=== PATIENT | female | born 1955 | race Caucasian/White ===

== ENCOUNTER → 2022-01-12 08:43 | Outpatient (BNVA) | payer MEDICARE, SELFPAY | PROVIDERS: PCP Physician Assistant Medical; Visit Provider Hospitalist | DX: R91.8 Other nonspecific abnormal finding of lung field (principal); J21.9 Acute bronchiolitis, unspecified | CPT/HCPCS: 99202 ==

== ENCOUNTER 2022-01-21 06:36 | Day surgery (SDC) | payer MEDICARE, SELFPAY ==
[2022-01-18 10:24] VITALS: BMI 29.6
[2022-01-21] VITALS (8 sets, daily range): BP systolic 135–158; BP diastolic 70–83; PULSE 55–70; RESP 14–18; TEMP 36.3–36.7; O2SAT 97–100; BMI 29.9
--- NOTE | ~2022-01-21 | XR_ITS ---
EXAMINATION: XR CHEST CLINICAL INFORMATION: Status post right-sided lung biopsies COMPARISON: CT chest 11/27/2021 TECHNIQUE: Frontal view of the chest was obtained. FINDINGS: Again seen is evidence of prior surgery with the head suture line in the right upper lobe. No pneumothorax is seen. No lung masses detected at this time. The heart and pulmonary vessels appear normal. No CHF or pleural effusions. Degenerative changes and mild biconvex thoracolumbar scoliosis is present. XR/XR chest 1V IMPRESSION: No acute intrathoracic disease.
[2022-01-21] MEDS: Lactated Ringers 1,000 ML 50 ML IVCONT (07:11)
--- NOTE | 2022-01-21 07:28 | P.CONAN_ITS ---
[facility] Active Problems Active Problems: All Active Problems (Updated 01/18/22 @ 10:34 by Audrey Boles RN) Bronchiolitis (Acute) Pulmonary nodules (Acute) Past Medical History Medical History Asthma Basal cell carcinoma Bronchiolitis Depression Elevated cholesterol History of cerebral aneurysm HTN (hypertension) Migraine Osteoarthritis Pulmonary nodules Sleep apnea Tachyarrhythmia Family History Family history of problems with anesthesia: No Surgical History Surgical History (Updated 01/18/22 @ 10:34 by Audrey Boles RN) History of ankle surgery History of bladder suspension procedure History of bunionectomy History of cardiac radiofrequency ablation History of incisional hernia repair History of lung surgery History of total right knee replacement Hx of brain surgery Hx of breast biopsy Hx of cardiac catheterization Hx of cervical discectomy Hx of craniotomy Hx of hysterectomy History of Problems with Anesthesia: No Social History Social History (Updated 01/12/22 @ 08:54 by RACIEL Pacheco) Patient Tobacco Use Status: Former Tobacco user Quit Date: 1991 Tobacco use type: Cigarette Cigarettes Per Day: 20 Years Smoked: 25 Smoked in Last 30 Days: No Use of substances other than those prescribed or required for medical reasons: No Are you DNR?: No Advance Directives: No Advance Directives Information Provided: Yes Meds Allergies Allergy/AdvReac Type Severity Reaction Status Date / Time No Known Allergies Allergy Verified 01/21/22 06:42 Active Medications: Current Medications Albuterol Sulfate (Albuterol Sulfate (0.083%) 2.5 Mg/3 Ml Vial.Neb) 2.5 mg INHALE ONCE PRN PRN Reason: Shortness of Breath/Wheezing Lactated Ringer's (Lr) 1,000 mls @ 50 mls/hr IVCONT .Q20H YANG Last Admin: 01/21/22 07:11 Dose: 50 mls/hr Home Medications Medication Instructions Recorded Confirmed Last Taken Type flecainide 100 mg tablet 100 mg PO BID 01/12/22 01/21/22 01/21/22 05:50 History loteprednol etabonate 0.5 % eye 1 drp ophthalmic (eye) BID 01/12/22 01/21/22 Unknown History drops,suspension metoprolol succinate 25 mg 12.5 mg PO DAILY 01/12/22 01/21/2222 05:50 History tablet,extended release 24 hr omeprazole 20 mg capsule,delayed 20 mg PO DAILY 01/12/22 01/21/22 Unknown History release trazodone 50 mg tablet 100 mg PO BEDTIME PRN Insomnia 01/12/22 01/21/22 Unknown History lorazepam 0.5 mg tablet 0.5 mg PO BID PRN Anxiety 01/18/22 01/21/22 Unknown History Exam Exam Date and Time: January 21, [id number] Height,Weight and Vital Signs: Height 5 ft 5 in Weight 81.647 kg Last Vital Signs Temp 98.0 F 01/21/22 06:47 Pulse 55 01/21/22 06:47 Resp 16 01/21/22 06:47 BP 140/81 H 01/21/22 06:47 Pulse Ox 98 01/21/22 06:47 O2 Del Method 01/21/22 06:47 Airway Mallampati Class: I TM Dist: >3cm Neck ROM: Full Loose/Missing/Broken Teeth: No Heart: rrr Lungs: clear Assessment and Plan Final Anesthetic Review Family History of Problems with Anesthesia: No History of Problems with Anesthesia: No NPO: Yes ASA Class: III Final Preanesthetic Review: No Changes in Pt Med Stat, Meds/Allgs Chart Reviewed, Consent Obtained/Reviewed and Anes Risks/Benef Reviewed Patient Risk: Intermediate Procedure Risk: Intermediate Anesthetic Plan Anesthetic Plan: GA Disposition: Standard PACU
--- NOTE | 2022-01-21 08:00 | MHC.SHP ---
Pre-Procedural Eval Section A Date of Service: 01/21/22 The patient is an INPATIENT: No Changes since office visit: No Cold of Flu in the past 2 weeks, No New Medical Problems, No Changes in Medication and No Patient answered all questions Section B Chief Complaint: Other nonspecific abnormal finding of lung field Allergies: Allergies Allergy/AdvReac Type Severity Reaction Status Date / Time No Known Allergies Allergy Verified 01/21/22 06:42 Plan I have reviewed the history and physical and performed a pertinent physical examination on my patient. No changes have occurred unless specified.
[2022-01-21] MEDS: Mag&Al/Sim/Diphenhyd/Lidocaine 10 ML ORAL.SUSP PO (09:09)
--- NOTE | 2022-01-21 16:44 | P.BOP_ITS ---
Brief Operative Note Date of Service: 01/21/22 Pre-op diagnosis: pulmonary nodule Post-op diagnosis: other (pulmonary nodule, bronchitis) Procedure: bronchoscopy with tras-bronchial RML biopsies, washings, brushings Implants: Surgeon: Familia Koo MD Anesthesia: GETA Was an Agricultural Extension Officer used for this Procedure?: No Estimated blood loss (mL): 0 Condition: stable Disposition: same day
--- NOTE | 2022-01-22 08:35 | OP_ITS ---
SURGEON: Familia Koo MD PREOPERATIVE DIAGNOSIS: Pulmonary nodules. POSTOPERATIVE DIAGNOSIS: Pulmonary nodules and bronchitis. PROCEDURE PERFORMED: Bronchoscopy with transbronchial biopsies from the right middle lobe, washings and brushings. ESTIMATED BLOOD LOSS: COMPLICATIONS: None. There was some slight irritation to the larynx during intubation. ANESTHESIA: The patient received general endotracheal intubation. Difficult airway. Initially she did have some slight trauma to the larynx. ASSISTANTS: None. SPECIMENS: ASA CLASSIFICATION: 3. INTERPRETATION: 1. Successful transbronchial biopsies from the right middle lobe. 2. Microscopic and cytologic brushings from the right middle lobe. 3. Bronchial washings from the right middle lobe for microbiology and cytology. Chest x-ray post procedure without any pneumothoraces and no abnormalities. DESCRIPTION OF PROCEDURE: After the patient was adequately sedated, intubated. The flexible digital bronchoscope was inserted via the ET tube to the level of the main kayla. The patient had a clear trachea with a crisp main kayla. The bronchoscope was then navigated to the entire tracheobronchial tree that was examined to the subsegmental level. The patient did have some evidence of bronchitis with some mucus plugs and some slight erythema to the airways, primarily in the lingula area and also in the right middle lobe area. No evidence of any endobronchial lesions or anything to suggest cancer. The bronchoscope was navigated to the right middle lobe. A cytologic and microscopic brush was introduced and sent to the appropriate location. Bronchial washings were also collected. Then, using the forceps, transbronchial biopsies were collected from the right middle lobe area in the medial segment where the density in the tree and budding was located. The specimens were placed in formalin and then subsequently sent to the pathologist. No evidence of any bleeding. So therefore, epinephrine was not used. Saline was used with good hemostasis. No evidence of any bleeding at the end of the procedure. Then procedure was completed. The total endoscopic time approximately 50 minutes. MD ZEINAB Quezada/RY / [id number]
== END 2022-01-21 10:16 | disposition home or self-care (01) ==
PROVIDERS: PCP Physician Assistant Medical; Visit Provider Hospitalist
PROC: 0BJ08ZZ Inspection of Tracheobronchial Tree, Via Natural or Artificial Opening Endoscopic (ICD-10-PCS; CPT 31622; principal; 2022-01-21 08:00)
DX: R91.8 Other nonspecific abnormal finding of lung field (principal); J21.9 Acute bronchiolitis, unspecified; R06.09 Other forms of dyspnea; R00.0 Tachycardia, unspecified; Z87.891 Personal history of nicotine dependence; Z79.899 Other long term (current) drug therapy
CPT/HCPCS: 31628; 31623; 71045; 87071; 87102; 87116; 87186; 87205; 88112; 88305; J0171; J0330; J1100; J2250; J2405; J3010

== ENCOUNTER 2022-01-26 08:55 | Outpatient (REF) | payer MEDICARE, SELFPAY ==
--- NOTE | 2022-01-26 11:28 | PFT_ITS ---
FLOWS: FEV1 91% of predicted at 2.26 L. FVC 86% of predicted at 2.81 L. FEV1 to FVC ratio of 0.80. No bronchodilator response except in small to medium airways. LUNG VOLUMES: Total lung capacity 90% of predicted at 4.78 L. Residual volume 90% of predicted at 2.01 L. Slow vital capacity 90% of predicted at 2.77 L. Expiratory reserve volume 17% of predicted at 0.14 L. Diffusion capacity is mildly decreased, diffusion capacity corrects to normal after adjustment for alveolar ventilation. IMPRESSION: No obstructive or restrictive ventilatory defect. No bronchodilator response except in small to medium airways. Decreased expiratory reserve volume suggests extrathoracic restriction likely secondary to abdominal obesity. MD LULU Trevizo/MODL / [id number]
== END 2022-01-26 08:56 | disposition home or self-care (01) ==
LOC: HO.RESP 08:55
PROVIDERS: PCP Physician Assistant Medical; Visit Provider Hospitalist
DX: R91.8 Other nonspecific abnormal finding of lung field (principal)
CPT/HCPCS: 94060; 94727; 94729

== ENCOUNTER 2022-02-04 14:23 | Outpatient (REF) | payer MEDICARE, SELFPAY ==
[2022-02-04 14:55] LABS: MANUAL DIFF FLAG NO
[2022-02-04 15:16] LABS: Basophils Absolute Auto 0.1 X10*3/uL (0.0-0.2); Basophils Percent Auto 1.3 % (0-2); Eosinophils Absolute Auto 0.1 X10*3/uL (0.0-0.4); Eosinophils Percent Auto 2.2 % (0-4); Hematocrit 38.8 % (37.0-47.0); Hemoglobin 12.4 g/dl (12.0-16.0); Imm Gran Abs Auto 0.02 X10*3/uL (0.00-0.03); Imm Gran Pct Auto 0.3 % (0.0-0.4); Lymphocytes Absolute Auto 1.6 X10*3/uL (1.2-4.9); Mean Corpuscular Hemoglobin 28.1 pg (27.0-33.0); Mean Corpuscular Volume 87.8 fL (80.0-98.0); Mean Platelet Volume 9.7 fL (9.4-12.3); Monocytes Absolute Auto 0.5 X10*3/uL (0.1-1.2); Neutrophils Percent Auto 63.2 % (45-73); Platelet Count 249 X10*3/uL (160-400); Red Blood Count 4.42 X10*6/uL (4.20-5.50); White Blood Count 6.3 X10*3/uL (4.8-10.8)
[2022-02-04 15:58] LABS: Erythrocyte Sedimentation Rate 8 MM/HR (0-20)
[2022-02-04 15:59] LABS: Anion Gap 15 (12-20); Blood Urea Nitrogen 16 mg/dL (9-16); Calcium 9.7 mg/dL (8.4-10.2); Carbon Dioxide 26 mmol/L (22-29); Chloride 105 mmol/L (96-108); Estimated Glomerular Filt Rate 58; Glucose Random 87 mg/dL (60-115); Potassium 4.7 mmol/L (3.3-5.1); Sodium 141 mmol/L (135-145)
[2022-02-07 03:17] LABS: TS Negative Control Passed; TS Panel A 0; TS Panel B 0; TS Positive Control Passed; TSpotTB Negative (Negative)
[2022-02-08 13:32] LABS: Anti Nuclear Antibody Screen NEGATIVE (NEGATIVE)
[2022-02-08 15:52] LABS: Cyclic Citrullinated Peptide <16 UNITS
[2022-02-09 07:43] LABS: Antibody to SS-A Antigen <1.0 NEG AI (<1.0 NEG); Antibody to SS-B Antigen <1.0 NEG AI (<1.0 NEG)
[2022-02-09 16:06] LABS: Angiotensin Converting Enzyme 42.1 U/L (9-67)
[2022-02-12 11:52] LABS: Asperg fumigatus Precip Abs NEGATIVE (NEGATIVE); Micropoly faeni Abs NEGATIVE (NEGATIVE); Pigeon serum Abs NEGATIVE (NEGATIVE); Saccharo pora viridis Abs NEGATIVE (NEGATIVE); Thermo candidus Abs NEGATIVE (NEGATIVE); Thermoa vulgaris #1 NEGATIVE (NEGATIVE)
== END 2022-02-04 14:24 | disposition home or self-care (01) ==
LOC: HO.LAB 14:23
PROVIDERS: PCP Physician Assistant Medical; Visit Provider Hospitalist
DX: R91.8 Other nonspecific abnormal finding of lung field (principal); R59.9 Enlarged lymph nodes, unspecified; J21.9 Acute bronchiolitis, unspecified
CPT/HCPCS: 36415; 80048; 82164; 85025; 85652; 86038; 86039; 86200; 86235; 86331; 86481; 86606; 86609; 99212

== ENCOUNTER → 2022-05-10 09:50 | Outpatient (BNVA) | payer MEDICARE, SELFPAY | PROVIDERS: PCP Physician Assistant Medical; Visit Provider Hospitalist | DX: R91.8 Other nonspecific abnormal finding of lung field (principal); R59.9 Enlarged lymph nodes, unspecified; J21.9 Acute bronchiolitis, unspecified; J42 Unspecified chronic bronchitis | CPT/HCPCS: 99212 ==

== ENCOUNTER 2023-01-26 08:36 | Outpatient (AMB) | payer MEDICARE, SELFPAY ==
[2023-01-26 08:48] VITALS: PULSE 60; O2SAT 98; BMI 31.6
--- NOTE | 2023-01-26 08:48 | MHC.OFFVIS ---
Intake Vital Signs 01/26/23 08:48 Height 5 ft 5 in Weight 190 lb BMI 31.6 Pulse 60 Pulse Source Pulse Oximeter Pulse Oximetry (%) 98 Oxygen Delivery Method Room Air Intake Visit Reasons: CT Follow Up/Pulmonary Nodules Allergies No Known Allergies Allergy (Verified 01/26/23 08:50) HPI HPI Comments History of Present Illness Details The patient is a 67-year-old woman with a known history of numerous pulmonary nodules. The patient initially underwent surgery for a ground-glass pulmonary nodule at [facility] resulting in a partially herniated lung. She was referred to [facility] where she was seen by thoracic surgery and underwent a surgical correction. Ultimately while [facility] she had other pulmonary nodules noted in required again resection for growing pulmonary nodules. The patient was told she did not have cancer although we do not have the pathology either. Will have her send release of medical records in order to get the pathology from [facility] and I will also try to get the pathology from [facility]. The patient has been doing fairly well from a respiratory status. Although, she does complaint of dyspnea on exertion. Specially if she is going up a hill or flight of stairs. Denies any significant weight loss or night sweats. She has an intermittent cough but is usually nonproductive. The patient does not use any inhalers. She does have issues with tachyarrhythmias and does get short of breath also when heart rate is increased. She is on flecainide for her cardiac condition at this time. The patient had a CT scan of the chest back in 07/25/2020 demonstrating pulmonary nodules and some postsurgical changes of so that some scarring. Now on 11/27/2021 the patient had a repeat CT scan that was personally by me. I also reviewed her other CT scans from 2020. It appears that the right middle lobe density personally more rounded about and slight increase in size in my view. In addition to that she has extensive tree in budding in the right middle lobe area and also in the right lower lobe. Patient also has other pulmonary nodules noted. A in view of the interval increase in the nodular density in the right middle lobe and also the tree-in-bud I do believe that bronchoscopy be a good approach looking for smoldering infection such as mycobacterial infections. 02/04/2022 the patient is here for a pulmonary follow-up visit. She is status post bronchoscopy. The bronchoscopy was complicated by difficult intubation. She did have trauma to the larynx and also to her lip. She was upset about this. I was upset as well. Fortunately is the patient felt better after several days. Her microbiology from the bronchoscopy is no growth today. We still waiting for the mycobacterial cultures which may take up to 12 weeks. The fungal cultures are also no growth today. Her transbronchial biopsies demonstrated normal bronchoalveolar tissue which is reassuring. In addition to that, we did review her pathology from [facility] which demonstrated lymphoid hyperplastic areas and also the wedge biopsies that she did undergo at [facility] which also demonstrated the lymphoid proliferation in addition to that an area in the right upper lobe were it also demonstrated evidence of both non-necrotizing and necrotizing granulomas. We did talk about the differential of the lymphoproliferative conditions such as adding in conditions such as Sjogren's and also sarcoidosis. However, infectious etiology such as mycobacterial disease and also fungal infections also need to be differential crit that reason will going to have her undergo blood work as we wait for the cultures. Her last CT scan of the chest was done back in November 27 which demonstrated the interval worsening right middle lobe density and also tree-in-bud areas. Therefore, have her return in [address] scan to assess any interval worsening of the widening of density. We also did review her pulmonary function studies which are very timely normal except for a decreased diffusing capacity which is likely due to her lung resections. 05/10/2022 the patient is here for a pulmonary follow-up visit. Overall she is doing well from a respiratory status. Denies any significant coughing or shortness of breath. She denies any significant chest congestion. The only thing she does complaint this of night sweats that she has had for many years. She has not had any weight loss and has good appetite. We did review her CT scan of the chest that she had back in April 2022 demonstrating stable 2 cm nodular density in the right middle lobe along with areas of tree in budding in the same distribution. 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 She understands that these infections can be smoldering. The CT scan has no changed as compared to the last 1 which is reassuring. As far as the MAC infection seems to be pansensitive to the macrolides which is reassuring. Although clinically the patient is doing well enough since changing on her CT scans therefore I did recommend holding off on antibacterial therapy at this time. The patient understands that when she does start therapy if she does needed will require 3 antibiotics 3 times a week at least an usually for 15-17 months. She also understands that there is a high risk of relapse. So therefore the patient will monitor symptoms and will plan to repeat the CT scan sometime in the fall 2022. If the patient starts becoming more symptomatic or if her CT scans abnormal then we can consider treating that time. At this time though the with the treating budding will have her perform an Acapella valve for chest physical therapy and decrease mucus plugging burden. 01/26/2023 the patient is here for a pulmonary follow-up visit. The patient overall has been doing well. She denies any significant cough or shortness of breath. She denies any significant weight loss. Actually she is gained weight. Appetite is good. We did review her most recent CT scan of the chest done December. We also compared to her previous CT scans. She does have the right middle lobe airspace disease with parenchymal thickening. I did review back to 2020 and not much different. At this point the patient continues to be asymptomatic. We did discuss starting antimicrobial therapy for mycobacterial disease. Although she understands treatment is prolonged multiple antibiotics. As long as the patient is feeling well we can hold off on treatment. But, I am emphasizing the need for CPT for mucus clearance and bronchopulmonary hygiene. The patient should be using the Acapella valve twice a day. Again I instructed how to use it. Will plan to repeat the CT scan in a year's time or sooner if he develops any worsening symptoms. [facility] Medical History (Updated 05/10/22 @ 12:46 by Familia Koo MD) Chronic bronchitis Osteoarthritis Migraine Elevated cholesterol HTN (hypertension) Basal cell carcinoma Depression Asthma Sleep apnea History of cerebral aneurysm Tachyarrhythmia Bronchiolitis Pulmonary nodules Surgical History (Updated 01/18/22 @ 10:34 by Audrey Boles RN) Hx of cervical discectomy History of total right knee replacement Hx of hysterectomy Hx of brain surgery Hx of craniotomy History of bunionectomy Hx of breast biopsy History of bladder suspension procedure History of ankle surgery History of cardiac radiofrequency ablation Hx of cardiac catheterization History of incisional hernia repair History of lung surgery Social History (Updated 01/12/22 @ 08:54 by HAYDE Pacheco Patient Tobacco Use Status: Former Tobacco user Quit Date: 1991 Tobacco use type: Cigarette Cigarettes Per Day: 20 Years Smoked: 25 Review of Systems Const Denies excessive sweating, Denies fatigue, Denies fever(s), Reports night sweats and Reports weight gain Eyes Denies change in vision ENT Denies sore throat Card Denies chest pain Resp Denies change in phlegm color, Denies chest congestion, Reports cough, Denies hemoptysis, Denies excessive phlegm production, Denies pain on inspiration, Denies pain with cough and Denies wheezing GI Denies abdominal pain Musc Reports abnormal gait Skin/Breast Denies rash Neuro Reports no additional complaints and Reports abnormal gait Endo Denies excessive sweating and Denies fatigue Junior/Lymph Denies easy bleeding and Denies easy bruising Aller/Immun Denies urticaria, Denies seasonal rhinorrhea and Denies wheezing Physical Exam Vital Signs: Last Vital Signs Pulse 60 01/26/23 08:48 Pulse Ox 98 01/26/23 08:48 Oxygen Delivery Method Room Air 01/26/23 08:48 BMI result Body Mass Index 31.6 Const General: comfortable Limitations: crutches HEENT Head: Yes normal to inspection Eyes General: appearance normal, both eyes and all related structures Neck Neck: Yes supple Chest Chest palpation & inspection: normal inspection of the chest Resp Effort & Inspection: normal respiratory effort Auscultation: clear to auscultation bilaterally Cardio Rate: regular rate Rhythm: regular rhythm Heart sounds: S1 normal heart sound present and S2 normal heart sound present GI Auscultation: normal bowel sounds Skin General skin exam: no rashes or lesions noted Extrem General: Yes normal to inspection Assessment & Plan Assessment & Plan (1) Pulmonary nodules: Code(s): R91.8 - Other nonspecific abnormal finding of lung field (2) Bronchiolitis: Code(s): J21.9 - Acute bronchiolitis, unspecified (3) Lymphoid hyperplasia: Comment: with non necrotizing and necrotizing granulomas Code(s): R59.9 - Enlarged lymph nodes, unspecified (4) Chronic bronchitis: Code(s): J42 - Unspecified chronic bronchitis Plan Area in the RML nodular density appears to be larger with evidence of tree-in-bud suggesting bronchiolitis. Her bronchoscopy cytology and pathology were negative for any malignancy which is reassuring. Her previous pathologies demonstrated areas of lymphoid hyperplasia and also caseating and noncaseating granulomas. Micro + for MAC. REC: Repeat CT chest 1 year or sooner if any new symptoms arise Consider treating the MAC if more symptomatic or worsening CT chest CPT with acapella valve F/U 1 year or sooner if symptomatic Coding Level of Care Code Est Pt Level 4 (08809) Diagnoses Pulmonary nodules R91.8 Bronchiolitis J21.9 Lymphoid hyperplasia R59.9 Chronic bronchitis J42 Time Spent (min) 18
== END 2023-01-26 10:01 | disposition home or self-care (01) ==
PROVIDERS: PCP Physician Assistant Medical; Visit Provider Hospitalist
DX: R91.8 Other nonspecific abnormal finding of lung field (principal); J21.9 Acute bronchiolitis, unspecified; R59.9 Enlarged lymph nodes, unspecified; J42 Unspecified chronic bronchitis
CPT/HCPCS: 99214

== ENCOUNTER → 2023-01-26 08:36 | Outpatient (BNVA) | payer MEDICARE, SELFPAY | PROVIDERS: PCP Physician Assistant Medical; Visit Provider Hospitalist | DX: R91.8 Other nonspecific abnormal finding of lung field (principal); J21.9 Acute bronchiolitis, unspecified; J42 Unspecified chronic bronchitis; R59.9 Enlarged lymph nodes, unspecified | CPT/HCPCS: 99212 ==

== ENCOUNTER 2023-02-23 08:09 | Outpatient (REF) | payer MEDICARE, SELFPAY ==
--- NOTE | ~2023-02-23 | US_ITS ---
EXAMINATION: US THYROID CLINICAL INFORMATION: Nontoxic single thyroid nodule. COMPARISON: None available. TECHNIQUE: Linear transducer grayscale and color Doppler examination with attention to the region of the thyroid. FINDINGS: SIZE: Measurements of the thyroid lobes and nodules are given in sagittal, anteroposterior and transverse dimensions respectively. Right Thyroid Lobe: 4.7 x 1.2 x 1.4 cm, volume 4.1 mL. Parenchyma: The gland echotexture is homogeneous. Thyroid vascularity is increased. Left Thyroid Lobe: 3.9 x 0.95 x 1.2 cm, volume 2.3 mL. Parenchyma: The gland echotexture is homogeneous. Thyroid vascularity is increased. Isthmus: 0.32 cm in maximum AP dimension. Estimated total number of nodules greater than or equal to 1 cm: 0. Big Data Developer nodules are described as follows: 1. Location: Right inferior. Size: 0.41 x 0.27 x 0.41 cm, volume 0.02 mL. Nodule characteristics: Composition: Cystic(0). ACR TI-RADS total points: 0 ACR TI-RADS category: 1 2. Location: Right mid. Size: 0.46 x 0.35 x 0.45 cm, volume 0.04 mL. Nodule characteristics: Composition: Cystic(0). ACR TI-RADS total points: 0 ACR TI-RADS category: 1 3. Location: Left superior. Size: 0.35 x 0.20 x 0.27 cm, volume 0.01 mL. Nodule characteristics: Composition: Cystic(0). ACR TI-RADS total points: 0 ACR TI-RADS category: 1 4. Location: Left superior. Size: 0.34 x 0.20 x 0.36 cm, volume 0.01 mL. Nodule characteristics: Composition: Cystic(0). ACR TI-RADS total points: 0 ACR TI-RADS category: 1 NODES: No lymphadenopathy is seen in the tissue surrounding the thyroid gland. US/US thyroid IMPRESSION: Bilateral subcentimeter thyroid nodules all with ACR TI-RADS total points of 0. ACR TI-RADS RECOMMENDATION REFERENCE: Ultrasound-guided fine-needle aspiration, followup ultrasound, no further follow up. * TR1 (0 point) and TR2 (2 points): No FNA or follow up. * TR3 (3 points): FNA if more than or equal to 2.5 cm in maximum dimension, followup ultrasound in 1, 3 and 5 years if 1.5 to 2.4 cm in maximum dimension. * TR4 (4-6 points): FNA if more than or equal to 1.5 cm in maximum dimension, followup ultrasound in 1, 2, 3 and 5 years if 1 to 1.4 cm in maximum dimension. * TR5 (more than or equal to 7 points): FNA if more than or equal to 1 cm in maximum dimension, followup ultrasound every year for 5 years if 0.5 to 0.9 cm in maximum dimension. * TR3, TR4 or TR5 nodules that are below the size threshold for followup receive no follow up.
== END 2023-02-23 08:10 | disposition home or self-care (01) ==
LOC: HO.US 08:09
PROVIDERS: Visit Provider Hospitalist
DX: E04.1 Nontoxic single thyroid nodule (principal)
CPT/HCPCS: 76536

== ENCOUNTER 2024-02-01 10:49 | Outpatient (AMB) | payer MEDICARE, SELFPAY ==
[2024-02-01 11:02] VITALS: BP 128/70; PULSE 57; O2SAT 96; BMI 33.4
--- NOTE | 2024-02-01 11:02 | MHC.OFFVIS ---
Vital Signs 02/01/24 11:02 Height 5 ft 5.5 in Weight 203 lb 14.841 oz BMI 33.4 BP 128/70 Blood Pressure Location Lt brachial Position Sitting Pulse 57 Pulse Source Pulse Oximeter Pulse Oximetry (%) 96 Oxygen Delivery Method Room Air Intake Visit Reasons: pulmonary nodules Edge Inker Heels Required: No Allergies No Known Allergies Allergy (Verified 02/01/24 11:03) HPI Comments Details: The patient is a 68-year-old woman with a known history of numerous pulmonary nodules. The patient initially underwent surgery for a ground-glass pulmonary nodule at [facility] resulting in a partially herniated lung. She was referred to [facility] where she was seen by thoracic surgery and underwent a surgical correction. Ultimately while [facility] she had other pulmonary nodules noted in required again resection for growing pulmonary nodules. The patient was told she did not have cancer although we do not have the pathology either. Will have her send release of medical records in order to get the pathology from [facility] and I will also try to get the pathology from [facility]. The patient has been doing fairly well from a respiratory status. Although, she does complaint of dyspnea on exertion. Specially if she is going up a hill or flight of stairs. Denies any significant weight loss or night sweats. She has an intermittent cough but is usually nonproductive. The patient does not use any inhalers. She does have issues with tachyarrhythmias and does get short of breath also when heart rate is increased. She is on flecainide for her cardiac condition at this time. The patient had a CT scan of the chest back in 07/25/2020 demonstrating pulmonary nodules and some postsurgical changes of so that some scarring. Now on 11/27/2021 the patient had a repeat CT scan that was personally by me. I also reviewed her other CT scans from 2020. It appears that the right middle lobe density personally more rounded about and slight increase in size in my view. In addition to that she has extensive tree in budding in the right middle lobe area and also in the right lower lobe. Patient also has other pulmonary nodules noted. A in view of the interval increase in the nodular density in the right middle lobe and also the tree-in-bud I do believe that bronchoscopy be a good approach looking for smoldering infection such as mycobacterial infections. 02/04/2022 the patient is here for a pulmonary follow-up visit. She is status post bronchoscopy. The bronchoscopy was complicated by difficult intubation. She did have trauma to the larynx and also to her lip. She was upset about this. I was upset as well. Fortunately is the patient felt better after several days. Her microbiology from the bronchoscopy is no growth today. We still waiting for the mycobacterial cultures which may take up to 12 weeks. The fungal cultures are also no growth today. Her transbronchial biopsies demonstrated normal bronchoalveolar tissue which is reassuring. In addition to that, we did review her pathology from [facility] which demonstrated lymphoid hyperplastic areas and also the wedge biopsies that she did undergo at [facility] which also demonstrated the lymphoid proliferation in addition to that an area in the right upper lobe were it also demonstrated evidence of both non-necrotizing and necrotizing granulomas. We did talk about the differential of the lymphoproliferative conditions such as adding in conditions such as Sjogren's and also sarcoidosis. However, infectious etiology such as mycobacterial disease and also fungal infections also need to be differential crit that reason will going to have her undergo blood work as we wait for the cultures. Her last CT scan of the chest was done back in November 27 which demonstrated the interval worsening right middle lobe density and also tree-in-bud areas. Therefore, have her return in [address] scan to assess any interval worsening of the widening of density. We also did review her pulmonary function studies which are very timely normal except for a decreased diffusing capacity which is likely due to her lung resections. 05/10/2022 the patient is here for a pulmonary follow-up visit. Overall she is doing well from a respiratory status. Denies any significant coughing or shortness of breath. She denies any significant chest congestion. The only thing she does complaint this of night sweats that she has had for many years. She has not had any weight loss and has good appetite. We did review her CT scan of the chest that she had back in April 2022 demonstrating stable 2 cm nodular density in the right middle lobe along with areas of tree in budding in the same distribution. 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 She understands that these infections can be smoldering. The CT scan has no changed as compared to the last 1 which is reassuring. As far as the MAC infection seems to be pansensitive to the macrolides which is reassuring. Although clinically the patient is doing well enough since changing on her CT scans therefore I did recommend holding off on antibacterial therapy at this time. The patient understands that when she does start therapy if she does needed will require 3 antibiotics 3 times a week at least an usually for 15-17 months. She also understands that there is a high risk of relapse. So therefore the patient will monitor symptoms and will plan to repeat the CT scan sometime in the fall 2022. If the patient starts becoming more symptomatic or if her CT scans abnormal then we can consider treating that time. At this time though the with the treating budding will have her perform an Acapella valve for chest physical therapy and decrease mucus plugging burden. 01/26/2023 the patient is here for a pulmonary follow-up visit. The patient overall has been doing well. She denies any significant cough or shortness of breath. She denies any significant weight loss. Actually she is gained weight. Appetite is good. We did review her most recent CT scan of the chest done December. We also compared to her previous CT scans. She does have the right middle lobe airspace disease with parenchymal thickening. I did review back to 2020 and not much different. At this point the patient continues to be asymptomatic. We did discuss starting antimicrobial therapy for mycobacterial disease. Although she understands treatment is prolonged multiple antibiotics. As long as the patient is feeling well we can hold off on treatment. But, I am emphasizing the need for CPT for mucus clearance and bronchopulmonary hygiene. The patient should be using the Acapella valve twice a day. Again I instructed how to use it. Will plan to repeat the CT scan in a year's time or sooner if he develops any worsening symptoms. 02/01/2024 the patient is here for a pulmonary follow-up visit. The patient overall has been doing well. She has had issues with her knee and therefore was immobilized for some time after having surgery and has not been able to exercise regularly. Unfortunately she gained about 20 lb which is bothersome to her. She feels like it has affected her breathing. She does complaint of dyspnea on exertion which is [id number] severity. Also complains of cough. She also noticed some wheezing at times. We did review her last CT scan of the chest that she had just a few weeks ago at [facility]. I personally reviewed and compared to her previous CT scan. No significant changes in the nodular densities in the right middle lobe. She also has some atelectasis in the left lower lobe area and some changes in the right upper lobe area as well that appeared to be stable and unchanged. Will plan to have her come back in a year and repeat her PFTs and also her CT scan. In the meantime she will start using her rescue inhaler. Hopefully this is enough. She does have a history of cardiac arrhythmias of send her Xopenex. If the patient still has worsening shortness of breath or wheezing while in the Xopenex she always call and we can think about a maintenance inhaler and may be considering the PFTs at an earlier time. [facility] Medical History (Updated 02/01/24 @ 22:15 by Familia Koo MD) Chronic bronchitis Osteoarthritis Migraine Elevated cholesterol HTN (hypertension) Basal cell carcinoma Depression Asthma Sleep apnea History of cerebral aneurysm Tachyarrhythmia Bronchiolitis Pulmonary nodules Surgical History (Updated 01/18/22 @ 10:34 by Audrey Boles RN) Hx of cervical discectomy History of total right knee replacement Hx of hysterectomy Hx of brain surgery Hx of craniotomy History of bunionectomy Hx of breast biopsy History of bladder suspension procedure History of ankle surgery History of cardiac radiofrequency ablation Hx of cardiac catheterization History of incisional hernia repair History of lung surgery Social History (Updated 01/12/22 @ 08:54 by RACIEL Pacheco) Patient Tobacco Use Status: Former Tobacco user Tobacco use type: Cigarette Cigarettes Per Day: 20 Years Smoked: 25 Review of Systems Const Denies excessive sweating, Denies fatigue, Denies fever(s) and Reports weight gain Eyes Denies change in vision ENT Denies sore throat Card Denies chest pain Resp Denies change in phlegm color, Denies chest congestion, Reports cough, Denies hemoptysis, Denies excessive phlegm production, Denies pain on inspiration, Denies pain with cough and Denies wheezing GI Denies abdominal pain Musc Reports no additional complaints Skin/Breast Denies rash Neuro Reports no additional complaints Endo Denies excessive sweating and Denies fatigue Junior/Lymph Denies easy bleeding and Denies easy bruising Aller/Immun Denies urticaria, Denies seasonal rhinorrhea and Denies wheezing Physical Exam Vital Signs: Last Vital Signs Pulse 57 02/01/24 11:02 BP 128/70 02/01/24 11:02 Pulse Ox 96 02/01/24 11:02 Oxygen Delivery Method Room Air 02/01/24 11:02 BMI result Body Mass Index 33.4 Const General: comfortable Limitations: crutches HEENT Head: Yes normal to inspection Eyes General: appearance normal, both eyes and all related structures Neck Neck: Yes supple Chest Chest palpation & inspection: normal inspection of the chest Resp Effort & Inspection: normal respiratory effort Auscultation: wheezes and diminished lung sounds Cardio Rate: regular rate Rhythm: regular rhythm Heart sounds: S1 normal heart sound present and S2 normal heart sound present GI Auscultation: normal bowel sounds Skin General skin exam: no rashes or lesions noted Extrem General: Yes normal to inspection Assessment & Plan Assessment & Plan (1) Pulmonary nodules: Code(s): R91.8 - Other nonspecific abnormal finding of lung field Category: Medical (2) Bronchiolitis: Code(s): J21.9 - Acute bronchiolitis, unspecified Category: Medical (3) Lymphoid hyperplasia: Comment: with non necrotizing and necrotizing granulomas Code(s): R59.9 - Enlarged lymph nodes, unspecified Category: Medical (4) Chronic bronchitis: Code(s): J42 - Unspecified chronic bronchitis Category: Medical Qualifiers: Chronic bronchitis type: simple Qualified Code(s): J41.0 - Simple chronic bronchitis Plan Area in the RML nodular density appears to be larger with evidence of tree-in-bud suggesting bronchiolitis. Her bronchoscopy cytology and pathology were negative for any malignancy which is reassuring. Her previous pathologies demonstrated areas of lymphoid hyperplasia and also caseating and noncaseating granulomas. Micro + for MAC. REC: start Xopenex as needed and before exercise Repeat CT chest 1 year or sooner if any new symptoms arise Consider treating the MAC if more symptomatic or worsening CT chest CPT with acapella valve PFTs in 1 yr or sooner if worsening respiratory symptoms weight management F/U 1 year or sooner if symptomatic Orders: Orders PFT pulmonary function test 1 Year R91.8 - Other nonspecific abnormal finding of lung field CT chest wo IV con 1 Year R91.8 - Other nonspecific abnormal finding of lung field Medications: New levalbuterol tartrate 45 mcg/actuation 1 puff inhalation Q4H PRN 15 ea 11RF for wheezing Coding Level of Care Code Est Pt Level 4 (00286) Diagnoses Pulmonary nodules R91.8 Bronchiolitis J21.9 Lymphoid hyperplasia R59.9 Simple chronic bronchitis J41.0 Chronic bronchitis type: simple Time Spent (min) 17
== END 2024-02-01 11:26 | disposition home or self-care (01) ==
PROVIDERS: PCP Physician Assistant Medical; Visit Provider Hospitalist
DX: R91.8 Other nonspecific abnormal finding of lung field (principal); J21.9 Acute bronchiolitis, unspecified; R59.9 Enlarged lymph nodes, unspecified; J41.0 Simple chronic bronchitis
CPT/HCPCS: 99214

== ENCOUNTER → 2024-02-01 10:49 | Outpatient (BNVA) | payer MEDICARE, SELFPAY | PROVIDERS: PCP Physician Assistant Medical; Visit Provider Hospitalist | DX: J41.0 Simple chronic bronchitis (principal); J21.9 Acute bronchiolitis, unspecified; R91.8 Other nonspecific abnormal finding of lung field; R59.9 Enlarged lymph nodes, unspecified | CPT/HCPCS: 99212 ==

== ENCOUNTER 2025-01-30 09:53 | Outpatient (AMB) | payer MEDICARE, SELFPAY ==
--- OUTSIDE RECORDS SUMMARY | 2024-09-06 04:30 | XMS_ITS ---
Author Organization [facility] Address [address] [place] [address] Care Team Providers Care Laminating Machine Operator Name Role Phone Jennifer Lipscomb PA-C Primary Care Provider Carine vailable Viri Agudelo Unavailable [phone] Gosia Rosario [phone] REASON FOR VISIT Seen Sooner Encounters Encounter Location Date Provider Diagnosis [facility] [address] [place] [address] 09/06/2024 Gosia Rosario Plan Of Treatment Next Appt Details Provider Name:Viri Agudelo , 03/05/2025 11:00:00 AM, [address] [place], [address], Progress Notes * Kanchan ZIMMERMAN MDOB:1955 (69 yo F)Acc No.[id number]:09/06/2024 Progress Notes Patient: Cate Kanchan MCBRIDE Provider: Joe Rosario DPM :1955 A ge:68 Y S ex:Female Date:09/06/2024 [place] Pcp:Jennifer Lipscomb PA-C Subjective: * Chief Complaints: * 1 . Seen Sooner. * Medical History: Objective: * Vitals: Assessment: Plan: * Treatment: * Images: * The named appointment provid er may or may not be the originator of this progress note, and it is not deemed complete until electronically signed by the appointment provider. Sign off status: Pending * Provider: Joe Rosario DPM Date: 0 09/06/2024 Generated for Tom Cornejo/Malik on: 1 10:56 AM EDT
[2025-01-30 09:57] VITALS: BP 128/72; PULSE 68; O2SAT 98; BMI 29.6
--- NOTE | 2025-01-30 09:57 | A.OFFVIS_ITS ---
Vital Signs 01/30/25 09:57 Height 5 ft 5.5 in Weight 180 lb 12.465 oz BMI 29.6 BP 128/72 Blood Pressure Location Lt brachial Position Sitting Pulse 68 Pulse Source Pulse Oximeter Pulse Oximetry (%) 98 Oxygen Delivery Method Room Air Intake Visit Reasons: Pulmonary Nodules Accompanied by: Self / Same As Patient Allergies No Known Allergies Allergy (Verified 01/30/25 10:02) HPI Comments Details: The patient is a 69 year-old woman with a known history of numerous pulmonary nodules. The patient initially underwent surgery for a ground-glass pulmonary nodule at [facility] resulting in a partially herniated lung. She was referred to [facility] where she was seen by thoracic surgery and underwent a surgical correction. Ultimately while [facility] she had other pulmonary nodules noted in required again resection for growing pulmonary nodules. The patient was told she did not have cancer although we do not have the pathology either. Will have her send release of medical records in order to get the pathology from [facility] and I will also try to get the pathology from [facility]. The patient has been doing fairly well from a respiratory status. Although, she does complaint of dyspnea on exertion. Specially if she is going up a hill or flight of stairs. Denies any significant weight loss or night sweats. She has an intermittent cough but is usually nonproductive. The patient does not use any inhalers. She does have issues with tachyarrhythmias and does get short of breath also when heart rate is increased. She is on flecainide for her cardiac condition at this time. The patient had a CT scan of the chest back in 07/25/2020 demonstrating pulmonary nodules and some postsurgical changes of so that some scarring. Now on 11/27/2021 the patient had a repeat CT scan that was personally by me. I also reviewed her other CT scans from 2020. It appears that the right middle lobe d ensity personally more rounded about and slight increase in size in my view. In addition to that she has extensive tree in budding in the right middle lobe area and also in the right lower lobe. Patient also has other pulmonary nodules noted. A in view of the interval increase in the nodular density in the right middle lobe and also the tree-in-bud I do believe that bronchoscopy be a good approach looking for smoldering infection such as mycobacterial infections. 02/04/2022 the patient is here for a pulmonary follow-up visit. She is status post bronchoscopy. The bronchoscopy was complicated by difficult intubation. She did have trauma to the larynx and also to her lip. She was upset about this. I was upset as well. Fortunately is the patient felt better after several days. Her microbiology from the bronchoscopy is no growth today. We still waiting for the mycobacterial cultures which may take up to 12 weeks. The fungal cultures are also no growth today. Her transbronchial biopsies demonstrated normal bronchoalveolar tissue which is reassuring. In addition to that, we did review her pathology from [facility] which demonstrated lymphoid hyperplastic areas and also the wedge biopsies that she did undergo at [facility] which also demonstrated the lymphoid proliferation in addition to that an area in the right upper lobe were it also demonstrated evidence of both non-necrot izing and necrotizing granulomas. We did talk about the differential of the lymphoproliferative conditions such as adding in conditions such as Sjogren's and also sarcoidosis. However, infectious etiology such as mycobacterial disease and also fungal infections also need to be differential crit that reason will going to have her undergo blood work as we wait for the cultures. Her last CT scan of the chest was done back in November 27 which demonstrated the interval worsening right middle lobe density and also tree-in-bud areas. Therefore, have her return in [address] scan to assess any interval worsening of the widening of density. We also did review her pulmonary function studies which are very timely normal except for a decreased diffusing capacity which is likely due to her lung resections. 05/10/2022 the patient is here for a pulmonary follow-up visit. Overall she is doing well from a respiratory status. Denies any significant coughing or shortness of breath. She denies any significant chest congestion. The only thing she does complaint this of night sweats that she has had for many years. She has not had any weight loss and has good appetite. We did review her CT scan of the chest that she had back in April 2022 demonstrating stable 2 cm nodular density in the right middle lobe along with areas of tree in budding in the same distribution. 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 She understands that these infections can be smoldering. The CT scan has no changed as compared to the last 1 which is reassuring. As far as the MAC infection seems to be pansensitive to the macrolides which is reassuring. Although clinically the patient is doing well enough since changing on her CT scans therefore I did recommend holding off on antibacterial therapy at this time. The patient understands that when she does start therapy if she does needed will require 3 antibiotics 3 times a week at least an usually for 15-17 months. She also understands that there is a high risk of relapse. So therefore the patient will monitor symptoms and will plan to repeat the CT scan sometime in the fall 2022. If the patient starts becoming more symptomatic or if her CT scans abnormal then we can consider treating that time. At this time though the with the treating budding will have her perform an Acapella valve for chest physical therapy and decrease mucus plugging burden. 01/26/2023 the patient is here for a pulmonary follow-up visit. The patient overall has been doing well. She denies any significant cough or shortness of breath. She denies any significant weight loss. Actually she is gained weight. Appetite is good. We did review her most recent CT scan of the chest done December. We also compared to her previous CT scans. She does have the right middle lobe airspace disease with parenchymal thickening. I did review back to 2020 and not much different. At this point the patient continues to be asymptomatic. We did discuss starting antimicrobial therapy for mycobacterial disease. Although she understands treatment is prolonged multiple antibiotics. As long as the patient is feeling well we can hold off on treatment. But, I am emphasizing the need for CPT for mucus clearance and bronchopulmonary hygiene. The patient should be using the Acapella valve twice a day. Again I instructed how to use it. Will plan to repeat the CT scan in a year's time or sooner if he develops any worsening symptoms. 02/01/2024 the patient is here for a pulmonary follow-up visit. The patient overall has been doing well. She has had issues with her knee and therefore was immobilized for some time after having surgery and has not been able to exercise regularly. Unfortunately she gained about 20 lb which is bothersome to her. She feels like it has affected her breathing. She does complaint of dyspnea on exertion which is [id number] severity. Also complains of cough. She also noticed some wheezing at times. We did review her last CT scan of the chest that she had just a few weeks ago at [facility]. I personally reviewed and compared to her previous CT scan. No significant changes in the nodular densities in the right middle lobe. She also has some atelectasis in the left lower lobe area and some changes in the right upper lobe area as well that appeared to be stable and unchanged. Will plan to have her come back in a year and repeat her PFTs and also her CT scan. In the meantime she will start using her rescue inhaler. Hopefully this is enough. She does have a history of cardiac arrhythmias of send her Xopenex. If the patient still has worsening shortness of breath or wheezing while in the Xopenex she always call and we can think about a maintenance inhaler and may be considering the PFTs at an earlier time. 01/30/2025 the patient is here for pulmonary follow-up visit. Overall the patient is complaining of worsening dyspnea on exertion. Specially going up a flight of stairs. Moderate severity. She has tried inhalers in the past without any significant improvement. She does have pulmonary function studies scheduled. In the meantime we did go for brief walking oximetry the patient did maintain a pulse ox above 97 98%. Heart rate was stable. She did follow-up with Cardiology. She did have an EKG. The patient does complaint of heaviness of the thighs suggesting some degree of provocation. She is going to have a CT scan of the abdomen looking for peripheral vascular disease. The patient also did undergo a CT scan of the chest that was personally by me. She had 01/09/2025 and this was a local place. She does have still some nodular densities in the right middle lobe which is stable compared to 2023. No evidence of any parenchymal disease elsewhere. No explanation for the patient has worsening dyspnea symptoms. Will see if there is any worsening PFT findings. The patient does have decreased lung volume because of lung resection. [facility] Medical History (Updated 01/30/25 @ 21:58 by Familia Koo MD) Dyspnea Chronic bronchitis Osteoarthritis Migraine Elevated cholesterol HTN (hypertension) Basal cell carcinoma Depression Asthma Sleep apnea History of cerebral aneurysm Tachyarrhythmia Bronchiolitis Pulmonary nodules Surgical History (Updated 01/18/22 @ 10:34 by Audrey Boles RN) Hx of cervical discectomy History of total right knee replacement Hx of hysterectomy Hx of brain surgery Hx of craniotomy History of bunionectomy Hx of breast biopsy History of bladder suspension procedure History of ankle surgery History of cardiac radiofrequency ablation Hx of cardiac catheterization History of incisional hernia repair History of lung surgery Social History Patient Tobacco Use Status: Former Tobacco user Tobacco use type: Cigarette Cigarettes Per Day: 20 Years Smoked: 25 Review of Systems Const Denies excessive sweating, Denies fatigue, Denies fever(s) and Reports weight gain Eyes Denies change in vision ENT Denies sore throat Card Denies chest pain Resp Denies change in phlegm color, Denies chest congestion, Reports cough, Denies hemoptysis, Denies excessive phlegm production, Denies pain on inspiration, Denies pain with cough and Denies wheezing GI Denies abdominal pain Musc Reports no additional complaints Skin/Breast Denies rash Neuro Reports no additional complaints Endo Denies excessive sweating and Denies fatigue Junior/Lymph Denies easy bleeding and Denies easy bruising Aller/Immun Denies urticaria, Denies seasonal rhinorrhea and Denies wheezing Physical Exam Vital Signs: Last Vital Signs Pulse 68 01/30/25 09:57 BP 128/72 01/30/25 09:57 Pulse Ox 98 01/30/25 09:57 Oxygen Delivery Method Room Air 01/30/25 09:57 BMI result Body Mass Index 29.6 Const General: comfortable Limitations: crutches HEENT Head: Yes normal to inspection Eyes General: appearance normal, both eyes and all related structures Neck Neck: Yes supple Chest Chest palpation & inspection: normal inspection of the chest Resp Effort & Inspection: normal respiratory effort Auscultation: wheezes and diminished lung sounds Cardio Rate: regular rate Rhythm: regular rhythm Heart sounds: S1 normal heart sound present and S2 normal heart sound present GI Auscultation: normal bowel sounds Skin General skin exam: no rashes or lesions noted Extrem General: Yes normal to inspection Assessment & Plan Assessment & Plan (1) Pulmonary nodules: Code(s): R91.8 - Other nonspecific abnormal finding of lung field Category: Medical (2) Bronchiolitis: Code(s): J21.9 - Acute bronchiolitis, unspecified Category: Medical (3) 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 Her bronchoscopy cytology and pathology were negative for any malignancy which is reassuring. Her previous pathologies demonstrated areas of lymphoid hyperplasia and also caseating and noncaseating granulomas. Micro + for MAC. REC: Xopenex as needed and before exercise Repeat CT chest 1 year or sooner if any new symptoms arise CPT with acapella valve PFTs weight management, exercise routine F/U 1 year or sooner if symptomatic Coding Level of Care Code Est Pt Level 4 (02510) Complex EM visit Add On G2211 Diagnoses Pulmonary nodules R91.8 Bronchiolitis J21.9 Lymphoid hyperplasia R59.9 Simple chronic bronchitis J41.0 Chronic bronchitis type: simple Dyspnea on exertion R06.09 Dyspnea type: dyspnea on exertion Time Spent (min) 17
--- OUTSIDE RECORDS SUMMARY | 2025-01-30 10:56 | XMS_ITS | Encounter Summary ---
Author Organization [facility] Address [address] [place] [address] Care Team Providers Care Shirt Line Operator Name Role Phone Jennifer Padron PA-C Primary Care Provi teo Lorri Blair MD Unavailable Ottoniel Reece MD Unavailable Unavailable Familia Koo MD Unavailable [phone] Steve Rangel MD Unavailable Unavailable Jignesh Valentine MD Unavailable [phone] Encounter Details Date Type Department Care Team (Late st Contact Info) Description 10/31/2024 Scanned Document [address] [phone] Primary Care, Scan Social History Tobacco Use Types Packs/Day Years Used Date Smoking Tobacco: Former Cigarettes 1 20 980 - 1999 Smokeless Tobacco: Never Alcohol Use Standard Drinks/Week Comments Yes 0 (1 standard drink = 0.6 oz pur e alcohol) occasional PHQ-2 Answer Date Recorded PHQ-2 Total Score 1 11/22/2023 Comments Unknown Sex and Gender Information Value Date Recorded Sex Assigned at Female 05/06/2022 5:04 PM EST Legal Sex Female 4:49 PM EST Gender Identity Female 05/06/2022 5:04 PM EST Sexual Orientation Choose not to disclose 2022 5:04 PM EST documented as of this encounter Plan of Treatment Upcoming Encounters Date Type Department Care Team (Late st Contact Info) Description 06/13/2025 9:30 AM EST Office Visit [address] [phone] Jennifer Padron PA-C [address] [place] [address] documented as of this encounter Visit Diagnoses Not on filedocumented in this encounter Care Teams Shirt Line Operator Relationship Specialty Start Date End Date Jennifer Padron PA-C PCP - General Adult Health - PA/APNP/DISPENSER OPERATOR/ARCHITECTURAL EXAMINER 05/06/22 Lorri Blair MD [address] [place] [address] Referring Provider Urogynecology 11/22/23 Ottoniel Reece MD [address] [place] [phone] Cardiology-Scan 11/22/23 Familia Koo MD [address] [place] [address] Pulmonary Disease 11/22/23 Steve Rangel MD [address] [place] [address] Referring Provider Gastroenterology 11/22/23 Jignesh Valentine MD [address] [place] [address] Physician Neurosurgery-Scan 11/22/23 Mj Friend Physician Endocrinology 10/31/23 Anita Lemuel [facility] Dermatology 10/31/23 documented as of this encounter
--- OUTSIDE RECORDS SUMMARY | 2025-01-30 10:56 | XMS_ITS | Encounter Summary ---
Author Organization [facility] Address [address] [place] [address] Care Team Providers Care Beauty Parlor Cleaner Name Role Phone Jennifer Padron Primary Care Provider [phone] Reason for Visit * Reason Onset Date Comments Med Refill 01/24/2025 zepbound Encounter Details Date Type Department Care Team (Late st Contact Info) Description 01/24/2025 Telephone Bariatric Surgery [facility] [address] [place] [address] Devante Vergara MD [address] [place] [phone] Social History Tobacco Use Types Packs/Day Years Used Date Smoking Tobacco: Former Smokeless Tobacco: Never Alcohol Use Standard Drinks/Week Comments Yes 0 (1 standard drink = 0.6 oz pur e alcohol) Comments Unknown Sex and Gender Information Value Date Recorded Sex Assigned at Female 12/14/2024 9:22 AM EDT Legal Sex Female 7:40 AM EST Gender Identity Female 12/14/2024 9:22 AM EDT Sexual Orientation Not on file documented as of this encounter Progress Notes * Cuca Parks - 01/24/2025 11:12 AM EDT Patient did well on Zepbound 10 mgs and would like a refill If appropriate, please send script for Zepbound 10 mgs to their pharmacy. The patient does have a follow up in 04/04/2025 documented in this encounter Plan of Treatment Upcoming Encounters Date Type Department Care Team (Late st Contact Info) Description 03/06/2025 8:30 AM EST Appointment [facility] Endoscopy [address] [place] [phone] Odin Garza MD [address] [place] [address] 04/04/2025 8:15 AM EST Office Visit Bariatric Surgery - [place] [address] [place] [address] Devante Vergara MD [address] [place] [phone] documented as of this encounter Visit Diagnoses Not on filedocumented in this encounter Care Teams Beauty Parlor Cleaner Relationship Specialty Start Date End Date Jennifer Padron PA [address] [place] [address] PCP - General Physician Auction Block Clerk 01/07/25 documented as of this encounter
--- OUTSIDE RECORDS SUMMARY | 2025-01-30 10:56 | XMS_ITS ---
Author Name [facility] History of Medication Use Medication Directions Dispensed Refills Start Date End Date Stat us LORazepam (ATIVAN) 0.5 MG tablet Take 1 tablet (0.5 mg total) by mouth 2 (two) times a day as needed. active OMEprazole (PriLOSEC) 20 MG capsule Take 1 capsule (20 mg total) by mouth daily. active Problems Problem Status Onset Date Problem Type Date of Resoluti on Source Infrarenal abdominal aortic aneurysm (AAA) without rupture active 2023-06-12 [facility] Age-related osteoporosis without current pathological fracture active 2023-06-12 ProblemAct [facility] Mild intermittent asthma without complication active 2023-06-12 ProblemAct [facility] PVC (premature ventricular contraction) active 2017-09-21 ProblemAct [facility] First degree heart block active 2021-08-11 ProblemAct [facility] Primary hypertension active 2023-06-12 ProblemAct [facility] Recurrent major depressive disorder, in partial remission active 2023-06-12 ProblemAct [facility] Basal cell carcinoma of skin active 2017-09-21 ProblemAct [facility] History of cerebral aneurysm active 2023-06-12 ProblemAct [facility] Migraine with aura active 2023-06-12 ProblemAct [facility] Paroxysmal atrial fibrillation active 2021-02-17 ProblemAct [facility] Primary osteoarthritis involving multiple joints active 2023-06-12 ProblemAct [facility] Atherosclerosis of abdominal aorta active 2023-06-12 ProblemAct [facility] Female cystocele active 2023-06-12 ProblemAct [facility] Obstructive sleep apnea syndrome active 2023-06-12 ProblemAct [facility] Gastroesophageal reflux disease without esophagitis active 2023-06-12 ProblemAct [facility] Mycobacterium avium complex active 2023-06-12 ProblemAct [facility] History of malignant melanoma active 2023-06-12 ProblemAct [facility] Coronary artery disease involving [facility] [place] coronary artery of [facility] [place] heart active 2023-06-12 ProblemAct [facility] Lung nodule active 2018-10-18 ProblemAct [facility] Other hyperlipidemia active 2023-06-12 ProblemAct [facility] Immunizations Vaccine Date Source Lot Number Status Covid-19 Vaccine, Unspecified 11/23/2021 [facility] completed Covid-19 Vaccine, Unspecified 03/12/2021 [facility] completed Pneumococcal Polysaccharide 23-Valent 09/25/2020 [facility] completed Covid-19 mRNA Primary Series Vaccine - Moderna 0.5 mL Full Dose 07/21/2020 [facility] [id number] completed Covid-19 mRNA Primary Series Vaccine - Moderna 0.5 mL Full Dose 06/23/2020 [facility] [id number] completed Pneumococcal Conjugate 13-Valent 09/25/2019 [facility] completed Tdap 09/25/2019 [facility] completed Zoster Vaccine Live/Attenuated (Zostavax) 11/29/2013 [facility] completed Pneumococcal Polysaccharide 23-Valent 04/17/2013 [facility] [id number] completed Encounters Encounter Type Encounter Reason Primary Diagnosis Location Date Ambulatory Encounter for general adult medical examination without abnormal findings Encounter for general adult medical examination without abnormal findings [place] 12/11/2024 Ambulatory Benign paroxysmal vertigo, bilateral Benign paroxysmal vertigo, bilateral [place] 09/17/2024 Ambulatory Encounter for general adult medical examination without abnormal findings Encounter for general adult medical examination without abnormal findings [place] 11/22/2023 Ambulatory Gastro-esophageal reflux disease without esophagitis Gastro-esophageal reflux disease without esophagitis [place] 07/26/2023 Ambulatory [place] 06/03/2022 Ambulatory [place] 06/01/2022 Ambulatory [place] 05/31/2022 Ambulatory [place] 05/27/2022 Amb[facility] [place] 05/25/2022 Ambulatory Unilateral prima ry osteoarthritis, left hip [place] 05/24/2022 Ambulatory [place] 05/20/2022 Ambulatory Unilateral prima ry osteoarthritis, left hip [place] 05/18/2022 Ambulatory Unilateral prima ry osteoarthritis, left hip [place] 05/13/2022 Care Team Organization Name Specialty Phone Email Start Date End [facility] [place] KAYA Primary Care 09/17/2024 [facility] Termed, PROVIDER Primary Care 06/03/202406/02 [facility] CALEB KIRKPATRICK Primary Care 05/13/202212/31 [facility] CALEB KIRKPATRICK Primary Care 05/13/202205/02 [facility] Termed, PROVIDER Primary Care 03/09/202206/02
--- OUTSIDE RECORDS SUMMARY | 2025-01-30 10:56 | XMS_ITS | Clinical Summary ---
Author Organization [facility] Address [address] [place] [address] Phone Care Team Providers Care Lasting Floorworker Name Role Phone Jennifer Padron Primary Care Provider [phone] Allergies No known active allergies Medications lifitegrast (Xiidra) 5 % dropperette apply to the eye. Active metoprolol succinate (TOPROL-XL) 25 mg 24 hr tablet Take 1 Tablet by mouth daily. 12/14/19 24 Active omeprazole (PriLOSEC) [address] capsule Take 20 mg by mouth daily. Active traZODone (DESYREL) 100 mg tablet Take 100 mg by mouth at bedtime. Active multivitamin (multivitamin with folic acid) tablet Take 1 tablet by mouth 1 (one) time each day. Active LORazepam (ATIVAN) 0.5 mg tablet 07/14/19 16 Active flecainide (TAMBOCOR) 100 mg tablet TAKE ONE TABLET BY MOUTH TWICE DAILY.IC FOR TAMBOCOR 180 tablet 3 01/09/20 25 Active tirzepatide, weight loss, (Zepbound) 10 mg/0.5 mL injectionIndica tions:Class 1 obesity due to excess calories with serious comorbidity and body mass index (BMI) of 32.0 to 32.9 in adult Inject 0.5 mL (10 mg total) under the skin every 7 (seven) days. 2 mL 1 01/26/20 25 03/26/ 025 Active flecainide (TAMBOCOR) 100 mg tablet TAKE ONE TABLET BY MOUTH TWICE DAILY.IC FOR TAMBOCOR 180 tablet 10/05/19 25 025 Discontinued tirzepatide, weight loss, (Zepbound) 10 mg/0.5 mL injection Inject 0.5 mL (10 mg total) under the skin every 7 (seven) days. 2 mL 12/12/19 25 025 Active Problems Problem Noted Date Diagnosed Date Depression 07/30/2024 CARMELO (generalized anxiety disorder) 07/30/2024 Primary insomnia 11/22/2023 Anxiety 11/22/2023 Hypertension 08/09/2023 Overview (05/23/2024): Whitecoat hypertension Last Assessment & Plan: Appears to be whitecoat hypertension. She will monitor her blood pressure at home, let me know if there is any elevated readings consistently, and follow a low- sodium diet. Obstructive sleep apnea syndrome 06/12/2023 Primary osteoarthritis involving multiple joints 06/12/2023 Other hyperlipidemia 06/12/2023 Atherosclerosis of abdominal aorta (CMS/HCC V24) 06/12/2023 Overview (07/30/2024): Found incidentally on Ct scan Coronary artery disease invo lving [place] tribe coronary artery of [place] tribe heart 06/12/2023 Gastroesophageal reflux disease without esophagi tis 06/12/2023 First degree heart block 08/11/2021 Overview (05/23/2024): Last Assessment & Plan: Noted on ECG. We will continue to monitor. Paroxysmal atrial fibrillation (CMS/HCC V24, CMS /HCC V28) 02/17/2021 Overview (05/23/2024): Postoperative atrial fibrillation following lung surgery. He had a VATS procedure involving the left lower lobe. No recurrence. [id number] score of 2 for age and female gender Last Assessment & Plan: No recurrent atrial fibrillation outside the post operative. Continue to monitor for recurrence. Assessment & Plan (01/08/2025 2:14 PM EDT): Postoperative atrial fibrillation with no recurrence. No anticoagulation indicated. 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 Herrera. Complicated by air embolism. She had a cardiac catheterization at the time which showed no coronary disease. She had recurrent PVCs that were highly symptomatic and treated with flecainide with good result. Last Assessment & Plan: Continuing to do well with flecainide 100 mg twice daily. No evidence of underlying coronary disease and ECG shows no significant conduction disease or intolerance. I discussed the potential for repeat ablation but given the challenging region that the PVC was found and along with the excellent response to flecainide we will continue with medical therapy. Continue flecainide twice daily along with metoprolol. She should be at minimal risk of cardiovascular complications of her upcoming surgery and no additional testing will be required prior to proceeding Assessment & Plan (01/08/2025 2:14 PM EDT): Frequent PVCs treated with catheter ablation and now with flecainide working well. She show recent Kardia mobile tracings that show an occasional PVC but are otherwise quite benign. Continue with her current medications. Squamous cell skin cancer 09/15/2016 Overview (05/23/2024): Left yazdanism Right wrist- in situ - ED&C 04/2017 In situ - left preauricular and right cheek 10/2019 Encounters Date Type Department Care Team Description 01/24/2025 Telephone Bariatric Surgery - [place] [address] [facility] [address] [place] [address] Devante Vergara MD 01/08/2025 2:00 PM EDT Office Visit [facility] [address] [place] [address] Ottoniel Reece MD Paroxysmal atrial fibrillation (CMS/HCC V24, CMS/HCC V28) (Primary Dx); PVC (premature ventricular contraction) 12/14/2024 Telephone Gastroenterology - [address] [facility] [address] [facility] [address] [place] [address] Odin Garza MD 12/11/2024 Telephone Bariatric Surgery - [place] [address] [facility] [address] [place] [address] Devante Vergara MD from Last 3 Months Immunizations Immunization Administration Dates Next Due Moderna SARS-CoV-2 COVID-19, mRNA, LNP-S, preservative free 07/21/2020,06/23/2020 Surgical History Surgery Date Site/Laterality Comments OTHER SURGICAL HISTORY PROCEDURE: IN CRNEC EXC BRAIN TUMOR INFRATENTORIAL/POST FOSSA TOTAL KNEE ARTHROPLASTY Right PROCEDURE: IN ARTHRP KNE CONDYLE&PLATU MEDIAL&LAT COMPARTMENTS ANKLE SURGERY Right PROCEDURE: HISTORICAL ANKLE SURGERY; COMMENT: reconstruction BUNIONECTOMY Left PROCEDURE: BUNION SURGERY, SIMPLE REMOVAL Medical History Medical History Date Comments Squamous cell skin cancer 09/15/2016 DX:Squ amous cell skin cancer; COMMENT: Left yazdanism PVC (premature ventricular contraction) 09/21/2017 DX:PVC (premature ventricula r contraction) Basal cell carcinoma of skin 09/21/2017 DX: Basal cell carcinoma of skin; COMMENT: Right nasal ala - Mohs Family History Medical History Relation Name Comments Hypertension Brother 1 Hypertension Brother 2 Heart attack Father Relation Name Status Comments Brother 1 Brother 2 Alive Father Social History Tobacco Use Types Packs/Day Years [...] AM EDT Sexual Orientation Not on file Obstetrics History Last Filed Vital Signs Vital Sign Reading Time Taken Comments Blood Pressure 150/100 01/08/2025 1:50 PM EDT Pulse 70 01/08/2025 1:50 PM EDT Temperature 36.6 C (97.8 F) 2024 10:23 AM EDT Respiratory Rate - - Oxygen Saturation 99% 01/08/2025 1:50 PM EDT Inhaled Oxygen Concentration - - Weight 83 kg (183 lb) 01/08/2025 1:50 PM EDT Height 165.1 cm (5' 5 ) 01/08/2025 1:50 PM EDT Body Mass Index 30.45 01/08/2025 1:50 PM EDT Plan of Treatment Upcoming Encounters Date Type Department Care Team (Late st Contact Info) Description 03/06/2025 8:30 AM EST Appointment [facility] Endoscopy [address] [place] [phone] Odin Garza MD [address] [facility] [address] [place] [address] 04/04/2025 8:15 AM EST Office Visit Bariatric Surgery - [place] [address] [facility] [address] [place] [phone] Devante Vergara MD [address] [place] [address] Health Maintenance Due Date Last Done Comments Breast Cancer Screening 1955 Zoster Vaccines (1 of 2) 01/24/2014 11/29/2013 Falls Risk Assessment 04/04/2022 Osteoporosis Screening (Bone Density Screening) 04/04/2022 Social Influencers of Health Screening 04/04/2022 Medicare Annual Wellness Visit 10/30/2023 10/29/2022 Depression Screening 05/02/2024 COVID-19 Vaccine (8 - Moderna risk season) 2024 01/20/2024, 02/09/2023, 02/16/2022, Additional history exists Influenza Vaccine (#1) 2024 , 02/09/2023, 02/16/2022, Additional history exists Hypertension/CHF/CAD Annual BMP Blood Test 11/08/2025 11/08/2024, 11/23/2023, 11/23/2023, Additional history exists Cholesterol Screening (Lipid Panel) 11/16/2028 11/17/2023 DTaP,Tdap,and Td Vaccines (2 - Td or Tdap) 09/24/2029 09/25/2019 Colorectal Cancer Screening: Colonoscopy 12/17/2034 12/17/2024 Pneumococcal Vaccine: 50+ Years Completed 09/25/2020, 09/25/2019, 04/17/2013 Hepatitis C Screening Completed 11/17/2023 RSV Immunization Adult Patients Completed 03/14/2024 HIB Vaccines Aged Out No longer eligi ble based on patient's age to complete this topic HPV Vaccines Aged Out No longer eligi ble based on patient's age to complete this topic Hepatitis A Vaccines Aged Out No long er eligible based on patient's age to complete this topic Hepatitis B Vaccines Aged Out No long er eligible based on patient's age to complete this topic IPV Vaccines Aged Out No longer eligi ble based on patient's age to complete this topic MMR Vaccines Aged Out No longer eligi ble based on patient's age to complete this topic Meningococcal ACWY Vaccine Aged Out N o longer eligible based on patient's age to complete this topic Meningococcal B Vaccine Aged Out No l onger eligible based on patient's age to complete this topic RSV Immunization Patients Under 20 months Aged Out No longer eligible based on patient's age to complete this topic Varicella Vaccines Aged Out No longer eligible based on patient's age to complete this topic Procedures Procedure Name Priority Date/Time Associated Diagnosis Comments ECG 12-LEAD Routine 01/08/2025 2:15 PM EDT Paroxysmal atrial fibrillation (CMS/HCC V24, CMS/HCC V28) COLONOSCOPY Routine 12/17/2024 11:28 AM EDT BASIC METABOLIC PANEL Routine 11/08/2024 10:56 AM EDT HM HEPATITIS C SCREENING Routine 11/17/2023 LIPID PANEL Routine 11/17/2023 from Last 3 Months or Most Recently Relevant to Health Maintenance Results * ECG 12 lead (01/08/2025 2:15 PM EDT) Ventricular Rate ECG 70 BPM GEMUSE Atrial Rate 70 BPM GEMUSE P-R Interval 262 ms GEMUSE QRS Duration 102 ms GEMUSE Q-T Interval 416 ms GEMUSE QTc 449 ms GEMUSE P Wave [place] 74 degrees GEMUSE R [place] 73 degrees GEMUSE T [place] 66 degrees GEMUSE ECG Interpretation Sinus rhythm with 1st degree A-V block Otherwise normal ECG No previous ECGs available Confirmed by Claire REECE JOHN ([id number]) on 01/21/2025 8:26:32 AM GEMUSE 01/08/2025 1:57 PM EDT 01/21/2025 8:26 AM EDT us Ottoniel Reece MD ECG ORDERABLES Edited Result - Final GEMUSE * COLONOSCOPY (12/17/2024 11:28 AM EDT) Anatomical Region Laterality Modality Endoscopy Historical Provider GI~PROCEDURE ORDERABLES F inal Result * (ABNORMAL) Basic metabolic panel (11/08/2024 10:56 AM EDT) Glucose 94 70 - 99 mg/dL [facility] 1 Blood Urea Nitrogen (BUN) 18 8 - 27 mg/dL [facility] 1 Creatinine 1.18(H) 0.57 - 1.00 mg/dL [facility] 1 eGFR 49(L) >59 mL/min/1.7 3 [facility] 1 BUN/Creatinine Ratio 15 12 - 28 [facility] 1 Sodium 140 134 - 144 mmol/L [facility] 1 Potassium 4.3 3.5 - 5.2 mmol/L [facility] 1 Chloride 103 96 - 106 mmol/L [facility] 1 Carbon Dioxide 23 20 - 29 mmol/L [facility] 1 Calcium 9.7 8.7 - 10.3 mg/dL [facility] 1 11/08/2024 10:5 6 AM EDT 11/08/2024 Narrative [facility] 1 - 11/09/2024 1:06 AM EDT Performed at: 01 - [facility] [id number] Waistline Joiner Overlock: Nella Razo MD, Phone: [phone] us Darlene Marcelo RASPER MACHINE OPERATOR LAB BLOOD ORDERABLES Final R esult [facility] 1 * Hepatitis C Screening (11/17/2023) Hepatitis C Screening abstracted Historical Provider HEALTH MAINTENANCE Final Result * Lipid panel (11/17/2023) LDL/HDL Ratio 0 Comment:no interpretation, a bstracted Triglycerides 0 mg/dL Comment:no interpretation, a bstracted Cholesterol 0 mg/dL Comment:no interpretation, a bstracted HDL 0 mg/dL Comment:no interpretation, a bstracted LDL Cholesterol 0 mg/dL Comment:no interpretation, a bstracted Blood Venous blood specimen / Unknown Historical Provider LAB BLOOD ORDERABLES Erika l Result from Last 3 Months or Most Recently Relevant to Health Maintenance Insurance MEDICARE [facility] Care Teams Lasting Floorworker Relationship Specialty Start Date End Date Jennifer Padron PA [address] [place] [address] PCP - General Physician Before School Babysitter 01/07/25
--- OUTSIDE RECORDS SUMMARY | 2025-01-30 10:56 | XMS_ITS | Encounter Summary ---
Author Organization [facility] Address [address] [place] [address] Care Team Providers Care Sewing Machine Bobbin Winder Name Role Phone Jennifer Padron PA-C Primary Care Provi teo Lorri Blair MD Unavailable Ottoniel Reece MD Unavailable Unavailable Familia Koo MD Unavailable [phone] Steve Rangel MD Unavailable Unavailable Jignesh Valentine MD Unavailable [phone] Encounter Details Date Type Department Care Team (Late st Contact Info) Description 08/08/2024 Scanned Document [facility] Orthopedic Surgery, Scan Social History Tobacco Use Types Packs/Day Years Used Date Smoking Tobacco: Former Cigarettes 1 20 1 980 - 1999 Smokeless Tobacco: Never Alcohol [...] Description 06/13/2025 9:30 AM EST Office Visit [address] [place] [phone] Jennifer Padron PA-C [address] [place] [address] documented as of this encounter Visit Diagnoses Not on filedocumented in this encounter Care Teams Sewing Machine Bobbin Winder Relationship Specialty Start Date End Date Jennifer Padron AHMET Baca PCP - General Adult Health - PA/APNP/GARBAGE TRUCK HELPER/LICENSED PHYSICAL THERAPIST ASSISTANT 05/06/22 [place] [address] [place] [address] Referring Provider Urogynecology 11/22/23 Ottoniel Reece MD [address] [place] [address] Cardiology-Scan 11/22/23 Familia Koo MD [address] [place] [address] Pulmonary Disease 11/22/23 Steve Rangel MD [address] [place] [address] Referring Provider Gastroenterology 11/22/23 Jignesh Valentine MD [address] [place] [address] Physician Neurosurgery-Scan 11/22/23 Mj Friend Physician Endocrinology 10/31/23 [facility] Dermatology 10/31/23 documented as of this encounter
--- OUTSIDE RECORDS SUMMARY | 2025-01-30 10:56 | XMS_ITS | Encounter Summary ---
Author Organization [facility] Address [address] [place] [address] Care Team Providers Care Business Objects Analyst Name Role Phone Jennifer Padron PA-C Primary Care Provi teo Lorri Blair MD Unavailable Ottoniel Reece MD Unavailable Unavailable Familia Koo MD Unavailable [phone] Steve Rangel MD Unavailable Unavailable Jignesh Valentine MD Unavailable [phone] Encounter Details Date Type Department Care Team (Late st Contact Info) Description 01/24/2025 Scanned Document [facility] Orthopedic Surgery, Scan Social [...] Description 06/13/2025 9:30 AM EST Office Visit [address] [place] [phone] Jennifer Padron PA-C [address] [place] [address] documented as of this encounter Visit Diagnoses Not on filedocumented in this encounter Care Teams Business Objects Analyst Relationship Specialty Start Date End Date Jennifer Padron AHMET Baca PCP - General Adult Health - PA/APNP/HAND POLISHER/RAG WASHER 05/06/22 [place] [address] [place] [address] Referring Provider Urogynecology 11/22/23 Ottoniel Reece MD [address] [place] [address] Cardiology-Scan 11/22/23 Familia Koo MD [address] [place] [address] Pulmonary Disease 11/22/23 Steve Rangel MD [address] [place] [address] Referring Provider Gastroenterology 11/22/23 Jignesh Valentine MD [address] [place] [address] Physician Neurosurgery-Scan 11/22/23 Mj Friend Physician Endocrinology 10/31/23 [facility] Dermatology 10/31/23 documented as of this encounter
--- OUTSIDE RECORDS SUMMARY | 2025-01-30 10:56 | XMS_ITS | Encounter Summary ---
Author Organization [facility] Address [address] [place] [address] Care Team Providers Care Probation Counselor Name Role Phone Jennifer Padron PA-C Primary Care Provi teo Lorri Blair MD Unavailable Ottoniel Reece MD Unavailable Unavailable Familia Koo MD Unavailable Steve Rangel MD Unavailable Unavailable Jignesh Valentine MD Unavailable [phone] Encounter Details Date Type Department Care Team (Late st Contact Info) Description 11/08/2024 Scanned Document [facility] [address] [facility] [address] [place] [phone] Jennifer Padron PA-C [address] [place] [address] Social History Tobacco Use Types Packs/Day Years Used Date Smoking Tobacco: Former Cigarettes 1 20 - 1999 Smokeless Tobacco: Never Alcohol Use [...] Description 06/13/2025 9:30 AM EST Office Visit [facility] [address] [place] [phone] Jennifer Padron PA-C [address] [place] [address] documented as of this encounter Visit Diagnoses Not on filedocumented in this encounter Care Teams Probation Counselor Relationship Specialty Start Date End Date Jennifer Padron PA-C PCP - General Adult Health - PA/APVALENTE/STATION MECHANIC/NATIONAL ACCOUNTS SALES 05/06/22 Lorri Blair MD [address] [place] [address] Referring Provider Urogynecology 11/22/23 Ottoniel Reece MD [address] [place] [address] Cardiology-Scan 11/22/23 Familia Koo MD [address] [place] [address] Pulmonary Disease 11/22/23 Steve Rangel MD [address] [place] [address] Referring Provider Gastroenterology 11/22/23 Jignesh Valentine MD [address] [place] [address] [address] [place] [address] Physician Neurosurgery-Scan 11/22/23 Mj Friend Physician Endocrinology 10/31/23 [facility] Dermatology 10/31/23 documented as of this encounter
--- OUTSIDE RECORDS SUMMARY | 2025-01-30 10:56 | XMS_ITS | Encounter Summary ---
Author Organization [facility] Address [address] [place] [address] Care Team Providers Care Special Events Assistant Name Role Phone Jennifer Padron PA-C Primary Care Provi teo Lorri Blair MD Unavailable Ottoniel Reece MD Unavailable Unavailable Familia Koo MD Unavailable [phone] Steve Rangel MD Unavailable Unavailable Jignesh Valentine MD Unavailable [phone] Encounter Details Date Type Department Care Team (Late st Contact Info) Description 04/30/2024 Scanned Document [facility] [address] [place] [address] Endocrinology, Scan Social History Tobacco Use Types Packs/Day Years Used Date Smoking Tobacco: Former Cigarettes 1 20 1 980 - 2000 Smokeless Tobacco: Never Alcohol Use Standard Drinks/Week [...] Description 06/13/2025 9:30 AM EST Office Visit [address] [place] [phone] Jennifer Padron PA-C [address] [place] [address] documented as of this encounter Visit Diagnoses Not on filedocumented in this encounter Care Teams Special Events Assistant Relationship Specialty Start Date End Date Jennifer Padron PA-C PCP - General Adult Health - PA/APNP/EARLY CHILDHOOD ASSOCIATE TEACHER/RETURNED TELEPHONE EQUIPMENT APPRAISER 05/06/22 Lorri Blair MD [address] [place] [address] Referring Provider Urogynecology 11/22/23 [place] [address] [place] [address] Cardiology-Scan 11/22/23 Familia Koo MD [address] [place] [address] Pulmonary Disease 11/22/23 Steve Rangel MD [address] [place] [address] Referring Provider Gastroenterology 11/22/23 Jignesh Valentine MD [address] [place] [address] Physician Neurosurgery-Scan 11/22/23 Mj Friend Physician Endocrinology 10/31/23 [facility] Dermatology 10/31/23 documented as of this encounter
--- OUTSIDE RECORDS SUMMARY | 2025-01-30 10:56 | XMS_ITS | Encounter Summary ---
Author Organization [facility] Address [address] [place] [address] Care Team Providers Care Animal Feeder Name Role Phone Jennifer Padron PA-C Primary Care Provi teo Lorri Blair MD Unavailable Ottoniel Reece MD Unavailable Unavailable Familia Koo MD Unavailable [phone] Steve Rangel MD Unavailable Unavailable Jignesh Valentine MD Unavailable [phone] Encounter Details Date Type Department Care Team (Late st Contact Info) Description 01/09/2025 Scanned Document [address] [phone] Physical Therapy, Scan Social History Tobacco Use Types Packs/Day [...] Description 06/13/2025 9:30 AM EST Office Visit [address] [phone] Jennifer Padron PA-C [address] [place] [address] documented as of this encounter Visit Diagnoses Not on filedocumented in this encounter Care Teams Animal Feeder Relationship Specialty Start Date End Date Jennifer Padron PA-C PCP - General Adult Health - PA/APNP/FOUNDRY WORKER/SALT MINER 05/06/22 Lorri Blair MD [address] [place] [address] Referring Provider Urogynecology 11/22/23 Ottoniel Reece MD [address] [place] [address] Cardiology-Scan 11/22/23 Familia Koo MD [address] [place] [address] Pulmonary Disease 11/22/23 Steve Rangel MD [address] [place] [address] Referring Provider Gastroenterology 11/22/23 Jignesh Valentine MD [address] [place] [address] Physician Neurosurgery-Scan 11/22/23 jM Friend Physician Endocrinology 10/31/23 [facility] Dermatology 10/31/23 documented as of this encounter
--- OUTSIDE RECORDS SUMMARY | 2025-01-30 10:56 | XMS_ITS | Encounter Summary ---
Author Organization [facility] Address [address] [place] [address] Care Team Providers Care Pick Up Worker Name Role Phone Jennifer Padron PA-C Primary Care Provi teo Lorri Blair MD Unavailable Ottoniel Reece MD Unavailable Unavailable Familia Koo MD Unavailable Steve Rangel MD Unavailable Unavailable Jignesh Valentine MD Unavailable [phone] Encounter Details Date Type Department Care Team (Late st Contact Info) Description 08/08/2023 Scanned Document [address] [phone] Primary Care, Scan Social History Tobacco Use Types Packs/Day Years Used Date Smoking Tobacco: Former Cigarettes 1 20 1 980 - 2000 Smokeless Tobacco: Never Alcohol Use Standard Drinks/Week Comments Yes 0 (1 standard drink = 0.6 oz pur e alcohol) occasional Comments Unknown Sex and Gender Information Value [...] Description 06/13/2025 9:30 AM EST Office Visit [address] [phone] Jennifer Padron PA-C [address] [place] [address] documented as of this encounter Visit Diagnoses Not on filedocumented in this encounter Care Teams Pick Up Worker Relationship Specialty Start Date End Date Jennifer Padron PA-C PCP - General Adult Health - PA/APVALENTE/ROLLER OPERATOR/SHADE CLASSIFIER 05/06/22 Lorri Blair MD [address] [place] [address] Referring Provider Urogynecology 11/22/23 Ottoniel Reece MD [address] [place] [address] Cardiology-Scan 11/22/23 Familia Koo MD [address] [place] [address] Pulmonary Disease 11/22/23 Steve Rangel MD [address] [place] [address] Referring Provider Gastroenterology 11/22/23 Jignesh Valentine MD [address] [place] [address] Physician Neurosurgery-Scan 11/22/23 Mj Friend Physician Endocrinology 10/31/23 [facility] Dermatology 10/31/23 documented as of this encounter
--- OUTSIDE RECORDS SUMMARY | 2025-01-30 10:56 | XMS_ITS | Patient Health Record ---
Author Organization [facility] Address [address] [facility] [place] [address] Care Team Providers Care Memory Care Program Resident Name Role Phone Jennifer Lipscomb PA-C Primary Care Provider Carine vailable Black Viri Unavailable [phone] Donna Brannon Unavailable [phone] Gosia Rosario Unavailable [phone] Allergies No Known Allergies Results Component Value Reference Range Notes X ray : Foot, right 3V Reviewed date:08/23/2024 06:53:57 PM Interpretation:See Examination above Performing Lab: Notes/Report: See Examination above Reason For Referral No Information Medications Medication SIG (Take, Route, Frequency, Duration) Notes Start Date End Date Status Flecainide Acetate 100 MG 0.5 tablet Orally every 12 hrs Active Physical Therapy . . . 2-3x/week; Durat ion: 3-4 weeks 08/23/2024 Active Night Splint AFO - L1930 1 wear at rest; Duration: 30 days Not-Taking Medrol 4 MG as directed Orally daily; Duration: 6 days 08/23/2024 Not-Taki ng Metoprolol & Diet Manage Prod Active traZODone HCl 50 MG 1 tablet at bedtime as needed Orally Once a day Active Omeprazole 20 MG 1 capsule 1/2 to 1 h our before morning meal Orally Once a day Active Immunizations Vaccine Route Administration Date Status Comme nts Influenza Unknown 01/31/2024 Administered Social History Tobacco Use: Social History Observation Description Date Details (start date - stop date) Never Smoker NA - NA Tobacco use other than smoking: Question Answer Notes Are you an other tobacco user? No Tobacco Control (Standard) Question Answer Notes Tobacco use: Nonsmoker Additional Findings: Tobacco non-user Current no nsmoker AUDIT-C (Standard) Question Answer Notes Did you have a drink contain ing alcohol in the past year? Yes How often did you have a dri nk containing alcohol in the past year? 2 to 3 times a week (3 points) How many drinks did you have on a typical day when you were drinking in the past year? 1 or 2 drinks (0 point) How often did you have six o r more drinks on one occasion in the past year? Never (0 point) Points 3 Interpretation Positive Problems Problem Type SNOMED Code ICD Code Onset Dates Problem Status W/U Status Risk Notes Problem Plantar fasciitis of right foot (779442776273707 ) Plantar fasciitis of right foot (M72.2) Active confirmed Problem Interstitial myositis (68432649) Interstitial myositis of right foot (M60.171) Active confirmed Vital Signs Blood pressure diastolic 73 mm Hg 01/10/2025 Height 5ft 5in in 01/10/2025 Blood pressure systolic 120 mm Hg 01/10/2025 Weight 178 lbs 01/10/2025 BMI 29.62 kg/m2 01/10/2025 Encounters Encounter Location Date Provider Diagnosis [address] [address] 08/23/2024 Viri Black Pain in right foot M79.671 ; Plantar fasciitis of right foot M72.2 ; Interstitial myositis of right foot M60.171 ; Bursitis of right foot M77.51 ; Hypertrophy of bone, 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 and Peroneal tendinitis, right leg M76.[address] [address] 10/11/2024 Viri Black Pain in right foot M79.671 ; Plantar fasciitis of right foot M72.2 ; Interstitial myositis of right foot M60.171 ; Bursitis of right foot M77.51 ; Hypertrophy of bone, 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 ; Peroneal tendinitis, right leg M76.71 and Metatarsalgia of right foot M77.41 [address] [place] [address] 11/08/2024 Viri Black Plantar fasciitis of right foot M72.2 ; Stress fracture of right calcaneus, initial encounter M84.374A ; Pain in right foot M79.671 ; Interstitial myositis of right foot M60.171 ; Bursitis of right foot M77.51 ; Hypertrophy of bone, 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 ; Peroneal tendinitis, right leg M76.71 and Metatarsalgia of right foot M77.[address] [address] 01/10/2025 Viri Black Plantar fasciitis of right foot M72.2 ; Stress fracture of right calcaneus, initial encounter M84.374A ; Pain in right foot M79.671 ; Interstitial myositis of right foot M60.171 ; Bursitis of right foot M77.51 ; Hypertrophy of bone, 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 ; Peroneal tendinitis, right leg M76.71 and Metatarsalgia of right foot M77.[address] [address] 10/11/2024 Viri Black Stress fracture of right calcaneus M84.374A [address] [address] 10/12/2024 Viri Black [address] [address] 11/08/2024 Viri Black [address] [address] 01/10/2025 Viri Black Assessments Encounter Date Diagnosis (ICD Code) Assessment Notes Treatment Notes Treatment Clinical Notes Section Notes 08/23/2024 Pain in right foot (ICD-10 - M79.671) 08/23/2024 Plantar fasciitis of right foot (ICD-10 - M72.2) Patient Educated with: HEEL CORD STRETCHES.pdf (HEEL CORD STRETCHES.pdf) Patient Educated with: RICE THERAPY.pdf (RICE THERAPY.pdf) 10/11/2024 Pain in right foot (ICD-10 - M79.671) 10/11/2024 Plantar fasciitis of right foot (ICD-10 - M72.2) 10/11/2024 Stress fracture of right calcaneus (ICD-10 - M84.374A) 11/08/2024 Plantar fasciitis of right foot (ICD-10 - M72.2) 11/08/2024 Stress fracture of right calcaneus, initial encounter (ICD-10 - M84.374A) 01/10/2025 Plantar fasciitis of right foot (ICD-10 - M72.2) 01/10/2025 Stress fracture of right calcaneus, initial encounter (ICD-10 - M84.374A) 11/08/2024 Pain in right foot (ICD-10 - M79.671) 10/11/2024 Interstitial myositis of right foot (ICD-10 - M60.171) 08/23/2024 Interstitial myositis of right foot (ICD-10 - M60.171) 08/23/2024 Bursitis of right foot (ICD-10 - M77.51) 10/11/2024 Bursitis of right foot (ICD-10 - M77.51) 11/08/2024 Interstitial myositis of right foot (ICD-10 - M60.171) 01/10/2025 Pain in right foot (ICD-10 - M79.671) 11/08/2024 Bursitis of right foot (ICD-10 - M77.51) 01/10/2025 Interstitial myositis of right foot (ICD-10 - M60.171) 08/23/2024 Hypertrophy of bone, right ankle and foot (ICD-10 - M89.371) 10/11/2024 Hypertrophy of bone, right ankle and foot (ICD-10 - M89.371) 10/11/2024 Peroneal tendinitis, right leg (ICD-10 - M76.71) 08/23/2024 Peroneal tendinitis, right leg (ICD-10 - M76.71) 11/08/2024 Hypertrophy of bone, right ankle and foot (ICD-10 - M89.371) 01/10/2025 Bursitis of right foot (ICD-10 - M77.51) 01/10/2025 Hypertrophy of bone, right ankle and foot (ICD-10 - M89.371) 11/08/2024 Peroneal tendinitis, right leg (ICD-10 - M76.71) 10/11/2024 Metatarsalgia of right foot (ICD-10 - M77.41) 11/08/2024 Metatarsalgia of right foot (ICD-10 - M77.41) 01/10/2025 Peroneal tendinitis, right leg (ICD-10 - M76.71) 01/10/2025 Metatarsalgia of right foot (ICD-10 - M77.41) Plan Of Treatment Pending Test Test Name Order Date Tc99 3 phase Bone Scan 10/11/2024 Next Appt Details Provider Name:Viri Lynn Magnus , 03/05/2025 11:00:00 AM, [address] [facility], [place], [address], Insurance Providers Payer Name Payer Address Payer Phone Subscriber Number Group Number Insured Name Patient Relationship to Insured Coverage Start Date Coverage End Date Medicare National Govt HiLo Tickets [facility] [address] [facility] [place] [address] [id number] Kanchan Zimmerman Self - patient is the insured 9 [employer] [address] [place] [address] [id number] Kanchan Zimmerman Self - patient is the insured Medical (General) History Medical History History ICD Code Arthritis Back,Hip,and Knee pain Cancer reflux (GERD) Headaches/Migraines Osteoporosis Sjogren syndrome Measles Mumps Chicken pox Joint implants/screws Surgical History Surgery Date(Month/Year) Excision brain tumor 1972 R meniscus tear repair 1972 R bunionectomy 1998 basillar tip aneurysm stent placed the c oiled 2007 MCA aneurysm clipped 2008 C5/ C6 microdiscectomy posterior 2009 R breast biopsy 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
--- OUTSIDE RECORDS SUMMARY | 2025-01-30 10:56 | XMS_ITS | Encounter Summary ---
Author Organization [facility] Address [address] [place] [address] Care Team Providers Care Metal Stud Framer Name Role Phone Jennifer Padron PA-C Primary Care Provi teo Lorri Blair MD Unavailable Ottoniel Reece MD Unavailable Unavailable Familia Koo MD Unavailable [phone] Steve Rangel MD Unavailable Unavailable Jignesh Valentine MD Unavailable Encounter Details Date Type Department Care Team (Late st Contact Info) Description 11/23/2023 Scanned Document [facility] [address] [place] [address] Neurosurgery, Scan Social History Tobacco Use Types Packs/Day [...] Description 06/13/2025 9:30 AM EST Office Visit [address] [place] [address] Jennifer Padron PA-C [address] [place] [address] documented as of this encounter Visit Diagnoses Not on filedocumented in this encounter Care Teams Metal Stud Framer Relationship Specialty Start Date End Date Jennifer Padron PA-C PCP - General Adult Health - PA/APNP/BUS TROLLEY AND TAXI INSTRUCTOR/PEDIATRIC NURSE 05/06/22 Lorri Blair MD [address] [place] [address] Referring Provider Urogynecology 11/22/23 [place] [address] [place] [address] Cardiology-Scan 11/22/23 Familia Koo MD [address] [place] [address] Pulmonary Disease 11/22/23 Steve Rangel MD [address] [place] [address] Referring Provider Gastroenterology 11/22/23 Jignesh Valentine MD [address] [place] [address] Physician Neurosurgery-Scan 11/22/23 Mj Friend Physician Endocrinology 10/31/23 [facility] Dermatology 10/31/23 documented as of this encounter
--- OUTSIDE RECORDS SUMMARY | 2025-01-30 10:56 | XMS_ITS | Encounter Summary ---
Author Organization [facility] Address [address] [place] [address] Care Team Providers Care Child And Family Services Specialist Name Role Phone Jennifer Padron PA-C Primary Care Provi teo Lorri Blair MD Unavailable Ottoniel Reece MD Unavailable Unavailable Familia Koo MD Unavailable [phone] Steve Rangel MD Unavailable Unavailable Jignesh Valentine MD Unavailable [phone] Encounter Details Date Type Department Care Team (Late st Contact Info) Description 11/17/[address] [place] [address] Jennifer Padron PA-C [address] [place], [place] [id number] Social History Tobacco Use Types Packs/Day Years [...] PM EST documented as of this encounter Miscellaneous Notes * Telephone Encounter - Emmy Pope - 11/17/2023 3:15 PM EDT Spoke with [facility] if [facility] calls back - to tell them that we are NOT going to change the code and patient can either call her insurance or we can have her come in to discuss or not have the test done at this time, CAMERONI. * Telephone Encounter - Monica Magaña MA - 11/17/2023 9:13 AM EDT Corine ríos michael stated her insurance will not cover vitamin D using the diagnosis code currently listed. She is asking for an alternative. She stated a verbal is fine documented in this encounter Plan of Treatment Upcoming Encounters Date Type Department Care Team (Late st Contact Info) Description 06/13/2025 9:30 AM EST Office Visit [address] [place] [address] Jennifer Padron PA-C [address] [place] [address] documented as of this encounter Visit Diagnoses Not on filedocumented in this encounter Care Teams Child And Family Services Specialist Relationship Specialty Start Date End Date Jennifer Padron PA-C PCP - General Adult Health - PA/WILBERT/DIRECTOR OF ENGINEERING/MECHANICAL STRIPER 05/06/22 Lorri Blair MD [address] [place] [address] Referring Provider Urogynecology 11/22/23 Ottoniel Reece MD [address] [place] [address] Cardiology-Scan 11/22/23 Familia Koo MD [address] [place] [address] Pulmonary Disease 11/22/23 Steve Rangel MD [address] [place] [address] Referring Provider Gastroenterology 11/22/23 Jignesh Valentine MD [address] [place] [address] Physician Neurosurgery-Scan 11/22/23 Mj Friend Physician Endocrinology 10/31/23 [facility] Dermatology 10/31/23 documented as of this encounter
--- OUTSIDE RECORDS SUMMARY | 2025-01-30 10:56 | XMS_ITS | Encounter Summary ---
Author Organization [facility] Address [address] [place], [place] [id number] Care Team Providers Care Court Recording Monitor Name Role Phone Jennifer Padron PA-C Primary Care Provi teo Lorri Blair MD Unavailable Ottoniel Reece MD Unavailable Unavailable Familia Koo MD Unavailable [phone] Steve Rangel MD Unavailable Unavailable Jignesh Valentine MD Unavailable [phone] Encounter Details Date Type Department Care Team (Late st Contact Info) Description 01/09/2025 Scanned Document [address] [address] Neurology, Scan Social History Tobacco Use Types Packs/Day [...] Description 06/13/2025 9:30 AM EST Office Visit [address] [address] Jennifer Padron PA-C [address] [place] [address] documented as of this encounter Visit Diagnoses Not on filedocumented in this encounter Care Teams Court Recording Monitor Relationship Specialty Start Date End Date Jennifer Padron PA-C PCP - General Adult Health - PA/APNP/ROOF PAINTER/CELL GENETICIST 05/06/22 Lorri Blair MD [address] [place] [address] Referring Provider Urogynecology 11/22/23 Ottoniel Reece MD [address] [place] [address] Cardiology-Scan 11/22/23 Familia Koo MD [address] [place] [address] Pulmonary Disease 11/22/23 Steve Rangel MD [address] [place] [address] Referring Provider Gastroenterology 11/22/23 Jignesh Valentine MD [address] [place] [address] Physician Neurosurgery-Scan 11/22/23 Mj Freind Physician Endocrinology 10/31/23 [facility] Dermatology 10/31/23 documented as of this encounter
--- OUTSIDE RECORDS SUMMARY | 2025-01-30 10:56 | XMS_ITS | Encounter Summary ---
Author Organization [facility] Address [address] [place] [address] Care Team Providers Care Planning Advisor Name Role Phone Jennifer Padron PA-C Primary Care Provi teo Lorri Blair MD Unavailable Ottoniel Reece MD Unavailable Unavailable Familia Koo MD Unavailable [phone] Steve Rangel MD Unavailable Unavailable Jignesh Valentine MD Unavailable [phone] Encounter Details Date Type Department Care Team (Late st Contact Info) Description 09/10/2024 Scanned Document [facility] [address] [place] [address] Orthopedic Surgery, Scan Social History Tobacco Use [...] Description 06/13/2025 9:30 AM EST Office Visit [address] [place] [address] Jennifer Padron PA-C [address] [place] [address] documented as of this encounter Visit Diagnoses Not on filedocumented in this encounter Care Teams Planning Advisor Relationship Specialty Start Date End Date Jennifer Padron PA-C PCP - General Adult Health - PA/APNP/COSMETIC CONSULTANT/ALUMINUM CAN COLLECTOR 05/06/22 Lorri Blair MD [address] [place] [address] Referring Provider Urogynecology 11/22/23 Ottoniel Reece MD [address] [place] [address] Cardiology-Scan 11/22/23 Familia Koo MD [address] [place] [address] Pulmonary Disease 11/22/23 Steve Rangel MD [address] [place] [address] Referring Provider Gastroenterology 11/22/23 Jignesh Valentine MD [address] [place] [address] Physician Neurosurgery-Scan 11/22/23 Mj Friend Physician Endocrinology 10/31/23 [facility] Dermatology 10/31/23 documented as of this encounter
--- OUTSIDE RECORDS SUMMARY | 2025-01-30 10:56 | XMS_ITS | Clinical Summary ---
Author Organization [facility] Address [address] [place] [address] Care Team Providers Care Bottle Sorter Name Role Phone Jennifer Padron PA-C Primary Care Provi teo Lorri Blair MD Unavailable Ottoniel Reece MD Unavailable Unavailable Familia Koo MD Unavailable [phone] Steve Rangel MD Unavailable Unavailable Jignesh Valentine MD Unavailable [phone] Allergies No known active allergies Medications flecainide (TAMBOCOR) 100 MG tablet Take 1 tablet (100 mg total) by mouth 2 (two) times a day. 2 Active metoPROLOL SUCCINATE (TOPROL-XL) 25 MG 24 hr tablet Take 1 tablet (25 mg total) by mouth daily. 2 Active multivitamin Tab tablet Take 1 tablet by mouth daily. Active OMEprazole (PriLOSEC) 20 MG capsuleIndicatio ns:Gastroesophag eal reflux disease without esophagitis TAKE ONE CAPSULE BY MOUTH ONCE DAILY (IC PRILOSEC) 90 capsule 5 Active traZODone (DESYREL) 50 MG tabletIndication s:Primary insomnia TAKE 2 TABLETS (100 MG TOTAL) BY MOUTH NIGHTLY 180 tablet 5 Active LORazepam (ATIVAN) 0.5 MG tabletIndication s:Anxiety Take 1 tablet (0.5 mg total) by mouth 2 (two) times a day as needed for anxiety. 30 tablet 5 Active Zepbound 10 MG/0.5ML pen-injector Inject 1 Pen (10 mg total) under the skin once a week. 01/11/20 25 Active Problems Problem Noted Date Diagnosed Date History of tobacco abuse 11/22/2023 Assessment & Plan (12/11/2024 4:13 PM EDT): Follows with pulmonary. Up-to-date with imaging. CT scan is done at [facility]. Patient was offered treatment for the Mycobacterium however she has declined this. Asthma has been stable. Patient is not on any inhalers. We will get the notes from pulmonary. Primary insomnia 11/22/2023 Assessment & Plan (12/11/2024 4:13 PM EDT): Patient's depression and anxiety situational. Patient's is an alcoholic. She is not currently taking anything daily other than trazodone to help with sleep. She has lorazepam that she takes as needed for anxiety. She is coping fairly well. She is a good support system. CSA filled out. Anxiety 11/22/2023 Assessment & Plan (12/11/2024 4:13 PM EDT): Patient's depression and anxiety situational. Patient's is an alcoholic. She is not currently taking anything daily other than trazodone to help with sleep. She has lorazepam that she takes as needed for anxiety. She is coping fairly well. She is a good support system. CSA filled out. History of malignant melanoma 06/12/2023 Overview (06/12/2023): Right thigh Assessment & Plan (12/11/2024 4:13 PM EDT): Wide excision excision right thigh. Follows with dermatology every 6 months. Patient has 2 basal cell carcinomas 1 on the left nares and 1 on the right lower extremity. Scheduled for Mohs procedures in December and April. Obstructive sleep apnea syndrome 06/12/2023 06/12/2023 Assessment & Plan (12/11/2024 4:13 PM EDT): Patient unable to tolerate CPAP. Although with a 20 pound weight loss she states her sleep is better. Female cystocele 06/12/2023 06/12/2023 Atherosclerosis of abdominal aorta 06/12/2023 Overview (06/12/2023): Found incidentally on Ct scan Assessment & Plan (12/11/2024 1:42 PM EDT): Patient had nuclear stress test done in January 2023 with possible small area of anterior ischemia and focal proximal LAD calcification on attenuation CT. Patient had a coronary CTA for further evaluation back in May 2023 at [facility]. It did show minimal stenosis in the distal left main due to a short segment of calcified plaque. Minimal stenosis in the ostial RCA due to a short segment of mixed plaque. Scattered short segments of calcified atherosclerotic plaque in the descending aorta. Statins were not recommended. Found incidentally on imaging. Patient has declined statin. Recurrent major depressive disorder, in partial remission 06/12/2023 Assessment & Plan (12/11/2024 4:13 PM EDT): Patient's depression and anxiety situational. Patient's is an alcoholic. She is not currently taking anything daily other than trazodone to help with sleep. She has lorazepam that she takes as needed for anxiety. She is coping fairly well. She is a good support system. CSA filled out. Gastroesophageal reflux disease without esophagi tis 06/12/2023 Assessment & Plan (12/11/2024 4:13 PM EDT): Compliant with omeprazole 20 mg. History of cerebral aneurysm 06/12/2023 Assessment & Plan (12/11/2024 4:13 PM EDT): Status post left pterional craniotomy for distal left MCA aneurysm clipping and stent mediated coil embolization of a basilar tip aneurysm. Follows with Dr. Galdamez out in [place]. Patient's last CTA of the head was out in [place] in 2023 which showed: CTA Head: * Stable post surgical changes related to previous left MCA bifurcation aneurysm clipping. Streaky metallic artifact related to the aneurysm clip obscures adjacent structures. The aneurysm coil pack is not well visualized. There is no gross evidence of recurrence. * Stable post procedural changes related to prior stent mediated coil embolization of a basilar tip aneurysm, without residual contrast enhancement of the aneurysm sac or evidence of in-stent stenosis. * Patent intracranial arterial vasculature without high-grade stenosis, large vessel occlusion or new aneurysm. * Contour irregularity of the bilateral high cervical ICA may reflect underlying fibromuscular dysplasia. Will repeat imaging as above. Patient would like to go to [facility] in [place]. This is the first time that I have seen this report. There is some question whether there is some underlying fibromuscular dysplasia. I will refer patient to vascular at [facility] defer for workup. Other hyperlipidemia 06/12/2023 Assessment & Plan (12/11/2024 4:13 PM EDT): Last fasting lipid profile showed an LDL of 182 with an HDL of 72. Has refused statins. With 20 pound weight loss and diet modifications, will check fasting lipid profile. Primary hypertension 06/12/2023 Assessment & Plan (12/11/2024 4:13 PM EDT): Compliant with blood pressure medications. Blood pressures have been good. Migraine with aura 06/12/2023 Mild intermittent asthma without complication Assessment & Plan (12/11/2024 4:13 PM EDT): Follows with pulmonary. Up-to-date with imaging. CT scan is done at [facility]. Patient was offered treatment for the Mycobacterium however she has declined this. Asthma has been stable. Patient is not on any inhalers. We will get the notes from pulmonary. 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 Up-to-date with imaging. CT scan is done at [facility]. Patient was offered treatment for the Mycobacterium however she has declined this. Asthma has been stable. Patient is not on any inhalers. We will get the notes from pulmonary. Primary osteoarthritis involving multiple joints 06/12/2023 Assessment & Plan (12/11/2024 4:13 PM EDT): Takes ibuprofen and Tylenol as needed. Age-related osteoporosis wit hout current pathological fracture 06/12/2023 Assessment & Plan (12/11/2024 4:13 PM EDT): Last bone density was December 2022. It showed osteoporosis in the right femoral neck and osteopenia in the spine and hip. She does follow with endocrinology. Vitamin D supplements were recommended. She states endocrinology is not recommending any treatment at this time. They have ordered her bone density. Infrarenal abdominal aortic aneurysm (AAA) witho ut rupture 06/12/2023 Overview (12/08/2023): 2.5cm found incidentally- repeat CT in 2023 showed no aneurysm Assessment & Plan (12/11/2024 4:13 PM EDT): Found incidentally. Measuring 2.[address] of the abdomen and pelvis back in October 2023. The abdominal aorta is not aneurysmal. The distal aorta measures 2.3 cm. There was moderate to severe plaque along the distal aorta. No further follow-up recommended. Coronary artery disease invo lving klamath coronary artery of klamath heart 06/12/2023 Assessment & Plan (12/11/2024 1:42 PM EDT): Patient had nuclear stress test done in January 2023 with possible small area of anterior ischemia and focal proximal LAD calcification on attenuation CT. Patient had a coronary CTA for further evaluation back in May 2023 at [facility]. It did show minimal stenosis in the distal left main due to a short segment of calcified plaque. Minimal stenosis in the ostial RCA due to a short segment of mixed plaque. Scattered short segments of calcified atherosclerotic plaque in the descending aorta. Statins were not recommended. Found incidentally on imaging. Patient has declined statin. First degree heart block 08/11/2021 024 Overview (06/12/2023): Last Assessment & Plan: Noted on ECG. We will continue to monitor. Paroxysmal atrial fibrillation 02/17/2021 0 06/12/2023 Overview (06/12/2023): Last Assessment & Plan: Patient did have an episode of atrial fibrillation in the past. 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 Did have some palpitations and she showed me her apple watch tracings I did not see a episodes of A. fib. She does take the water off at bedtime. I did explain to her that people have asymptomatic atrial fibrillation. I discussed her CHADS2 Vasc score with her which is 2. I discussed either going on aspirin or going on anticoagulant. I discussed the reasons for this. I discussed the pros and cons of each. At this time she does not want to. I did explain to her if she changes her mind to let me know. I also did speak to her about a Kardia as the tracings may be a little bit better quality. Assessment & Plan (12/11/2024 4:13 PM EDT): Occurred postoperatively following lung surgery. Has not had any further recurrence. Patient has a [id number] score of 2. Patient declines any type of anticoagulation. Has not had any further issues. With regards to PVCs. Patient had an ablation in 2012 at the [facility]. They are symptomatic. She experiences lightheadedness with them and some shortness of breath. She follows with cardiology and is treated with flecainide and metoprolol.'s have been stable. Lung nodule 10/18/2018 06/12/2023 Overview (06/12/2023): Added automatically from request for surgery [id number] Assessment & Plan (12/11/2024 4:13 PM EDT): Follows with pulmonary. Up-to-date with imaging. CT scan is done at [facility]. Patient was offered treatment for the Mycobacterium however she has declined this. Asthma has been stable. Patient is not on any inhalers. We will get the notes from pulmonary. Basal cell carcinoma of skin 09/21/201703/2024 Overview (06/12/2023): Right nasal ala - Mohs Superficial type left chest 10/2019 Assessment & Plan (12/11/2024 4:13 PM EDT): Wide excision excision right thigh. Follows with dermatology every 6 months. Patient has 2 basal cell carcinomas 1 on the left nares and 1 on the right lower extremity. Scheduled for Mohs procedures in December and April. Resolved Problems Problem Noted Date Diagnosed Date Resolved Date PVC (premature ventricular contraction) 09/21/2017 0 06/12/2023 07/26/2023 Overview (06/12/2023): Last Assessment & Plan: As I noted she is on 100 mg of flecainide twice a day. She has not had a stress test for some time. I am going to schedule this as well as an echocardiogram. Encounters Date Type Department Care Team Description 01/28/2025 Scanned Document [facility] OPTHALMOLOGY SCAN Ophthalmolog y, Scan 01/24/2025 Scanned Document [facility] ORTHO SURGERY SCAN Orthopedic Surgery, Scan 01/18/[address] [phone] Jennifer Padron PA-C 01/11/2025 Orders Only [facility] [address] [place] [address] Primary Care, Scan 01/09/2025 Scanned Document [facility] [address] [place] [address] Neurology, Scan 01/09/2025 Scanned Document [facility] [address] [place] [address] Physical Therapy, Scan 12/19/[address] [place] [phone] Jennifer Padron PA-C 12/11/2024 1:30 PM EDT Office Visit [address] [phone] Jennifer Padron PA-C Encounter for annual wellness exam in Medicare patient (Primary Dx); Colon cancer screening; History of malignant melanoma; Basal cell carcinoma (BCC), unspecified site; Obstructive sleep apnea syndrome; Paroxysmal atrial fibrillation (HCC); PVC's (premature ventricular contractions); Lung nodule; History of tobacco abuse; Mycobacterium avium complex (HCC); Mild intermittent asthma without complication ; Recurrent major depressive disorder, in partial remission ; Anxiety; Primary insomnia; Coronary artery disease involving klamath coronary artery of klamath heart without angina pectoris ; Atherosclerosis of abdominal aorta; Age-related osteoporosis without current pathological fracture ; History of cerebral aneurysm; Gastroesophageal reflux disease without esophagitis; Other hyperlipidemia ; Primary hypertension ; Primary osteoarthritis involving multiple joints; Infrarenal abdominal aortic aneurysm (AAA) without rupture; Obesity (BMI 30-39.9); Migraine with visual aura ; Vertigo; Fibromuscular dysplasia of carotid artery; Migraine with aura and without status migrainosus, not intractable 12/11/[address] [phone] Jennifer Padron PA-C 12/11/[address] [phone] Jennifer Padron PA-C 12/11/[address] [phone] Jennifer Padron PA-C 12/11/2024 Travel 12/10/[address] [phone] Jennifer Padron PA-C Primary insomnia 11/13/[address] [phone] Jennifer Padron PA-C Gastroesophageal reflux disease without esophagitis 11/08/2024 Scanned Document [facility] [address] [facility] [address] [place] [phone] Jennifer Padron PA-C 10/31/2024 Scanned Document [facility] [address] [place] [phone] Primary Care, Scan from Last 3 Months Immunizations Immunization Administration Dates Next Due Covid-19 Vaccine, Unspecified 11/23/2021, 021 Covid-19 mRNA Primary Series Vaccine - Moderna 0.5 mL Full Dose 07/21/2020,06/23/2020 Pneumococcal Conjugate 13-Valent 09/25/2019 Pneumococcal Polysaccharide 23-Valent 09/25/2020 ,04/17/2013 Tdap 09/25/2019 Zoster Vaccine Live/Attenuated (Zostavax) 2013 Family History Medical History Relation Name Comments Esophageal cancer Brother Hypertension Brother Colon polyps Father Coronary artery disease Father Throat cancer Father Lung cancer Mother Relation Name Status Comments Brother Father Mother Social History Tobacco Use Types Packs/Day Years Used Date Smoking Tobacco: Former Cigarettes 1 20 1 980 - 1999 Smokeless Tobacco: Never Tobacco Cessation:Counseling Given: Not Answered Alcohol Use Standard Drinks/Week Comments Yes 0 [...] not to disclose 2022 5:04 PM EST Last Filed Vital Signs Vital Sign Reading Time Taken Comments Blood Pressure 110/80 12/11/2024 1:17 PM EDT Pulse 71 12/11/2024 1:17 PM EDT Temperature 36.1 C (97 F) 12/11/2024 1:17 PM EDT Respiratory Rate 17 12/11/2024 1:17 PM EDT Oxygen Saturation 96% 12/11/2024 1:17 PM EDT Inhaled Oxygen Concentration - - Weight 84.3 kg (185 lb 12.8 oz) 12/11/2024 1:17 PM EDT Height 162.6 cm (5' 4 ) 12/11/2024 1:17 PM EDT Body Mass Index 31.89 12/11/2024 1:17 PM EDT Plan of Treatment Upcoming Encounters Date Type Department Care Team (Late st Contact Info) Description 06/13/2025 9:30 AM EST Office Visit [facility] [address] [facility] [address] [place] [phone] Jennifer Padron PA-C [address] [place] [address] Health Maintenance Due Date Last Done Comments Physical 10/02/1971 Zoster (Shingles) Vaccine (2 of 3) 01/24/2014 11/29/2013 DXA Bone Density (Females,Ages 65 and older) 05/02/2024 05/02/2022 (Previously Completed) Colonoscopy 10/21/2024 10/22/2019 (Prev iously Completed) Influenza Vaccine 11/30/2024 Mammogram 09/03/2026 09/03/2024, 04/06/2023 (Previously Completed) DTaP/Tdap/Td Vaccines (2 - Td or Tdap) 09/24/2029 09/25/2019 Pneumococcal Vaccines 50+ Completed 2020, 09/25/2019, 04/17/2013 COVID-19 Vaccine Discontinued 11/23/2021, 03/2021, 07/21/2020, Additional history exists Advance Care Planning Completed 01/05/2024 Hepatitis B Vaccines Aged Out No long er eligible based on patient's age to complete this topic Hepatitis C Virus Screening Discontinued RSV Vaccine 60 years and older and Patients Discontinued Procedures Procedure Name Priority Date/Time Associated Diagnosis Comments CT SCAN EXTERNAL RESULT Routine 01/09/2025 11:44 AM EDT IMAGING BREAST/BX/MAMMO Routine 09/03/2024 7:05 AM EDT from Last 3 Months or Most Recently Relevant to Health Maintenance Results * CT Scan External Result (01/09/2025 11:44 AM EDT) Anatomical Region Laterality Modality Computed Tomogra phy us Scan Primary Care IMG CT ORDERABLES Edited Resul t - Final * Imaging Breast/Bx/Mammo Result (09/03/2024 7:05 AM EDT) Anatomical Region Laterality Modality Other us Scan Obstetrics And Gynecology IMG LEGACY PROCED URES Edited Result - Final from Last 3 Months or Most Recently Relevant to Health Maintenance Insurance [place] [id number] MEDICARE PART A & B Advance Directives Documents on File Type Date Recorded Patient Windows Consultant Expl anation Advance Directive-Scan 01/05/2024 Healt thcare Proxy- 11/22/2023 Care Teams Bottle Sorter Relationship Specialty Start Date End Date Jennifer Padron PA-C PCP - General Adult Health - PA/APNP/SHEET ROCK NAILER/INDUSTRIAL ECONOMIST 05/06/22 Lorri Blair MD [address] [place] [address] Referring Provider Urogynecology 11/22/23 Ottoniel Reece MD [address] [place] [address] Cardiology-Scan 11/22/23 Familia Koo MD [address] [place] [address] Pulmonary Disease 11/22/23 Steve Rangel MD [address] [place] [address] Referring Provider Gastroenterology 11/22/23 Jignesh Valentine MD [address] [place] [address] Physician Neurosurgery-Scan 11/22/23 Mj Friend Physician Endocrinology 10/31/23 Anita Cristobal [facility] Dermatology 10/31/23
--- OUTSIDE RECORDS SUMMARY | 2025-01-30 10:56 | XMS_ITS | Encounter Summary ---
Author Organization [facility] Address [address] [place] [address] Care Team Providers Care Medical And Health Services Manager Name Role Phone Jennifer Padron PA-C Primary Care Provi teo Lorri Blair MD Unavailable Ottoniel Reece MD Unavailable Unavailable Familia Koo MD Unavailable [phone] Steve Rangel MD Unavailable Unavailable Jignesh Valentine MD Unavailable [phone] Encounter Details Date Type Department Care Team (Late st Contact Info) Description 01/28/2025 Scanned Document [facility] OPTHALMOLOGY SCAN Ophthalmology, Scan Social History Tobacco Use Types Packs/Day [...] Description 06/13/2025 9:30 AM EST Office Visit [address] [place] [phone] Jennifer Padron PA-C [address] [place] [address] documented as of this encounter Visit Diagnoses Not on filedocumented in this encounter Care Teams Medical And Health Services Manager Relationship Specialty Start Date End Date Jennifer Padron PA-C PCP - General Adult Health - PA/APVALENTE/TANK CARPENTER/DISTRICT SALES REPRESENTATIVE 05/06/22 [place] [address] [place] [address] Referring Provider Urogynecology 11/22/23 Ottoniel Reece MD [address] [place] [address] Cardiology-Scan 11/22/23 Familia Koo MD [address] [place] [address] Pulmonary Disease 11/22/23 Steve Rangel MD [address] [place] [address] Referring Provider Gastroenterology 11/22/23 Jignesh Valentine MD [address] [place] [address] Physician Neurosurgery-Scan 11/22/23 Mj Friend Physician Endocrinology 10/31/23 Anita Cristobal [facility] Dermatology 10/31/23 documented as of this encounter
== END 2025-01-30 11:00 ==
PROVIDERS: PCP Physician Assistant Medical; Visit Provider Hospitalist
DX: R91.8 Other nonspecific abnormal finding of lung field (principal); J21.9 Acute bronchiolitis, unspecified; R59.9 Enlarged lymph nodes, unspecified; J41.0 Simple chronic bronchitis; R06.09 Other forms of dyspnea
CPT/HCPCS: 99214; G2211

== ENCOUNTER → 2025-01-30 09:53 | Outpatient (BNVA) | payer MEDICARE, SELFPAY | PROVIDERS: PCP Physician Assistant Medical; Visit Provider Hospitalist | DX: R91.8 Other nonspecific abnormal finding of lung field (principal); J21.9 Acute bronchiolitis, unspecified; R59.9 Enlarged lymph nodes, unspecified; J41.0 Simple chronic bronchitis; R06.09 Other forms of dyspnea; Z87.891 Personal history of nicotine dependence | CPT/HCPCS: 99212 ==

== ENCOUNTER 2025-02-28 07:58 | Outpatient (REF) | payer MEDICARE, SELFPAY ==
--- OUTSIDE RECORDS SUMMARY | 2024-08-21 04:30 | XMS_ITS ---
Author Organization [facility] Address [address] [place] [address] Care Team Providers Care Lathe Set Up Person Name Role Phone Jennifer Lipscomb PA-C Primary Care Provider Carine vailable Black, Viri Unavailable [phone] Donna Brannon Unavailable [phone] Allergies No Known Allergies REASON FOR VISIT Pcp-01/23 Medications Medication SIG (Take, Route, Frequency, Duration) Notes Start Date End Date Status Omeprazole 20 MG 1 capsule 1/2 to 1 h our before morning meal Orally Once a day 07/23/2024 Active Flecainide Acetate 100 MG 0.5 tablet Ora lly every 12 hrs Active Metoprolol & Diet Manage Prod Active traZODone HCl 50 MG 1 tablet at bedtime as needed Orally Once a day 07/23/2024 Active Social History Tobacco Use: Social History Observation Description Date Details (start date - stop date) Never Smoker NA - NA Tobacco use other than smoking: Question Answer Notes Are you an other tobacco user? No Tobacco Control (Standard) Question Answer Notes Tobacco use: Nonsmoker Vital Signs Height 5ft2.5in in 08/21/2024 Weight 200 lbs 08/21/2024 BMI 35.99 kg/m2 08/21/2024 Blood pressure systolic 125 mm Hg 08/22/19 25 Blood pressure diastolic 80 mm Hg 025 Encounters Encounter Location Date Provider Diagnosis [facility] [address] [place] [address] 08/21/2024 Donna Brannon Plan Of Treatment Next Appt Details Provider Name:Viri Agudelo , 03/05/2025 11:00:00 AM, [address], [place], [address], Progress Notes * Kanchan ZIMMERMAN MDOB:1955 (69 yo F)Acc No.[id number]:08/21/2024 Progress Notes Patient: Cate REED Kanchan Yvette Provider: Augustin Brannon DPM :1955 A ge:68 Y S ex:Female Date:08/21/2024 [facility] Pcp:Jennifer Lipscomb PA-C Subjective: * Chief Complaints: * 1 . Pcp-01/23. * ROS: G eneral/Constitutional: Nausea d enies. V omiting d enies. H erlin Thirst d enies. L oss appetite d enies. C hills d enies. F atigue d enies.?Fever d enies. N ight Sweats a dmits. U nexplained weight loss d enies. U nexplained weight gain d enies. H EENTM: Dentures d enies. D izziness d enies. G lasses/contacts a dmits. R etinopathy d enies. B lurred/double vision d enies. T MJ?denies. D ischarge/drainage d enies. I mplants d enies. S ore throat d enies. D ental implants d enies. H juan jose of hearing d enies. D ifficulty chewing/swallowing/speaking d enies. N ose bleeds d enies. S ore mouth d enies. ? R espiratory: On Oxygen d enies. P neumonia/pleurisy d enies.?Bronchitis a dmits. E mphysema d enies. C oughing d enies. C ough blood?denies. S hortness of breath a dmits. W heezing d enies. C ardiovascular: Pacemaker d enies. M RESEARCH ANALYST d enies. W PW d enies. C HF d enies. H eart attack d enies. S eptal defect d enies. R apid beat d enies. C hest pain d enies. A trial Fib. d enies. M urmur/Palpitations a dmits. G astrointestinal: Hemorrhoids d enies. S tomach/Abdominal pain d enies. D ark blood stool d enies. I rritable bowel d enies. C onstipation d enies. D iarrhea d enies. H ematology: Swelling d enies. C lots d enies. V aricose Veins a dmits. B ruising a dmits. B leeding problem d enies. G enitourinary: Blood urine d enies. F requent/Painfu/urination/bladder control d enies. K idney stones d enies. I nfection (UTI) d enies. N ephropathy d enies. s ex trans dis (STD) d enies. P rostate d enies. M usculoskeletal: Hammertoes d enies. B unions a dmits. B ack Pain d enies. M uscle Cramps/ Resting d enies. M uscle cramps / walking d enies.?Generalized aches and pains a dmits. W eakness d enies. I nteg.: Berger d enies. S cars d enies. C orns/calluses?denies. I ngrown nails d enies. P ainful nails d enies. O pen Sores d enies. R ashes d enies. N eurologic: Difficulty sleeping d enies. B rain disorder d enies. N umbness d enies. B alance trouble a dmits. C onfusion d enies. F ainting/blackouts d enies. T ingling d enies. T remors d enies. * Medical History: A rthritis, Back,Hip,and Knee pain, Cancer, reflux (GERD), Headaches/Migraines, Osteoporosis, Sjogren syndrome, Measles, Mumps, Chicken pox, Joint implants/screws. * Surgical History: E xcision brain tumor 1971, R meniscus tear repair 1972, R bunionectomy 1998, basillar tip aneurysm stent placed the coiled 2007, MCA aneurysm clipped 2008, C5/ C6 microdiscectomy posterior 2008, R breast biopsy preductal atypical hyperplasia 2000, Excision R thigh melanoma 2009, Cardiac ablation 2012, R ankle Brostrom reconstruction 2012, L lower lobe lung wedge resection 2012, R total knee replacement 2014, L flank incisional hernia repair 2015, Total hysterectomy with bladder repair 2016, L partial medial meniscus repair 2018, upper and lower lobe wedge resections 2018, [facility] excisions squamous cell facial area 2019, right rotator cuff repair 2020, L hip replacement with abductor muscle repair 04/01/2022, R knee replacement revision 08/10/2023. * Hospitalization/Major Diagno stic Procedure: D enies Past Hospitalization. * Family History: M other: , diagnosed with Other malignant neoplasm of unspecified site. F ather: , diagnosed with Other malignant neoplasm of unspecified site, Unspecified heart disease. Siblings: diagnosed with Other malignant neoplasm of unspecified site, Unspecified essential hypertension. * Social History: T obacco Use: T obacco use other than smoking A re you an other tobacco user? N o Tobacco Control (Standard) T obacco use: N onsmoker D rugs/Alcohol: D rugs H ave you used drugs other than those for medical reasons in the past 12 months? N o M iscellaneous: C affeine: yes, frequency: 2 a day. Children: yes, 3. Exercise: Reading,chrochet,knitting,weaving,rughooking,punch needle,water aerobics, biking. Marital status: . Occupation: Retired. * Medications: T aking Metoprolol & Diet Manage Prod , Taking traZODone HCl 50 MG Tablet 1 tablet at bedtime as needed Orally Once a day , Taking Omeprazole 20 MG Capsule Delayed Release 1 capsule 1/2 to 1 hour before morning meal Orally Once a day , Taking Flecainide Acetate 100 MG Tablet 0.5 tablet Orally every 12 hrs , Medication List reviewed and reconciled with the patient * Allergies: N .K.D.A. Objective: * Vitals: H t: 5ft2.5in, Wt:200, BMI:35.99, Shoe size: 9.5, BP:125/80mm Hg, Ht-cm: 158.75 cm, Wt-k.72 kg. Assessment: Plan: * Treatment: * Images: * The named appointment provid er may or may not be the originator of this progress note, and it is not deemed complete until electronically signed by the appointment provider. Sign off status: Pending * Provider: Augustin Brannon DPM Date: 0 08/21/2024 Generated for Tom edward/Dex/Malik on: 1 08:03 AM EDT
--- OUTSIDE RECORDS SUMMARY | 2024-09-06 04:30 | XMS_ITS ---
Author Organization [facility] Address [address] [place] [address] Care Team Providers Care Scrapper Name Role Phone Jennifer Lipscomb PA-C Primary Care Provider Carine vailable Viri Agudelo Unavailable [phone] Gosia Rosario [phone] REASON FOR VISIT Seen Sooner Encounters Encounter Location Date Provider Diagnosis [facility] [address] [place] [address] 09/06/2024 Gosia Rosario Plan Of Treatment Next Appt Details Provider Name:Viri Agudelo , 03/05/2025 11:00:00 AM, [address] [place], [address], Progress Notes * Kanchan ZIMMERMAN MDOB:1955 (69 yo F)Acc No.[id number]:09/06/2024 Progress Notes Patient: Cate Kanchan MCBRIDE Provider: Joe Rosario DPM :1955 A ge:68 Y S ex:Female Date:09/06/2024 [place] Pcp:Jennifer Lipscomb PA-C Subjective: * Chief Complaints: [...] 0 09/06/2024 Generated for Tom Cornejo/Malik on: 08:02 AM EDT
--- NOTE | 2025-02-28 08:01 | PFT_ITS ---
Flows: FEV1: 93 % of predicted at 2.08 L FVC: 103 % of predicted at 2.98 L FEV1/FVC: 70 % Bronchodilator response: Present Volumes: Total lung capacity: 96 % of predicted at 4.93 L Residual volume: 100 % of predicted at 2.06 L Slow vital capacity: 94 % of predicted at 2.87 L Expiratory reserve volume: 45 % of predicted at 0.34 L Diffusion capacity: Normal Impression: Reversible moderate obstructive ventilatory defect with positive bronchodilator response. Decreased expiratory reserve volume suggests extrathoracic restriction likely secondary to abdominal obesity. MTDD
--- OUTSIDE RECORDS SUMMARY | 2025-02-28 08:02 | XMS_ITS | Encounter Summary ---
Author Organization [facility] Address [address] [place] [address] Care Team Providers Care Transfer Car Operator Name Role Phone Jennifer Padron Primary Care Provider [phone] Reason for Visit * Reason Onset Date Comments Palpitations 02/26/2025 Encounter Details Date Type Department Care Team (Late st Contact Info) Description 02/26/2025 Telephone [facility] [address] [place] [phone] Ottoniel Reece MD [address] [place] [address] Dr Zambr[address] [place] [address] Social History Tobacco Use Types Packs/Day Years [...] as of this encounter Progress Notes * Aracely Martinez RN - 02/27/2025 10:27 AM EDT Spoke w/pt. Confirmed that she is indeed coming in tomorrow at 11:10. Overall pt states that she feels blah . HR today 88. Pt has not checked her BP as she's out getting her hair done. Pt expressed appreciation for everyone's help. Instructed pt to write down any questions/concerns to bring to appt tomorrow. * SAIMA Thomas - 02/27/2025 9:58 AM EDT Did you confirm that she is coming in on at 1110? * Aracely Martinez RN - 02/26/2025 4:43 PM EDT Spoke w/ pt and reiterated medication adjustments. Reviewed side effects and indications to seek EReval. Pt will contact insurance company about affordability of Eliquis. Pt verbalized understanding. * SAIMA Thomas - 02/26/2025 4:12 PM EDT Plse ask he rif she can come in 02/28 at 11: 10 * Luciano Bhardwaj - 02/26/2025 4:11 PM EDT Patient is returning call. * Aracely Martinez RN - 02/26/2025 4:04 PM EDT Left voicemail for patient to call back. * SAIMA Thomas - 02/26/2025 3:39 PM EDT Tanesha will call her to schedule her February 28 at 11:10 am * Darlene Marcelo NP - 02/26/2025 2:52 PM EDT First tracing February 18 diagnostic of atrial fibrillation, follow-up tracing on February 26 also atrial fibrillation, very likely that she has been in this for 8 days, minimally symptomatic, symptomsseem to correlate to periods of more rapid conduction. CHADVASc score -3 for age, gender and atherosclerotic disease, Eliquis 5 mg bid - samples provided until she can investigate cost of all the DOACs. Follow-up message sent to patient detailing our discussion Increase to Metoprolol succinate 25 bid for improved rate control Stop your ASA Access/triage please schedule for follow up, this week if possible - with MAX or with Nataly or the Musical Sneakers TAB - on day that he is in the office - to discuss AF management We briefly discussed ECV vs MARISELA cardioversion - she is minimally Just diagnosed with FMD AFSANEH SANTANA/CATHERINE * Aracely Martinez RN - 02/26/2025 11:59 AM EDT Spoke w/pt. Pt states for the past week feeling palpitations/flutters. It has not gone away at this point, prompting pt to call office. At time of call, vitals 123/78, HR: 73. Pt reported that HR fluctuates and at its worse HR was 150 bpm. She took a few tracings to see what rhythm she was in. A few suggested Afib. Denies current symptoms. Pt reports sob on exertion and dizziness on exertion. Denies LOC. Last week, felt very dizzy to the point where she almost passed out. Denies recent illness. Drinks about 2 L of water daily, 1 cup of coffee, one glass of wine last week. Does not drink ETOH consistently. No tobacco or illicit substances. Working w/PCP and Vascular for recent diagnosis of Fibromuscular Displasia. Started on ASA and Lipitor last month. Otherwise, no missed doses of meds. Slowly losing weight since being on Zepbound. Recent weight 175 lbs. Denies any vomiting or diarrhea otherwise. Pt will try sending tracings through MyChart/email. Pt made aware of ER precautions. Pt verbalized understanding. * Allyn Harp - 02/26/2025 10:33 AM EDT Patient is experiencing heart palpitation. She states she does feel lightheaded and slight SOB. Denies any chest pain. Please advise. Best call back number is [phone] documented in this encounter Plan of Treatment Upcoming Encounters Date Type Department Care Team (Late st Contact Info) Description 02/28/2025 11:10 AM EDT Office Visit [facility] - [facility] [address] [facility] [address] [place] [phone] Nataly Friend PA [address] [place] [address] Dr Zambr[address] [place] [phone] 04/04/2025 8:15 AM EST Office Visit Bariatric Surgery - [place] 175 [facility] [address] [place] [phone] Devante Vergara MD [address] [place] [address] 05/01/2025 7:30 AM EST Appointment [facility] [address] [place] [phone] Odin Garza MD [address] [place] [phone] documented as of this encounter Goals Goal Patient Goal Type Associated Problems Recent Progress Patient-Stated? Author Autogenerat ed Goal Care Plan Autogenerated Problem No Sammi Choi documented as of this encounter Visit Diagnoses Not on filedocumented in this encounter Discontinued Medications Medication Sig Discontinue Reason Start Date End Da te lifitegrast (Xiidra) 5 % dropperette apply to the eye. Non-compliance 02/26/2025 aspirin 81 mg chewable tablet Chew 1 tablet (81 mg total) 1 (one) time each day. Alternate therapy 02/26/2025 documented as of this encounter Historical Medications * This list may reflect changes made after this encounter. apixaban (ELIQUIS) 5 mg tablet Take 1 tablet (5 mg total) by mouth 2 (two) times a day. atorvastatin (LIPITOR) 20 mg tablet Take 1 tablet (20 mg total) by mouth at bedtime. calcium citrate-vitamin D (CITRACAL+D) 315 mg-5 mcg (200 unit) per tablet Take 1 tablet by mouth 1 (one) time each day. aspirin 81 mg chewable tablet Chew 1 tablet (81 mg total) 1 (one) time each day. 02/26/2025 added in this encounter Additional Health Concerns Active Problems Noted Date Diagnosed Date Autogenerated Problem 02/05/2025 documented as of this encounter Care Teams Transfer Car Operator Relationship Specialty Start Date End Date Jennifer Padron PA [address] [place] [address] PCP - General Physician Executive Chef Assistant 01/07/25 documented as of this encounter
--- OUTSIDE RECORDS SUMMARY | 2025-02-28 08:02 | XMS_ITS | Clinical Summary ---
Author Organization [facility] Address [address] [place] [address] Phone Care Team Providers Care Kiln Stacker Name Role Phone Jennifer Padron Primary Care Provider [phone] Allergies No known active allergies Medications metoprolol succinate (TOPROL-XL) 25 mg 24 hr [...] 01/09/20 25 Active tirzepatide, weight loss, (Zepbound) 12.5 mg/0.5 mL injection Inject 0.5 mL (12.5 mg total) under the skin every 7 (seven) days. 2 mL 02/21/20 25 025 Active calcium citrate-vitamin D (CITRACAL+D) 315 mg-5 mcg (200 unit) per tablet Take 1 tablet by mouth 1 (one) time each day. Active atorvastatin (LIPITOR) 20 mg tablet Take 1 tablet (20 mg total) by mouth at bedtime. Active apixaban (ELIQUIS) 5 mg tablet Take 1 tablet (5 mg total) by mouth 2 (two) times a day. Active lifitegrast (Xiidra) 5 % dropperette apply to the eye. 025 Discontinued(No n-compliance) tirzepatide, weight loss, (Zepbound) 10 mg/0.5 mL injectionIndica tions:Class 1 obesity due to excess calories with serious comorbidity and body mass index (BMI) of 32.0 to 32.9 in adult Inject 0.5 mL (10 mg total) under the skin every 7 (seven) days. 2 mL 1 01/26/20 25 025 Discontinued aspirin 81 mg chewable tablet Chew 1 tablet (81 mg total) 1 (one) time each day. 025 Discontinued(Al ternate therapy) Active Problems Problem Noted Date Diagnosed Date [...] Ct scan Coronary artery disease invo lving karuk coronary artery of karuk heart 06/12/2023 Gastroesophageal reflux disease without esophagi tis 06/12/2023 First degree heart block 08/11/2021 Overview (05/23/2024): Last Assessment & Plan: Noted on ECG. We will continue to monitor. Paroxysmal atrial fibrillation (CMS/HCC V24, CMS /HCC V28) 02/17/2021 Overview (05/23/2024): Postoperative atrial fibrillation following lung surgery. He had a VATS procedure involving the left lower lobe. No recurrence. [id number] score of 2 for age and female [...] root treated by ablation in 2012 at [facility] by Dr. Herrera. Complicated [...] cell skin cancer 09/15/2016 Overview (05/23/2024): Left scientology Right wrist- in situ - ED&C 04/2017 In situ - left preauricular and right cheek 10/2019 Encounters Date Type Department Care Team Description 02/27/2025 Telephone Gastroenterology - [address] [place] [phone] Odin Garza MD 02/26/2025 Telephone [facility] - [address] [place] [phone] Ottoniel Reece MD 02/19/2025 Telephone Bariatric Surgery - [place] 175 [facility] [address] [place] [address] Devnate Vergara MD 01/24/2025 Telephone Bariatric Surgery - [place] 175 [facility] [address] [place] [phone] Devante Vergara MD 01/08/2025 2:00 PM EDT Office Visit [facility] - [address] [facility] [address] [place] [phone] Ottoniel Reece MD Paroxysmal atrial fibrillation (CMS/HCC V24, CMS/HCC V28) (Primary Dx); PVC (premature ventricular contraction) 12/14/2024 Telephone Gastroenterology - 299 [facility] [address] [facility] [address] [place] [phone] Oidn Garza MD 12/11/2024 Telephone Bariatric Surgery [facility] 175 [facility] [address] [place] [phone] Devante Vergara MD from Last 3 Months Immunizations Immunization Administration Dates Next Due Moderna SARS-CoV-2 COVID-19, mRNA, LNP-S, preservative free 07/21/2020,06/23/2020 Surgical History Surgery Date Site/Laterality Comments OTHER SURGICAL HISTORY PROCEDURE: MO CRNEC EXC BRAIN TUMOR INFRATENTORIAL/POST FOSSA TOTAL KNEE ARTHROPLASTY Right PROCEDURE: MO ARTHRP KNE CONDYLE&PLATU MEDIAL&LAT COMPARTMENTS ANKLE SURGERY Right PROCEDURE: HISTORICAL ANKLE SURGERY; COMMENT: reconstruction BUNIONECTOMY Left PROCEDURE: BUNION SURGERY, SIMPLE REMOVAL Medical History Medical History Date Comments Squamous cell skin cancer 09/15/2016 DX:Squ amous cell skin cancer; COMMENT: Left scientology PVC (premature ventricular contraction) 09/21/2017 DX:PVC (premature [...] Description 02/28/2025 11:10 AM EDT Office Visit [facility] - [facility] [address] [facility] 154 [place] [phone] Nataly Friend PA [address] [place] [address] [place] [phone] 04/04/2025 8:15 AM EST Office Visit Bariatric Surgery - [place] [address] [facility] [address] [place] [address] Devante Vergara MD [address] [place] [phone] 05/01/2025 7:30 AM EST Appointment [facility] Endoscopy [address] [place] [address] Odin Garza MD [address] [place] [phone] Health Maintenance Due Date Last Done Comments Breast Cancer Screening 1955 Zoster Vaccines (1 of 2) 01/24/2014 11/29/2013 Falls Risk Assessment 04/04/2022 Osteoporosis Screening (Bone Density Screening) 04/04/2022 Social Influencers of Health Screening 04/04/2022 Medicare Annual Wellness Visit 10/30/2023 10/29/2022 Depression Screening 05/02/2024 Influenza Vaccine (#1) 2024 , 01/20/2024, 02/09/2023, Additional history exists Hypertension/CHF/CAD Annual BMP Blood Test 11/08/2025 11/08/2024, 11/23/2023, 11/23/2023, Additional history exists Cholesterol Screening (Lipid Panel) 11/16/2028 11/17/2023 DTaP,Tdap,and Td Vaccines (2 - Td or Tdap) 09/24/2029 09/25/2019 Colorectal Cancer Screening: Colonoscopy 12/17/2034 12/17/2024 Pneumococcal Vaccine: 50+ Years Completed 09/25/2020, 09/25/2019, 04/17/2013 Hepatitis C Screening Completed 11/17/2023 RSV Immunization Adult Patients Completed 03/14/2024 COVID-19 Vaccine Completed 02/22/2025, 01/2024, 01/20/2024, Additional history exists HIB Vaccines Aged Out No longer eligi [...] on patient's age to complete this topic Goals Goal Patient Goal Type Associated Problems Recent Progress Patient-Stated? Author Autogenerat ed Goal Care Plan Autogenerated Problem No Sammi Choi Procedures Procedure Name Priority Date/Time Associated Diagnosis [...] GEMUSE QTc 449 ms GEMUSE P Wave Parlier 74 degrees GEMUSE R Parlier 73 degrees GEMUSE T [place] 66 degrees GEMUSE ECG Interpretation Sinus rhythm [...] Basic metabolic panel (11/08/2024 10:56 AM EDT) [facility] Glucose 94 70 - 99 mg/dL [facility] [...] 1:06 AM EDT Performed at: 01 - [facility] [id number] Fiberglass Autobody Repairer: Nella Razo MD, Phone: [phone] Darlene Marcelo MANUFACTURING ENGINEERING TECHNOLOGIST LAB BLOOD ORDERABLES Final R esult [facility] 1 * Hepatitis C Screening (11/17/2023) [facility] Hepatitis C Screening abstracted us Historical Provider HEALTH MAINTENANCE Final Result * Lipid panel (11/17/2023) [facility] LDL/HDL Ratio 0 Comment:no interpretation, a bstracted Triglycerides 0 mg/dL Comment:no interpretation, a bstracted Cholesterol 0 mg/dL Comment:no interpretation, a bstracted HDL 0 mg/dL Comment:no interpretation, a bstracted LDL Cholesterol 0 mg/dL Comment:no interpretation, a bstracted Blood Venous blood specimen / Unknown us Historical Provider LAB BLOOD ORDERABLES Erika l Result from Last 3 Months or Most Recently Relevant to Health Maintenance Additional Health Concerns Active Problems Noted Date Diagnosed Date Autogenerated Problem 02/05/2025 Insurance MEDICARE [facility] Care Teams Kiln Stacker Relationship Specialty Start Date End Date Jennifer Padron PA [address] [place] [address] PCP - General Physician Fuse Maker 01/07/25
--- OUTSIDE RECORDS SUMMARY | 2025-02-28 08:02 | XMS_ITS | Data Portability ---
Author Organization [facility] [employer] Address [address] [place] [address] [place] [phone] Assessment No assessment recorded. Plan of Treatment Reminders Order Date Submit Date Provider Last Modified By Organization Details Last Modified Time Details Appointments None record ed. Lab None record ed. Referral None record ed. Procedures None record ed. Surgeries None record ed. Imaging None record ed. Medication Orders None record ed. Patient TargetsNo targets recorded. Patient InstructionsNo instructions recorded. Reason for Referral None Reported. Problems Name Problem SNOMED Code Status Onset Date Resolution Date Notes Provider Name and Address Organization Details Recorded Time Abscess [id number] Active Mariah stout, [facility] 01/08/2015 09:33:02 Problem Notes None recorded. Medical Equipment None Reported. Medications Not known to be on any medication Vitals None Recorded Social History None recorded. Functional Status None recorded. Mental Status None recorded. Family History Nothing Reported. Medical History No medical history recorded. Gynecological HistoryNo gynecological history recorded. Obstetrics History GPAL:G 0 P 0 0 0 0 Past Encounters Encounter ID Performer Location Encounter Start Date Encounter Closed Date Diagnosis/Indication Diagnosis SNOMED-CT Code Diagnosis ICD10 Code Diagnosis IMO Codes Diagnosis Note [id number] Sukh Weller MD [address] [address] 01/02/2015 13:35:22 01/09/2015 03:49:32 Abscess [id number] hard, tender inflamed areas right axilla; after discussing findings with patient and obtaining her consent the area was prepped with antiseptic , injected with with 0.5cc xylocaine, incised and drained purulent fluid. Dry sterile dressing applied; patient given rx for Ceftin 500mg BID , 14 tabs (7 days.) Client given instructio ns to keep area clean and dry; verbalizes understand ing of instructio ns and signs and symptoms to report; understand s getting antibiotic filled, taking complete amount. Health Concerns Section Related Observation LastModified by Organization Detai ls LastModified Time None Recorded Concern Status LastModified by Organization Details LastModified Time None Recorded Advance Directives Directive None Recorded Payers Insurance Date Sequence Insurance Name Policy Number Policy Cuellar Covered Member ID Cuellar Member ID Guarantor Name 01/07/2015 1 [id number] Kanchan Erasmo 11/01/2022 1 [facility] [id number] Kanchandru Zimmerman [id number] Kanchan Zimmerman Notes Date Note Type Note Provider Name and Address Organization Details Recorded Time 12/30/2014 text/html Rash/Skin LesionReported by PatientHPIFor severity, patient reportsmoderate. For duration, patient reportshas noted for <1 week. For onset/timing, patient reportsabrupt onset. For treatment history, patient reportsotc treatment ___ with no improvement.see physical exam below Sukh stout [place] - [facility] 01/11/2015 17:19:03 OBGyn Episode No OBEpisode recorded.
--- OUTSIDE RECORDS SUMMARY | 2025-02-28 08:02 | XMS_ITS | Encounter Summary ---
Author Organization [facility] Address [address] [place] [address] Care Team Providers Care Turbine Technician Name Role Phone Jennifer Padron PA-C Primary Care Provi teo Lorri Blair MD Unavailable [phone] Ottoniel Reece MD Unavailable Unavailable Familia Koo MD Unavailable [phone] Steve Rangel MD Unavailable Unavailable Jignesh Valentine MD Unavailable [phone] Encounter Details Date Type Department Care Team (Late st Contact Info) Description 11/23/2023 Scanned Document [facility] [address] [place] [address] Neurosurgery, Scan Social History Tobacco Use Types [...] Description 06/13/2025 9:30 AM EST Office Visit [address] [place] [phone] Jennifer Padron PA-C [address] [place] [address] documented as of this encounter Visit Diagnoses Not on filedocumented in this encounter Care Teams Turbine Technician Relationship Specialty Start Date End Date Jennifer Padron PA-C PCP - General Adult Health - PA/APNP/RNP/PLASTIC BOAT PATCHER 05/06/22 [place] [address] [place] [address] Referring Provider Urogynecology 11/22/23 Ottoniel Reece MD [address] [place] [address] Cardiology-Scan 11/22/23 Familia Koo MD [address] [place] [address] Pulmonary Disease 11/22/23 Steve Rangel MD [address] [place] [address] Referring Provider Gastroenterology 11/22/23 Jignesh Valentine MD [address] [place] [address] Physician Neurosurgery-Scan 11/22/23 Mj Friend Physician Endocrinology 10/31/23 Anita [facility] Dermatology 10/31/23 documented as of this encounter
--- OUTSIDE RECORDS SUMMARY | 2025-02-28 08:02 | XMS_ITS | Encounter Summary ---
Author Organization [facility] Address [address] [place] [address] Care Team Providers Care Furnace Checker Name Role Phone Jennifer Padron Primary Care Provider [phone] Encounter Details Date Type Department Care Team (Late st Contact Info) Description 02/27/2025 Telephone Gastroenterology - [address] [place] [address] Odin Garza MD [address] [place] [phone] Social History Tobacco Use Types Packs/Day Years [...] as of this encounter Progress Notes * Ronna Bob MA - 02/27/2025 12:02 PM EDT Rescheduled. I did inform her typically when put on blood thinners she can't be off of them for a year and we might have to r/s for a year out. * Mila Moctezuma - 02/27/2025 9:14 AM EDT Pt has a colon on 03/06 and would like to reschedule because she just started on a-fib and needs to be on blood thinner for a month documented in this encounter Plan of Treatment Upcoming Encounters Date Type Department Care Team (Late st Contact Info) Description 02/28/2025 11:10 AM EDT Office Visit [facility] - [facility] [address] [facility] [address] [place] [address] Nataly Friend PA [address] [place] [address] [place] [phone] 04/04/2025 8:15 AM EST Office Visit Bariatric Surgery - [place] 175 [facility] [address] [place] [address] Devante Vergara MD [address] [place] [phone] 05/01/2025 7:30 AM EST Appointment [facility] Endoscopy [address] [place] [phone] Odin Garza MD [address] [place] [phone] documented as of this encounter Goals Goal Patient Goal Type Associated Problems Recent Progress Patient-Stated? Author Autogenerat ed Goal Care Plan Autogenerated Problem No ChoiSammi navarrete documented as of this encounter Visit Diagnoses Not on filedocumented in this encounter Additional Health Concerns Active Problems Noted Date Diagnosed Date Autogenerated Problem 02/05/2025 documented as of this encounter Care Teams Furnace Checker Relationship Specialty Start Date End Date Jennifer Padron PA [address] [place] [address] PCP - General Physician Heat Pump Installer 01/07/25 documented as of this encounter
--- OUTSIDE RECORDS SUMMARY | 2025-02-28 08:02 | XMS_ITS | Encounter Summary ---
Author Organization [facility] Address [address] [place] [address] Care Team Providers Care Virginia Line Attendant Name Role Phone Jennifer Padron PA-C Primary Care Provi teo Lorri Blair MD Unavailable [phone] Ottoniel Reece MD Unavailable Unavailable Familia Koo MD Unavailable [phone] Steve Rangel MD Unavailable Unavailable Jignesh Valentine MD Unavailable [phone] Encounter Details Date Type Department Care Team (Late st Contact Info) Description 11/17/[address] [address] Jennifer Padron PA-C [address] [place] [address] Social History Tobacco Use Types Packs/Day Years [...] Miscellaneous Notes * Telephone Encounter - Emmy Toshia - 11/17/2023 3:15 PM EDT Spoke with [place] if Michael calls back - to tell them that we are NOT going to change the code and patient can either call her insurance or we can have her come in to discuss or not have the test done at this time, FYI. * Telephone Encounter - Monica Magaña MA [...] Description 06/13/2025 9:30 AM EST Office Visit [address] [place] [address] Jennifer Padron PA-C [address] [place] [address] documented as of this encounter Visit Diagnoses Not on filedocumented in this encounter Care Teams Virginia Line Attendant Relationship Specialty Start Date End Date Jennifer Padron PA-C PCP - General Adult Health - SAIMA/WILBERT/GAS TRANSFER OPERATOR/HOSPICE/HOME HEALTH AIDE 05/06/22 Lorri Blair MD [address] [place] [address] Referring Provider Urogynecology 11/22/23 Ottoniel Reece MD [address] [place] [address] Cardiology-Scan 11/22/23 Familia Koo MD [address] [place] [id number] Pulmonary Disease 11/22/23 Steve Rangel MD [address] [place] [address] Referring Provider Gastroenterology 11/22/23 Jignesh Valentine MD [address] [place] [address] Physician Neurosurgery-Scan 11/22/23 Mj Friend Physician Endocrinology 10/31/23 Anita Cristobal [facility] Dermatology 10/31/23 documented as of this encounter
--- OUTSIDE RECORDS SUMMARY | 2025-02-28 08:02 | XMS_ITS | Encounter Summary ---
Author Organization [facility] Address [address] [place] [address] Care Team Providers Care Lead Etl Developer Name Role Phone Jennifer Padron PA-C Primary Care Provi teo Lorri Blair MD Unavailable [phone] Ottoniel Reece MD Unavailable Unavailable Familia Koo MD Unavailable [phone] Steve Rangel MD Unavailable Unavailable Jignesh Valentine MD Unavailable [phone] Encounter Details Date Type Department Care Team (Late st Contact Info) Description 10/31/2024 Scanned Document [address] [address] Primary Care, Scan Social History [...] 06/13/2025 9:30 AM EST Office Visit [address] [address] Jennifer Padron PA-C [address] [place] [address] documented as of this encounter Visit Diagnoses Not on filedocumented in this encounter Care Teams Lead Etl Developer Relationship Specialty Start Date End Date Jennifer Padron PA-C PCP - General Adult Health - PA/APNP/DIGITAL COURT REPORTER/PITCH WORKER 05/06/22 Lorri Blair MD [address] [place] [address] Referring Provider Urogynecology 11/22/23 Ottoniel Reece MD [address] [place] [address] Cardiology-Scan 11/22/23 Familia Koo MD [address] [place] [address] Pulmonary Disease 11/22/23 Steve Rangel MD [address] [place] [address] Referring Provider Gastroenterology 11/22/23 Jignesh Valentine MD [address] [place] [address] Physician Neurosurgery-Scan 11/22/23 Mj Friend Physician Endocrinology 10/31/23 Anita Cristobal [facility] Dermatology 10/31/23 documented as of this encounter
--- OUTSIDE RECORDS SUMMARY | 2025-02-28 08:02 | XMS_ITS | Encounter Summary ---
Author Organization [facility] Address [address] [place] [address] Care Team Providers Care Paint Maker Name Role Phone Jennifer Padron PA-C Primary Care Provi teo Lorri Blair MD Unavailable Ottoniel Reece MD Unavailable Unavailable Familia Koo MD Unavailable [phone] Steve Rangel MD Unavailable Unavailable Jignesh Valentine MD Unavailable [phone] Encounter Details Date Type Department Care Team (Late st Contact Info) Description 09/10/2024 Scanned Document [facility] [address] [place] [address] Orthopedic Surgery, Scan Social History Tobacco Use [...] Description 06/13/2025 9:30 AM EST Office Visit [address] [place] [address] Jennifer Padron PA-C [address] [place] [address] documented as of this encounter Visit Diagnoses Not on filedocumented in this encounter Care Teams Paint Maker Relationship Specialty Start Date End Date Jennifer Padron PA-C PCP - General Adult Health - PA/WILBERT/PARACHUTE CROWN SEWER/STATION INSTALLATION SUPERVISOR 05/06/22 [place] [address] [place] [address] Referring Provider Urogynecology 11/22/23 Ottoniel Reece MD [address] [place] [address] Cardiology-Scan 11/22/23 Familia Koo MD [address] [place] [address] Pulmonary Disease 11/22/23 Steve Rangel MD [address] [place] [address] Referring Provider Gastroenterology 11/22/23 Jignesh Valentine MD [address] [place] [address] Physician Neurosurgery-Scan 11/22/23 Mj Friend Physician Endocrinology 10/31/23 Anita Cristobal [facility] Dermatology 10/31/23 documented as of this encounter
--- OUTSIDE RECORDS SUMMARY | 2025-02-28 08:02 | XMS_ITS | Continuity of Care Document ---
Author Organization [facility] [address] [facility] [address] [place] [address] Phone [phone] Care Team Providers Care Preschool Adviser Name Role Phone Jennifer Padron Care Team Information Re ceiver [phone] Problems Active Problems Provider Date Essential hypertension Mj Mooney M.D. O nset: 04/20/2023 Hyperlipidemia Mj Mooney M.D. Onset: 1 06/21/2022 Osteoporosis Mj Mooney M.D. Onset: 1 06/21/2022 Gastroesophageal reflux disease Mj nixon M.D. Onset: 04/20/2023 History of cerebral aneurysm Mj Mooney M.D. Onset: 04/20/2023 Obstructive sleep apnea syndrome Mj casey M.D. Onset: 04/20/2023 Atherosclerosis of aorta Mj Mooney M.D. Onset: 04/20/2023 Social History Type Date Description Comments Sex Female Sex Unknown Tobacco Use Start: Unknown End: Unknown Quit 1992 ETOH Use Occasionally consumes alcoho l Tobacco Use Start: Unknown End: Unknown Patient is a former smoker Allergies and adverse reactions Description No Known Drug Allergies Medications Active Medications SIG Qnty Indications Ordering Provider Date Wegovy0.25mg/0.5ML Solution Auto-Inject inject 0.5 ml weekly for one month 2ml Mj Mooney M.D. 05/01/[id number] 1 by mouth every day 30caps Jennifer Padron, P.A. Metoprolol Succinate ER25mg Tablets ER 24HR 1 by mouth every day Unknown Trazodone SWO26mn Tablets take 1 tablet by mouth at bedtime 60tabs Jennifer Padron, P.A. Lorazepam0.5mg Tablets Take 1 Tablet By Mouth Twice A Day Jennifer Padron, P.A. History Medications Zepbound2.5mg/0.5ML Solution Auto-Inject inject weekly 2ml Mj Alvarenga M.D. 04/23/2024 - 05/18/2024 Vital Signs Date Vital Result Comment 04/23/2024 9:09am Height 65.5 inches 5'5.50 Weight 205.38 lb BMI (Body Mass Index) 33.7 kg/m2 Results Test Acquired Date Facility Test Result H/L Range Note CBC With Differential/ Platelet 02/22/2025 [facility] WBC 5.0 x10E3/uL 3.4-10.8 RBC 4.32 x10E6/uL 3.77-5.28 Hemoglobin 13.2 g/dL 11.1-15.9 Hematocrit 40.9 % 34.0-46.6 MCV 95 fL 79-97 MCH 30.6 pg 26.6-33.0 MCHC 32.3 g/dL 31.5-35.7 RDW 13.1 % 11.7-15.4 Platelets 273 x10E3/uL 150-450 Neutrophils 58 % Not Estab. Lymphs 27 % Not Estab. Monocytes 10 % Not Estab. Eos 4 % Not Estab. Basos 1 % Not Estab. Immature Cells TNP Neutrophils (Absolute) 2.9 x10E3/uL 1.4-7.0 Lymphs (Absolute) 1.4 x10E3/uL 0.7-3.1 Monocytes(Absol ut e) 0.5 x10E3/uL 0.1-0.9 Eos (Absolute) 0.2 x10E3/uL 0.0-0.4 Baso (Absolute) 0.1 x10E3/uL 0.0-0.2 Immature Granulocytes 0 % Not Estab. Immature Grans (Abs) 0.0 x10E3/uL 0.0-0.1 NRBC TNP Hematology Comments: TNP Comp. Metabolic Panel (14) 02/22/2025 [facility] Glucose 83 mg/dL 70-99 BUN 12 mg/dL 8-27 Creatinine 1.06 mg/dL High 0.57-1.00 eGFR 56 mL/min/1.73 Low >59 BUN/Creatinine Ratio 11 Low 12-28 Sodium 142 mmol/L 134-144 Potassium 4.5 mmol/L 3.5-5.2 Chloride 105 mmol/L 96-106 Carbon Dioxide, Total 24 mmol/L 20-29 Calcium 9.4 mg/dL 8.7-10.3 Protein, Total 6.3 g/dL 6.0-8.5 Albumin 4.0 g/dL 3.8-4.8 Globulin, Total 2.3 g/dL 1.5-4.5 Bilirubin, Total 0.6 mg/dL 0.0-1 .2 Alkaline Phosphatase 85 IU/L 49-135 Ast (Sgot) 24 IU/L 0-40 Alt (SGPT) 19 IU/L 0-32 Vitamin D, 25-Hydroxy 02/22/2025 [facility] Vitamin D, 25-Hydroxy 38.8 ng/mL 30.0-100. 0 1 PTH, Intact 02/22/2025 [facility] PTH, Intact 31 pg/mL 15-65 N-Telopeptide , Urine 02/22/2025 [facility] N-Telopeptide 91 nmolBCE Not Estab. Creatinine, Urine 78.9 mg/dL Not Estab. N-Telo/Creat. Ratio 13 nMBCE/mMCr 0-89 Interpretive Guide: See Comment: 2 PTH, Intact 02/04/2025 [facility] PTH, Intact <pending> N-Telopeptide , Urine 02/04/2025 [facility] N-Telopeptide, Urine <pending> Vitamin D, 25-Hydroxy 02/04/2025 [facility] Vitamin D, 25-Hydroxy <pending> 25Oh Vitamin D 04/27/2023 [facility] 25Oh Vitamin D 31.7 NG/ML (20-50) PTH, Intact 04/27/2023 [facility] PTH, Intact 50 pg/mL (15-65) N-Telopeptide Cross Links, Urine 04/27/2023 [facility] Cross Linked N-Telopeptides 208 3 Creat, Urine 38.9 4 N-Telopeptide/C re at Ratio 60 5 NTX Interpretaion Comment 6 1 Vitamin D deficiency has been defined by the [place] of Medicine and an Endocrine Society practice guideline as a level of serum 25-OH vitamin D less than 20 ng/mL (1,2). The Endocrine Society went on to further define vitamin D insufficiency as a level between 21 and 29 ng/mL (2). 1. IOM ([place] of Medicine). 2010. Dietary reference intakes for calcium and D. [place]: The National Academies Press. 2. Rafa MF, Belinda ARTHUR, Dann GAMBINO, et al. Evaluation, treatment, and prevention of vitamin D deficiency: an Endocrine Society clinical practice guideline. JCEM. 2010; 96(7):1911-30. 2 The N-telopeptide an d Creatinine are used to calculate the N-telo/Creat. Ratio which is referred to as NTx . Suggested guidelines for the clinical use of NTx are as follows: 1. Menopausal Women not on Hormone Replacement Therapy (HRT): Women with a baseline NTx value >38 are at significant risk for a decrease in bone mineral density (BMD) after 1 year compared to women on HRT. The probability of a decline in BMD increases with NTx value as follows: (1): Baseline NTx Probability of Decrease in BMD 18- 38 1.4 p=0.28 38- 51 2.5 p=0.03 51- 67 3.8 p=0.0006 67-188 17.3 p=0.0001 2. Menopausal Women Receiving Antiresorptive Therapy: The probability that treatment is effective after three months is increased when the measured NTx value is <or=38 nM BCE/mM BIOFUELS ENGINEERING MANAGER, or NTx has decreased >or=30% from baseline.[1] 3. Patients with Paget's Disease of Bone: The probability that treatment is effective after one month is increased when the measured NTx value is within the reference range, or NTx has decreased >or=30% from baseline.[2] 1. Carlton CH, Small NH, Ernie GS, et al. Am J Med, 102:29-37,1997. (1):M757, 1996. 2. Bone H, Jamila Xavier, et al. J Bone Min Res.11(1):M757,1996 3 Reference range: Not Estab. Unit: nmol BCE Test performed at [address] [address] 4 Reference range: Not Estab. Unit: mg/dL Test [facility] by [facility], [address] [place] [address] 5 Reference range: 0 t o 89 Unit: nM BCE/mM Cr 6 (NOTE) The N-telopeptide and Creatinine are used to calculate the N-telo/Creat. Ratio which is referred to as NTx . Suggested guidelines for the clinical use of NTx are as follows: 1. Menopausal Women not on Hormone Replacement Therapy (HRT): Women with a baseline NTx value >38 are at significant risk for a decrease in bone mineral density (BMD) after 1 year compared to women on HRT. The probability of a decline in BMD increases with NTx value as follows: (1): Baseline NTx Probability of Decrease in BMD 18- 38 1.4 p EQ 0.28 38- 51 2.5 p EQ 0.03 51- 67 3.8 p EQ 0.0006 67-188 17.3 p EQ 0.0001 2. Menopausal Women Receiving Antiresorptive Therapy: The probability that treatment is effective after three months is increased when the measured NTx value is <or EQ 38 nM BCE/mM BIOFUELS ENGINEERING MANAGER, or NTx has decreased >or EQ 30% from baseline.[1] 3. Patients with Paget's Disease of Bone: The probability that treatment is effective after one month is increased when the measured NTx value is within the reference range, or NTx has decreased >or EQ 30% from baseline.[2] 1. Carlton CH, Small NH, Ernie GS, et al. Am J Med, 102:29-37,1997. (1):M757, 1996. 2. Bone H, Jamila J, et al. J Bone Min Res.11(1):M757,1996 Test performed at [address] [address] Medical Devices Description No Information Available Encounters Type Date Location Provider Dx Diagnosis Office Visit 04/23/2024 9:00a Main Office Mj Mooney M.D. M81.0 Age-related osteoporosis w/o current pathological fracture E66.9 Obesity, unspecified Assessments Date Code Description Provider 04/23/2024 M81.0 Age-related oste oporosis without current pathological fracture Mj Mooeny M.D. 04/23/2024 E66.9 Body mass index 30+ - obesit y Mj Mooney M.D. Plan of Treatment Future Appointment(s):* 04/15/2025 8:30 am - Mj Mooney M.D. at Main Office 04/23/2024 - Mj Mooney M.D.* M81.0 Age-related osteoporosis without current pathological fracture * E66.9 Body mass index 30+ - obesity * * New Xrays:* Dexa Bone Density Study Axial Skeleton, Ordered: 04/23/24 Functional Status Description No Information Available Mental Status Description No Information Available Referrals Description No Information Available
--- OUTSIDE RECORDS SUMMARY | 2025-02-28 08:03 | XMS_ITS | Clinical Summary ---
Author Organization [facility] Address [address] [place] [address] Care Team Providers Care Police Officer Name Role Phone Jennifer Padron PA-C Primary Care Provi teo Lorri Blair MD Unavailable [phone] Ottoniel Reece MD Unavailable Unavailable Familia Koo MD Unavailable [phone] Steve Rangel MD Unavailable Unavailable Jignesh Valentine MD Unavailable [phone] Allergies No known active allergies Medications flecainide (TAMBOCOR) 100 MG tablet Take 1 tablet (100 mg total) by mouth 2 (two) times a day. 2 Active metoPROLOL SUCCINATE (TOPROL-XL) 25 MG 24 hr tablet Take 1 tablet (25 mg total) by mouth daily. 2 Active multivitamin Tab tablet Take 1 tablet by mouth daily. Active traZODone (DESYREL) 50 MG tabletIndicatio ns:Primary insomnia TAKE 2 TABLETS (100 MG TOTAL) BY MOUTH NIGHTLY 180 tablet 5 Active LORazepam (ATIVAN) 0.5 MG tabletIndicatio ns:Anxiety Take 1 tablet (0.5 mg total) by mouth 2 (two) times a day as needed for anxiety. 30 tablet 5 Active OMEprazole (PriLOSEC) 20 MG capsuleIndicati ons:Gastroesoph ageal reflux disease without esophagitis TAKE ONE CAPSULE BY MOUTH ONCE DAILY (IC PRILOSEC) 90 capsule 5 Active OMEprazole (PriLOSEC) 20 MG capsuleIndicati ons:Gastroesoph ageal reflux disease without esophagitis TAKE ONE CAPSULE BY MOUTH ONCE DAILY (IC PRILOSEC) 90 capsule 025 Discontinued Active Problems Problem Noted Date Diagnosed Date History of tobacco abuse 11/22/2023 Assessment & Plan (12/11/2024 4:13 PM EDT): Follows with pulmonary. Up-to-date with imaging. CT scan is done at [facility]. Patient was offered treatment for the Mycobacterium [...] further evaluation back in May 2023 at [facility]. It did show minimal stenosis in [...] aneurysm. Follows with Dr. Galdamez out in [place]. Patient's last CTA of the head was out in [place] in 2023 which showed: CTA Head: * [...] like to go to [facility] in [place]. This is the first time that I have seen this report. There is some question whether there is some underlying fibromuscular dysplasia. I will refer patient to vascular at [facility] defer for workup. Other hyperlipidemia 06/12/2023 [...] with imaging. CT scan is done at [facility]. Patient was offered treatment for the Mycobacterium however she has declined this. Asthma has been stable. Patient is not on any inhalers. We will get the notes from pulmonary. 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 Up-to-date with imaging. CT scan is done at [facility]. Patient was offered treatment for the Mycobacterium [...] follow-up recommended. Coronary artery disease invo lving [place] coronary artery of [place] heart 06/12/2023 Assessment & Plan (12/11/2024 1:42 PM EDT): Patient had nuclear stress test done in January 2023 with possible small area of anterior ischemia and focal proximal LAD calcification on attenuation CT. Patient had a coronary CTA for further evaluation back in May 2023 at [facility]. It did show minimal stenosis in [...] had any further recurrence. Patient has a DOC2AU5-MQCx score of 2. Patient declines any type of anticoagulation. Has not had any further issues. With regards to PVCs. Patient had an ablation in [address] [facility]. They are symptomatic. She experiences lightheadedness with them and some shortness of breath. She follows with cardiology and is treated with flecainide and metoprolol.'s have been stable. Lung nodule 10/18/2018 06/12/2023 Overview (06/12/2023): Added automatically from request for surgery [id number] Assessment & Plan (12/11/2024 4:13 PM EDT): Follows with pulmonary. Up-to-date with imaging. CT scan is done at [facility]. Patient was offered treatment for the Mycobacterium [...] Encounters Date Type Department Care Team Description 02/18/[address] [phone] Jennifer Padron PA-C Gastroesophageal reflux disease without esophagitis 02/07/2025 Scanned Document [address] [address] Pulmonary, Scan 02/07/2025 Orders Only [address] [address] Provider, MD José 02/04/2025 Scanned Document [facility] [address] [place] [address] Pulmonary, Scan 01/30/2025 Orders Only [facility] [address] [place] [address] Vascular Surgery, Scan 01/28/2025 Scanned Document [facility] OPTHALMOLOGY SCAN Ophthalmolog y, Scan 01/24/2025 Scanned Document [facility] ORTHO SURGERY SCAN Orthopedic Surgery, Scan 01/18/2025 Telephone [facility] [address] [facility] [address] [place] [address] Jennifer Padron PA-C 01/11/2025 Orders Only [facility] [address] [place] [address] Primary Care, Scan 01/09/2025 Scanned Document [facility][note 3] [address] [place] [address] Neurology, Scan 01/09/2025 Scanned Document [facility][note 3] [address] [place] [address] Physical Therapy, Scan 12/19/2024 Telephone [facility] [address] [facility] [address] [place] [address] Jennifer Pdaron PA-C 12/11/2024 1:30 PM EDT Office Visit [facility] [address] [facility] [address] [place] [address] Jennifer Padron PA-C Encounter for annual wellness [...] Anxiety; Primary insomnia; Coronary artery disease involving [place] coronary artery of [place] heart without angina pectoris ; Atherosclerosis of [...] without status migrainosus, not intractable 12/11/[address] [address] Jennifer Padron PA-C 12/11/[address] [address] Jennifer Padron PA-C 12/11/[address] [address] Jennifer Padron PA-C 12/11/2024 Travel 12/10/[address] [address] Jennifer Padron PA-C Primary insomnia from Last 3 Months Immunizations Immunization Administration [...] Description 06/13/2025 9:30 AM EST Office Visit [address] [place] [address] Jennifer Padron PA-C [address] [place] [address] Health Maintenance Due Date Last Done Comments Physical 10/02/1971 Zoster (Shingles) Vaccine (2 of 3) 01/24/2014 11/29/2013 DXA Bone Density (Females,Ages 65 and older) 05/02/2024 05/02/2022 (Previously Completed) Influenza Vaccine 11/30/2024 Mammogram 09/03/2026 09/03/2024, 04/0 06/2023 (Previously Completed) DTaP/Tdap/Td Vaccines (2 - Td or Tdap) 09/24/2029 09/25/2019 Colonoscopy 02/07/2030 02/07/2025, 10/01 (Previously Completed) Pneumococcal Vaccines 50+ Completed 2020, 09/25/2019, 04/17/2013 COVID-19 Vaccine Discontinued 11/23/2021, 03/2021, 07/21/2020, Additional history exists Advance Care Planning Completed 01/05/2024 Hepatitis B Vaccines Aged Out No long er eligible based on patient's age to complete this topic Hepatitis C Virus Screening Discontinued RSV Vaccine 50 years and older and Patients Discontinued Procedures Procedure Name Priority Date/Time Associated Diagnosis Comments HX GASTROENTEROLOGY COLONOSCOPY-SCAN Routine 02/07/2025 10:46 AM EDT ULTRASOUND EXTERNAL RESULT Routine 01/23/2025 11:[address] SCAN EXTERNAL RESULT Routine 01/10/20 11:44 AM EDT IMAGING BREAST/BX/MAMMO Routine 09/04/19 7:05 AM EDT from Last 3 Months or Most Recently Relevant to Health Maintenance Results * HX GASTROENTEROLOGY COLONOSCOPY-SCAN (02/07/2025 10:46 AM EDT) us External Provider MD VEGA AMB PROCEDURES Final Res ult * Ultrasound External Result (01/23/2025 11:13 AM EDT) Anatomical Region Laterality Modality Ultrasound us Scan Vascular Surgery IMG US ORDERABLES Edited R esult - Final * CT Scan External Result (01/09/2025 11:44 [...] Most Recently Relevant to Health Maintenance Insurance [place] [id number] MEDICARE PART A & B Advance Directives Documents on File Type Date Recorded Patient Paintless Dent Repair Technician Expl anation Advance Directive-Scan 01/05/2024 Healt thcare Proxy- 11/22/2023 Care Teams Police Officer Relationship Specialty Start Date End Date Jennifer Padron PA-C PCP - General Adult Health - PA/APNP/BAND MACHINE OPERATOR/DRAG DOWN 05/06/22 Lorri Blair MD [address] [place] [address] Referring Provider Urogynecology 11/22/23 Ottoniel Reece MD [address] [place] [address] Cardiology-Scan 11/22/23 Familia Koo MD [address] [place] [address] Pulmonary Disease 11/22/23 Steve Rangel MD [address] [place] [address] Referring Provider Gastroenterology 11/22/23 Jignesh Valentine MD [address] [place] [address] Physician Neurosurgery-Scan 11/22/23 Mj Friend Physician Endocrinology 10/31/23 Anita Cristobal [facility] Dermatology 10/31/23
--- OUTSIDE RECORDS SUMMARY | 2025-02-28 08:03 | XMS_ITS | Encounter Summary ---
Author Organization [facility] Address [address] [place] [address] Care Team Providers Care Rivet Hole Machine Operator Name Role Phone Jennifer Padron PA-C Primary Care Provi teo Lorri Blair MD Unavailable [phone] Ottoniel Reece MD Unavailable Unavailable Familia Koo MD Unavailable [phone] Steve Rangel MD Unavailable Unavailable Jignesh Valentine MD Unavailable [phone] Encounter Details Date Type Department Care Team (Late st Contact Info) Description 01/24/2025 Scanned Document [facility] ORTHO SURGERY SCAN Orthopedic Surgery, Scan Social [...] Description 06/13/2025 9:30 AM EST Office Visit [address] [place] [phone] Jennifer Padron PA-C [address] [place] [address] documented as of this encounter Visit Diagnoses Not on filedocumented in this encounter Care Teams Rivet Hole Machine Operator Relationship Specialty Start Date End Date BalajiJsJennifer Sanchez PA-C PCP - General Adult Health - PA/APVALENTE/ORDER PROCESSING MANAGER/PIPEFITTER 05/06/22 [place] [address] [place] [address] Referring Provider Urogynecology 11/22/23 Ottoniel Reece MD [address] [place] [place] [address] Cardiology-Scan 11/22/23 Familia Koo MD [address] [place] [address] Pulmonary Disease 11/22/23 Steve Rangel MD [address] [place] [address] Referring Provider Gastroenterology 11/22/23 Jignesh Valentine MD [address] [place] [address] Physician Neurosurgery-Scan 11/22/23 Mj Friend Physician Endocrinology 10/31/23 Anita Cristobal [facility] Dermatology 10/31/23 documented as of this encounter
--- OUTSIDE RECORDS SUMMARY | 2025-02-28 08:03 | XMS_ITS | Encounter Summary ---
Author Organization [facility] Address [address] [place] [address] Care Team Providers Care Accessories Repairer Name Role Phone Jennifer Padron PA-C Primary Care Provi teo Lorri Blair MD Unavailable [phone] Ottoniel Reece MD Unavailable Unavailable Familia Koo MD Unavailable [phone] Steve Rangel MD Unavailable Unavailable Jignesh Valentine MD Unavailable [phone] Encounter Details Date Type Department Care Team (Late st Contact Info) Description 01/09/2025 Scanned Document [address] [address] Physical Therapy, Scan Social History [...] Description 06/13/2025 9:30 AM EST Office Visit [address] [place] [address] Jennifer Padron PA-C [address] [place] [address] documented as of this encounter Visit Diagnoses Not on filedocumented in this encounter Care Teams Accessories Repairer Relationship Specialty Start Date End Date Jennifer Padron PA-C PCP - General Adult Health - PA/APVALENTE/TAR POT MAN/BARGAIN TABLE CLERK 05/06/22 Lorri Blair MD [address] [place] [address] Referring Provider Urogynecology 11/22/23 Ottoniel Reece MD [address] [place] [address] Cardiology-Scan 11/22/23 Familia Koo MD [address] [place] [address] Pulmonary Disease 11/22/23 Steve Rangel MD [address] [place] [address] Referring Provider Gastroenterology 11/22/23 Jignesh Valentine MD [address] [place] [address] [address] [place] [address] Physician Neurosurgery-Scan 11/22/23 Mj Friend Physician Endocrinology 10/31/23 Anita Cristobal [facility] Dermatology 10/31/23 documented as of this encounter
--- OUTSIDE RECORDS SUMMARY | 2025-02-28 08:03 | XMS_ITS | Encounter Summary ---
Author Organization [facility] Address [address] [place] [address] Care Team Providers Care Implementation Lead Name Role Phone Jennifer Padron PA-C Primary Care Provi teo Lorri Blair MD Unavailable [phone] Ottoniel Reece MD Unavailable Unavailable Familia Koo MD Unavailable [phone] Steve Rangel MD Unavailable Unavailable Jignesh Valentine MD Unavailable [phone] Encounter Details Date Type Department Care Team (Late st Contact Info) Description 11/08/2024 Scanned Document [address] [place] [phone] Jennifer Padron PA-C [address] [place] [address] Social History Tobacco Use Types Packs/Day Years [...] Description 06/13/2025 9:30 AM EST Office Visit [facility] [address] [place] [phone] Jennifer Padron PA-C [address] [place] [address] documented as of this encounter Visit Diagnoses Not on filedocumented in this encounter Care Teams Implementation Lead Relationship Specialty Start Date End Date Jennifer Padron PA-C PCP - General Adult Health - PA/WILBERT/FLUXER/SEAM CHECKER 05/06/22 Lorri Blair MD [address] [place] [address] Referring Provider Urogynecology 11/22/23 Ottoniel Reece MD [address] [place] [address] Cardiology-Scan 11/22/23 Familia Koo MD [address] [place] [address] Pulmonary Disease 11/22/23 Steve Rangel MD [address] [place] [address] Referring Provider Gastroenterology 11/22/23 Jignesh Valentine MD [address] [place] [address] [address] [place] [address] Physician Neurosurgery-Scan 11/22/23 Mj Friend Physician Endocrinology 10/31/23 Anita Cristobal [facility] Dermatology 10/31/23 documented as of this encounter
--- OUTSIDE RECORDS SUMMARY | 2025-02-28 08:03 | XMS_ITS | Patient Health Record ---
Author Organization [facility] [place] Address [address] [place] [address] Care Team Providers Care Violin Teacher Name Role Phone Jennifer Lipscomb PA-C Primary Care Provider Carine vailable Black Viri Unavailable [phone] Donna Brannon Unavailable [phone] Gosia Rosario Unavailable [phone] Allergies No Known Allergies Results Component Value [...] Notes Problem Plantar fasciitis of right foot (229741960628125 ) Plantar fasciitis of right foot (M72.2) Active confirmed Problem Interstitial myositis (65731064) Interstitial myositis of right foot (M60.171) Active confirmed Vital Signs Blood pressure diastolic 73 mm Hg 01/10/2025 Height 5ft 5in in 01/10/2025 Blood pressure systolic 120 mm Hg 01/10/2025 Weight 178 lbs 01/10/2025 BMI 29.62 kg/m2 01/10/2025 Encounters Encounter Location Date Provider Diagnosis [address] [address] 08/23/2024 Viri Black Pain in right foot M79.671 ; Plantar fasciitis of right foot M72.2 ; Interstitial myositis of right foot M60.171 ; Bursitis of right foot M77.51 ; Hypertrophy of bone, 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 and Peroneal tendinitis, right leg M76.[address] [address] 10/11/2024 Viri Black Pain in right foot M79.671 ; Plantar fasciitis of right foot M72.2 ; Interstitial myositis of right foot M60.171 ; Bursitis of right foot M77.51 ; Hypertrophy of bone, 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 ; Peroneal tendinitis, right leg M76.71 and Metatarsalgia of right foot M77.41 [address] [place] [address] 11/08/2024 Viri Black Plantar fasciitis of right foot M72.2 ; Stress fracture of right calcaneus, initial encounter M84.374A ; Pain in right foot M79.671 ; Interstitial myositis of right foot M60.171 ; Bursitis of right foot M77.51 ; Hypertrophy of bone, 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 ; Peroneal tendinitis, right leg M76.71 and Metatarsalgia of right foot M77.[address] [address] 01/10/2025 Viri Black Plantar fasciitis of right foot M72.2 ; Stress fracture of right calcaneus, initial encounter M84.374A ; Pain in right foot M79.671 ; Interstitial myositis of right foot M60.171 ; Bursitis of right foot M77.51 ; Hypertrophy of bone, 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 ; Peroneal tendinitis, right leg M76.71 and Metatarsalgia of right foot M77.[address] [address] 10/11/2024 Viri Black Stress fracture of right calcaneus M84.374A [address] [address] 10/12/2024 Viri Black [address] [address] 11/08/2024 Viri Black [address] [address] 01/10/2025 Viri Black Assessments Encounter Date Diagnosis [...] Lynn Magnus , 03/05/2025 11:00:00 AM, [address] [facility], [place], [address], Insurance Providers Payer Name Payer Address Payer Phone Subscriber Number Group Number Insured Name Patient Relationship to Insured Coverage Start Date Coverage End Date Medicare National Govt [employer] [facility] [address] [facility] [place] [place] [address] [id number] Kanchan Zimmerman Self - patient is the insured 9 [employer] Blue [employer] [address] [place] [address] [phone] [id number] Kanchan Zimmerman Self - patient is the [...]
--- OUTSIDE RECORDS SUMMARY | 2025-02-28 08:03 | XMS_ITS | Encounter Summary ---
Author Organization [facility] Address [address] [place] [address] Care Team Providers Care Security Systems Installer Name Role Phone Jennifer Padron PA-C Primary Care Provi teo Lorri Blair MD Unavailable [phone] Ottoniel Reece MD Unavailable Unavailable Familia Koo MD Unavailable [phone] Steve Rangel MD Unavailable Unavailable Jignesh Valentine MD Unavailable [phone] Encounter Details Date Type Department Care Team (Late st Contact Info) Description 08/08/2023 Scanned Document [address] [address] Primary Care, Scan Social History [...] Description 06/13/2025 9:30 AM EST Office Visit [address] [phone] Jennifer Padron PA-C [address] [place] [address] documented as of this encounter Visit Diagnoses Not on filedocumented in this encounter Care Teams Security Systems Installer Relationship Specialty Start Date End Date Jennifer Padron PA-C PCP - General Adult Health - PA/APVALENTE/LUMBER DRIVER/PRIVATE EYE 05/06/22 Lorri Blair MD [address] [place] [address] Referring Provider Urogynecology 11/22/23 Ottoniel Reece MD [address] [place] [address] Cardiology-Scan 11/22/23 Familia Koo MD [address] [place] [address] Pulmonary Disease 11/22/23 Steve Rangel MD [address] [place] [address] Referring Provider Gastroenterology 11/22/23 Jignesh Valentine MD [address] [place] [address] Physician Neurosurgery-Scan 11/22/23 Mj Friend Physician Endocrinology 10/31/23 Anita Cristobal [facility] Dermatology 10/31/23 documented as of this encounter
--- OUTSIDE RECORDS SUMMARY | 2025-02-28 08:03 | XMS_ITS | Data Portability ---
Author Organization [place] [facility], [facility] - INPATIENT Address [address] [place] [address] Assessment Encounter Date Assessment Date Assessment LastModified by Organization Details LastModified Time 03/07/2023 03/07/2023 ASSESSMENT: Ms. Abernathy, a 67-year-old female, presents with ongoing discomfort in the quad area and trouble sleeping due to pain in the same spot. 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 Her physical exam reveals a bit of a swing gait and her abductor function is not 100%. Her radiograph shows bone spurs on the bottom portion of her lumbar spine, indicative of arthritis. Her hip replacement appears to be in good condition. Her spine demonstrates a curve, indicative of degenerative scoliosis. PLAN: - Consider evaluation of the spine to rule out any overlapping issues - Consider an MRI to assess the status of the muscle - Continue physical therapy and bracing for the knee - Consider liner exchange for the knee if the issue becomes more frequent or bothersome - Antibiotics for dental work for one more year - Patient can try jogging, but not for long distances or intense sessions [email or web address] Not available 03/07/2023 10:19:12 08/10/2023 08/10/2023 ASSESSMENT: Ms. Abernathy, a 67-year-old female, presents with knee instability and pain, which have worsened over time since her knee surgery eight years ago. Her physical exam and radiographs confirm the instability and reveal that the femoral component of her knee is a bit high on the bone. The patient's hip shows some arthritis, but it is not severe and is not likely the cause of her current knee issues. PLAN: - Consider revising the patient's knee components to correct the instability and realign the joint line with the kneecap. This would involve moving the femoral component down and the tibia down a bit. - If possible, try replacing the plastic components first to see if that corrects the issue. - If the plastic components replacement does not correct the issue, proceed with the full revision of the knee components. - The patient will likely need to stay in the hospital for at least one night following the surgery. - The patient's recovery is expected to take about four weeks for the initial recovery, with significant improvements expected from month one to month four, and the final 20% of recovery expected to occur passively from four months to a year. [email or web address] Not available 08/10/2023 15:08:26 09/22/2023 09/22/2023 Kanchan is about 4 weeks postop. We discussed their surgery, imaging, and plan from here. They can remain WBAT with no restrictions. They can continue to work with PT. They were given a prescription for outpatient PT to work on strengthening and ROM. We have spoken about wound care, she can shower but should not submerge the incision or apply topicals until 6 weeks out. She'll continue BID aspirin for a total of 4 weeks for DVT prophylaxis. Patient should continue to ice and elevate to help with the swelling. They may use RAINER stockings as needed. The dental and driving policy was reviewed with the patient. I'll see them back at 4 months postop with images or sooner if any issues arise. All questions answered. [email or web address] Not available 09/22/2023 08:22:51 12/14/2023 12/14/2023 ASSESSMENT: - Left hip pain, post-hip replacement. - Knee instability, post-revision surgery. - History of incisional hernia repair with mesh. PLAN: The patient will be monitored for improvement in her knee stability and gait. An MRI of the hip will be planned for March or April if there is no improvement. The patient is advised to continue with her current rehabilitation exercises to improve coordination between her quadriceps and hamstring muscles. She is informed that tenderness, swelling, and a feeling of uncoordination are expected post-surgery and may take four to six months to resolve. The patient will follow up either in person or over the phone after the MRI. She is also advised to contact the clinic if there is any significant improvement or worsening of her symptoms. [email or web address] Not available 12/14/2023 13:05:01 08/13/2024 08/13/2024 ASSESSMENT: - Right knee pain, swelling, and instability. - Left hip muscle defect post-hip replacement. PLAN: I will prescribe a prescription-stre ng topical NSAID, diclofenac 3% gel, to be applied twice a day to the affected areas. Kanchan will also be referred to physical therapy for patellar tendonitis and pes anserine bursitis. If the topical NSAID and physical therapy do not provide relief within a month, we will consider a steroid injection around the knee joint. For the left hip, an MRI will be ordered to evaluate the integrity of the medius muscle and determine the extent of the defect. We will discuss the MRI results and potential treatment options during a follow-up phone call in six weeks. FOLLOW-UP: A follow-up phone call will be scheduled in six weeks to discuss the progress of the knee treatment and the MRI results for the left hip. [email or web address] Not available 08/14/2024 20:16:51 Plan of Treatment Reminders Order Date Submit Date Provider Last Modified By Organization Details Last Modified Time Details Appointments None recorded. Lab None recorded. Referral physical therapist referral [address] [facility] Physical Therapy - [facility] [address], [address] [place] [address], [address], [place], [address], 04:56:37 Procedures None recorded. Surgeries None recorded. Imaging MRI, hip, w/o contrast 2024 025 [email or web address] 9 [facility] ([facility]), [address] [place], [address], 08:30:24 Medication Orders diclofenac 3 % topical gel 2024 025 [email or web address] [facility] [id number], [address] [facility], [place], [address], 20:44:39 Patient TargetsNo targets recorded. Patient InstructionsNo instructions recorded. Reason for Referral Physical Therapist Referral for Pes anserinus bursitis of right knee Referring Physician: Mari Cleaning, Orthopedic Surgery, Encounter Date: 08/13/2024 Results Created Date Observation Date Name Description Value Unit Range Abnormal Flag Note LastModifiedBy Organization Detail LastModifiedTime 08/22/19 24 08/22/2023 GLUF glucose fluid 90 mg/dL normal The refer ence inter colin(s ) and other metho d perfo rmanc e speci ficat ions are unava ilabl e for this body fluid . Esa rison of this resul t with the catherine ntrat ion in the blood , serum , or plasm a is recom servando d. Not Available [facility] (Lab) [address] [facility], [place], [address], 08/22/2023 10:46:49 08/22/19 24 08/22/2023 TPF total protein fluid < 2.0 g/dL normal The refer ence inter colin(s ) and other metho d perfo rmanc e speci ficat ions are unava ilabl e for this body fluid . Esa rison of this resul t with the catherine ntrat ion in the blood , serum , or plasm a is recom servando d. Not Available [facility] (Lab) [address] [facility], [place], [address], 08/22/2023 10:46:51 08/22/19 24 08/22/2023 CTF fluid type RIGHT KNEE normal Not Available [facility] (Lab) [address] [facility], [place], [address], 08/22/2023 11:31:55 08/22/19 24 08/22/2023 CTF clarity OPAQUE normal Not Availabl e [facility] (Lab) [address] [facility], [place], [address], 08/22/2023 11:31:55 08/22/19 24 08/22/2023 CTF color ORANGE normal Not Available [facility] (Lab) [address] [place], [address], 08/22/2023 11:31:55 08/22/19 24 08/22/2023 CTF WBC 530 /cumm normal Not Available [facility] (Lab) [address] [place], [address], 08/22/2023 11:31:55 08/22/19 24 08/22/2023 CTF mononuclear percent 38.3 % 18.0-4 2.0 normal Not Available [facility] (Lab) [address] [place], [address], 08/22/2023 11:31:55 08/22/19 24 08/22/2023 CTF polymorphonu clear percent 61.7 % 18.0-4 2.0 high Not Available [facility] (Lab) [address] [place], [address], 08/22/2023 11:31:55 08/22/19 24 08/22/2023 CRYSF fluid type RIGHT KNEE normal Not Available [facility] (Lab) [address] [place] [address], [address], 08/22/2023 11:31:57 08/22/19 24 08/22/2023 CRYSF crystals fluid NONE normal Not Available [facility] (Lab) [address] [facility], [place], [address], 08/22/2023 11:31:57 08/22/19 24 08/26/2023 KNEEL H @gram stain-knee SEE REPORT Not Available [facility] (Lab) [address] [place], [address], 09/07/2023 12:49:36 08/22/19 24 08/26/2023 KNEEL H @gram stain-knee SEE REPORT Not Available [facility] (Lab) [address] [place], [address], 09/07/2023 12:49:36 08/22/19 24 08/26/2023 KNEEL H @gram stain-knee Not Available [facility] (Lab) [address], [place], [address], 09/07/2023 12:49:36 08/22/1909/07/2023 KNEEL H @anaerobic/a erobic culture Test: Cultur e, Aerobi c Not Available [facility] (Lab) [address], [place], [address], 09/07/2023 12:49:36 08/22/1909/07/2023 KNEEL H @anaerobic/a erobic culture Specim en Source : Fluid Not Available [facility] (Lab) [address], [place], [address], 09/07/2023 12:49:36 08/22/1909/07/2023 KNEEL H @anaerobic/a erobic culture Specim en Type: xOther Not Available [facility] (Lab) [address], [place], [address], 09/07/2023 12:49:36 08/22/1909/07/2023 KNEEL H @anaerobic/a erobic culture Specim en Date: 9:20 AM Not Available [facility] (Lab) [address], [place], [address], 09/07/2023 12:49:36 08/22/1909/07/2023 KNEEL H @anaerobic/a erobic culture Result Date: 8:31 AM Not Available [facility] (Lab) [address] [facility], [place], [address], 09/07/2023 12:49:36 08/22/1909/07/2023 KNEEL H @anaerobic/a erobic culture Result Status : Edited Result - FINAL Not Available [facility] (Lab) [address], [place], [address], 09/07/2023 12:49:36 08/22/1909/07/2023 KNEEL H @anaerobic/a erobic culture Result ing Lab: AARON STARKS Not Available [facility] (Lab) [address] [place], [address], 09/07/2023 12:49:36 08/22/19 24 09/07/2023 KNEEL H @anaerobic/a erobic culture 262/26 4 [facility] Not Available [facility] (Lab) [address] [place], [address], 09/07/2023 12:49:36 08/22/19 24 09/07/2023 KNEEL H @anaerobic/a erobic culture Aaron ROBERT [address] Not Available [facility] (Lab) [address] [place], [address], 09/07/2023 12:49:36 08/22/19 24 09/07/2023 KNEEL H @anaerobic/a erobic culture Tel: Not Available [facility] (Lab) [address] [place], [address], 09/07/2023 12:49:36 08/22/19 24 09/07/2023 KNEEL H @anaerobic/a erobic culture Not Available [facility] (Lab) [address] [place], [address], 09/07/2023 12:49:36 08/22/19 24 09/07/2023 KNEEL H @anaerobic/a erobic culture CULTUR E Not Available [facility] (Lab) [address] [place], [address], 09/07/2023 12:49:36 08/22/19 24 09/07/2023 KNEEL H @anaerobic/a erobic culture ------ ------ ------ Not Available [facility] (Lab) [address] [place], [address], 09/07/2023 12:49:36 08/22/19 24 09/07/2023 KNEEL H @anaerobic/a erobic culture No growth , No aerobe s or anaero bes isolat ed Not Available [facility] (Lab) [address] [facility], [place], [address], 09/07/2023 12:49:36 08/22/19 24 09/07/2023 KNEEL H @anaerobic/a erobic culture STAIN Not Available [facility] (Lab) [address] [facility], [place], [address], 09/07/2023 12:49:36 08/22/19 24 09/07/2023 KNEEL H @anaerobic/a erobic culture ------ ------ ------ Not Available [facility] (Lab) [address] [facility], [place], [address], 09/07/2023 12:49:36 08/22/19 24 09/07/2023 KNEEL H @anaerobic/a erobic culture No neutro phils seen Not Available [facility] (Lab) [address] [facility], [place], [address], 09/07/2023 12:49:36 08/22/19 24 09/07/2023 KNEEL H @anaerobic/a erobic culture No organi sms seen Not Available [facility] (Lab) [address] [facility], [place], [address], 09/07/2023 12:49:36 08/22/19 24 09/07/2023 KNEEL H @anaerobic/a erobic culture * Not Available [facility] (Lab) [address] [facility], [place], [address], 09/07/2023 12:49:36 08/22/19 24 09/07/2023 KNEEL H @anaerobic/a erobic culture * This is a correc rainer result . * Not Available [facility] (Lab) [address], [place], [address], 09/07/2023 12:49:36 08/22/19 24 09/07/2023 KNEEL H @anaerobic/a erobic culture * Not Available [facility] (Lab) [address], [place], [address], 09/07/2023 12:49:36 08/22/19 24 09/07/2023 KNEEL H @anaerobic/a erobic culture A prior result that was report ed as final has been change d. Not Available [facility] (Lab) [address], [place], [address], 09/07/2023 12:49:36 08/22/19 24 09/07/2023 KNEEL H @anaerobic/a erobic culture * Not Available [facility] (Lab) [address], [place], [address], 09/07/2023 12:49:36 08/22/19 24 09/07/2023 KNEEL H @anaerobic/a erobic culture * This is a correc rainer result . * Not Available [facility] (Lab) [address], [place], [address], 09/07/2023 12:49:36 08/22/19 24 09/07/2023 KNEEL H @anaerobic/a erobic culture * Not Available [facility] (Lab) [address], [place], [address], 09/07/2023 12:49:36 08/22/19 24 09/07/2023 KNEEL H @anaerobic/a erobic culture A prior result that was report ed as final has been change d. Not Available [facility] (Lab) [address], [place], [address], 09/07/2023 12:49:36 08/22/19 24 09/07/2023 KNEEL H @anaerobic/a erobic culture Not Available [facility] (Lab) [address], [place], [address], 09/07/2023 12:49:36 08/22/19 24 08/26/2023 KNEEL H @gram stain-knee SEE REPORT Not Available [facility] (Lab) [address], [place], [address], 08/26/2023 08:22:36 08/22/19 24 08/26/2023 KNEEL H @gram stain-knee SEE REPORT Not Available [facility] (Lab) [address], [place], [address], 08/26/2023 08:22:36 08/22/19 24 08/26/2023 KNEEL H @gram stain-knee Not Available [facility] (Lab) [address], [place], [address], 08/26/2023 08:22:36 08/22/19 24 08/26/2023 KNEEL H @anaerobic/a erobic culture Test: Cultur e, Aerobi c Not Available [facility] (Lab) [address], [place], [address], 08/26/2023 08:22:36 08/22/19 24 08/26/2023 KNEEL H @anaerobic/a erobic culture Specim en Source : Fluid Not Available [facility] (Lab) [address], [place], [address], 08/26/2023 08:22:36 08/22/19 24 08/26/2023 KNEEL H @anaerobic/a erobic culture Specim en Type: xOther Not Available [facility] (Lab) [address] [facility], [place], [address], 08/26/2023 08:22:36 08/22/19 24 08/26/2023 KNEEL H @anaerobic/a erobic culture Specim en Date: 9:20 AM Not Available [facility] (Lab) [address] [facility], [place], [address], 08/26/2023 08:22:36 08/22/19 24 08/26/2023 KNEEL H @anaerobic/a erobic culture Result Date: 8:22 AM Not Available [facility] (Lab) [address] [facility], [place], [address], 08/26/2023 08:22:36 08/22/19 24 08/26/2023 KNEEL H @anaerobic/a erobic culture Result Status : Final result Not Available [facility] (Lab) [address] [facility], [place], [address], 08/26/2023 08:22:36 08/22/19 24 08/26/2023 KNEEL H @anaerobic/a erobic culture Result ing Lab: AARON STARKS Not Available [facility] (Lab) [address] [facility], [place], [address], 08/26/2023 08:22:36 08/22/19 24 08/26/2023 KNEEL H @anaerobic/a erobic [facility] (Lab) [address] [place], [address], 08/26/2023 08:22:36 08/22/19 24 08/26/2023 KNEEL H @anaerobic/a erobic culture Aaron ROBERT [address] Not Available [facility] (Lab) [address] [place], [address], 08/26/2023 08:22:36 08/22/19 24 08/26/2023 KNEEL H @anaerobic/a erobic culture Tel: Not Available [facility] (Lab) [address] [facility], [place], [address], 08/26/2023 08:22:36 08/22/19 24 08/26/2023 KNEEL H @anaerobic/a erobic culture Not Available [facility] (Lab) [address] [place], [address], 08/26/2023 08:22:36 08/22/19 24 08/26/2023 KNEEL H @anaerobic/a erobic culture CULTUR E Not Available [facility] (Lab) [address] [facility], [place], [address], 08/26/2023 08:22:36 08/22/19 24 08/26/2023 KNEEL H @anaerobic/a erobic culture ------ ------ ------ Not Available [facility] (Lab) [address] [facility], [place], [address], 08/26/2023 08:22:36 08/22/19 24 08/26/2023 KNEEL H @anaerobic/a erobic culture No growth Not Available [facility] (Lab) [address] [place], [address], 08/26/2023 08:22:36 08/22/19 24 08/26/2023 KNEEL H @anaerobic/a erobic culture STAIN Not Available [facility] (Lab) [address] [place], [address], 08/26/2023 08:22:36 08/22/19 24 08/26/2023 KNEEL H @anaerobic/a erobic culture ------ ------ ------ Not Available [facility] (Lab) [address] [facility], [place], [address], 08/26/2023 08:22:36 08/22/19 24 08/26/2023 KNEEL H @anaerobic/a erobic culture No neutro phils seen Not Available [facility] (Lab) [address] [facility], [place], [address], 08/26/2023 08:22:36 08/22/19 24 08/26/2023 KNEEL H @anaerobic/a erobic culture No organi sms seen Not Available [facility] (Lab) [address] [facility], [place], [address], 08/26/2023 08:22:36 08/22/19 24 08/26/2023 KNEEL H @anaerobic/a erobic culture Not Available [facility] (Lab) [address] [facility], [place], [address], 08/26/2023 08:22:36 08/22/19 24 08/26/2023 KNEEL H @gram stain-knee SEE REPORT Not Available [facility] (Lab) [address] [facility], [place], [address], 08/26/2023 08:31:39 08/22/19 24 08/26/2023 KNEEL H @gram stain-knee SEE REPORT Not Available [facility] (Lab) [address] [facility], [place], [address], 08/26/2023 08:31:39 08/22/19 24 08/26/2023 KNEEL H @gram stain-knee Not Available [facility] (Lab) [address] [facility], [place], [address], 08/26/2023 08:31:39 08/22/19 24 08/26/2023 KNEEL H @anaerobic/a erobic culture Test: Cultur e, Aerobi c Not Available [facility] (Lab) [address] [facility], [place], [address], 08/26/2023 08:31:39 08/22/19 24 08/26/2023 KNEEL H @anaerobic/a erobic culture Specim en Source : Fluid Not Available [facility] (Lab) [address] [facility], [place], [address], 08/26/2023 08:31:39 08/22/19 24 08/26/2023 KNEEL H @anaerobic/a erobic culture Specim en Type: xOther Not Available [facility] (Lab) [address] [facility], [place], [address], 08/26/2023 08:31:39 08/22/19 24 08/26/2023 KNEEL H @anaerobic/a erobic culture Specim en Date: 9:20 AM Not Available [facility] (Lab) [address] [place], [address], 08/26/2023 08:31:39 08/22/19 24 08/26/2023 KNEEL H @anaerobic/a erobic culture Result Date: 8:31 AM Not Available [facility] (Lab) [address] [facility], [place], [address], 08/26/2023 08:31:39 08/22/1908/26/2023 KNEEL H @anaerobic/a erobic culture Result Status : Edited Result - FINAL Not Available [facility] (Lab) [address] [place], [address], 08/26/2023 08:31:39 08/22/19 24 08/26/2023 KNEEL H @anaerobic/a erobic culture Result ing Lab: AARON STARKS Not Available [facility] (Lab) [address] [place], [address], 08/26/2023 08:31:39 08/22/19 24 08/26/2023 KNEEL H @anaerobic/a erobic culture 4 [facility] Not Available [facility] (Lab) [address] [facility] [address], [place], [address], 08/26/2023 08:31:39 08/22/19 24 08/26/2023 KNEEL H @anaerobic/a erobic culture Aaron ROBERT [address] Not Available [facility] (Lab) [address] [facility], [place], [address], 08/26/2023 08:31:39 08/22/19 24 08/26/2023 KNEEL H @anaerobic/a erobic culture Tel: Not Available [facility] (Lab) [address] [facility], [place], [address], 08/26/2023 08:31:39 08/22/19 24 08/26/2023 KNEEL H @anaerobic/a erobic culture Not Available [facility] (Lab) [address] [facility], [place], [address], 08/26/2023 08:31:39 08/22/19 24 08/26/2023 KNEEL H @anaerobic/a erobic culture CULTUR E Not Available [facility] (Lab) [address] [facility], [place], [address], 08/26/2023 08:31:39 08/22/19 24 08/26/2023 KNEEL H @anaerobic/a erobic culture ------ ------ ------ Not Available [facility] (Lab) [address] [facility], [place], [address], 08/26/2023 08:31:39 08/22/19 24 08/26/2023 KNEEL H @anaerobic/a erobic culture No growth , No aerobe s or anaero bes isolat ed Not Available [facility] (Lab) [address] [facility], [place], [address], 08/26/2023 08:31:39 08/22/19 24 08/26/2023 KNEEL H @anaerobic/a erobic culture STAIN Not Available [facility] (Lab) [address] [facility], [place], [address], 08/26/2023 08:31:39 08/22/19 24 08/26/2023 KNEEL H @anaerobic/a erobic culture ------ ------ ------ Not Available [facility] (Lab) [address] [facility], [place], [address], 08/26/2023 08:31:39 08/22/19 24 08/26/2023 KNEEL H @anaerobic/a erobic culture No neutro phils seen Not Available [facility] (Lab) [address] [facility], [place], [address], 08/26/2023 08:31:39 08/22/19 24 08/26/2023 KNEEL H @anaerobic/a erobic culture No organi sms seen Not Available [facility] (Lab) [address] [facility], [place], [address], 08/26/2023 08:31:39 08/22/19 24 08/26/2023 KNEEL H @anaerobic/a erobic culture * Not Available [facility] (Lab) [address] [facility], [place], [address], 08/26/2023 08:31:39 08/22/19 24 08/26/2023 KNEEL H @anaerobic/a erobic culture * This is a correc rainer result . * Not Available [facility] (Lab) [address] [facility], [place], [address], 08/26/2023 08:31:39 08/22/19 24 08/26/2023 KNEEL H @anaerobic/a erobic culture * Not Available [facility] (Lab) [address] [facility], [place], [address], 08/26/2023 08:31:39 08/22/19 24 08/26/2023 KNEEL H @anaerobic/a erobic culture A prior result that was report ed as final has been change d. Not Available [facility] (Lab) [address] [place], [address], 08/26/2023 08:31:39 08/22/19 24 08/26/2023 KNEEL H @anaerobic/a erobic culture Not Available [facility] (Lab) [address] [place], [address], 08/26/2023 08:31:39 08/22/19 24 08/23/2023 KNEEL H @gram stain-knee SEE REPORT Not Available [facility] (Lab) [address] [place], [address], 08/25/2023 13:32:30 08/22/19 24 08/23/2023 KNEEL H @gram stain-knee SEE REPORT Not Available [facility] (Lab) [address] [place], [address], 08/25/2023 13:32:30 08/22/19 24 08/23/2023 KNEEL H @gram stain-knee Not Available [facility] (Lab) [address] [place], [address], 08/25/2023 13:32:30 08/22/19 24 08/25/2023 KNEEL H @anaerobic/a erobic culture Test: Cultur e, Aerobi c Not Available [facility] (Lab) [address] [facility], [place], [address], 08/25/2023 13:32:30 08/22/19 24 08/25/2023 KNEEL H @anaerobic/a erobic culture Specim en Source : Fluid Not Available [facility] (Lab) [address] [facility], [place], [address], 08/25/2023 13:32:30 08/22/19 24 08/25/2023 KNEEL H @anaerobic/a erobic culture Specim en Type: xOther Not Available [facility] (Lab) [address] [facility], [place], [address], 08/25/2023 13:32:30 08/22/19 24 08/25/2023 KNEEL H @anaerobic/a erobic culture Specim en Date: 9:20 AM Not Available [facility] (Lab) [address] [facility], [place], [address], 08/25/2023 13:32:30 08/22/19 24 08/25/2023 KNEEL H @anaerobic/a erobic culture Result Date: 1:32 PM Not Available [facility] (Lab) [address] [facility], [place], [address], 08/25/2023 13:32:30 08/22/19 24 08/25/2023 KNEEL H @anaerobic/a erobic culture Result Status : Prelim inary result Not Available [facility] (Lab) [address] [facility], [place], [address], 08/25/2023 13:32:30 08/22/19 24 08/25/2023 KNEEL H @anaerobic/a erobic culture Result ing Lab: AARON STARKS Not Available [facility] (Lab) [address] [facility], [place], [address], 08/25/2023 13:32:30 08/22/19 24 08/25/2023 KNEEL H @anaerobic/a erobic culture 262/ 4 [facility] Not Available [facility] (Lab) [address] [facility], [place], [address], 08/25/2023 13:32:30 08/22/19 24 08/25/2023 KNEEL H @anaerobic/a erobic culture Aaron ROBERT [address] Not Available [facility] (Lab) [address] [place], [address], 08/25/2023 13:32:30 08/22/19 24 08/25/2023 KNEEL H @anaerobic/a erobic culture Tel: Not Available [facility] (Lab) [address] [facility], [place], [address], 08/25/2023 13:32:30 08/22/19 24 08/25/2023 KNEEL H @anaerobic/a erobic culture Not Available [facility] (Lab) [address] [facility], [place], [address], 08/25/2023 13:32:30 08/22/19 24 08/25/2023 KNEEL H @anaerobic/a erobic culture CULTUR E Not Available [facility] (Lab) [address] [facility], [place], [address], 08/25/2023 13:32:30 08/22/19 24 08/25/2023 KNEEL H @anaerobic/a erobic culture ------ ------ ------ Not Available [facility] (Lab) [address] [facility], [place], [address], 08/25/2023 13:32:30 08/22/19 24 08/25/2023 KNEEL H @anaerobic/a erobic culture No growth Not Available [facility] (Lab) [address] [place], [address], 08/25/2023 13:32:30 08/22/19 24 08/25/2023 KNEEL H @anaerobic/a erobic culture STAIN Not Available [facility] (Lab) [address] [facility], [place], [address], 08/25/2023 13:32:30 08/22/19 24 08/25/2023 KNEEL H @anaerobic/a erobic culture ------ ------ ------ Not Available [facility] (Lab) [address] [facility], [place], [address], 08/25/2023 13:32:30 08/22/19 24 08/25/2023 KNEEL H @anaerobic/a erobic culture No neutro phils seen Not Available [facility] (Lab) [address] [facility], [place], [address], 08/25/2023 13:32:30 08/22/19 24 08/25/2023 KNEEL H @anaerobic/a erobic culture No organi sms seen Not Available [facility] (Lab) [address] [facility], [place], [address], 08/25/2023 13:32:30 08/22/19 24 08/25/2023 KNEEL H @anaerobic/a erobic culture Not Available [facility] (Lab) [address] [facility], [place], [address], 08/25/2023 13:32:30 08/22/19 24 08/23/2023 KNEEL H @gram stain-knee SEE REPORT Not Available [facility] (Lab) [address] [facility], [place], [address], 08/24/2023 11:26:56 08/22/19 24 08/23/2023 KNEEL H @gram stain-knee SEE REPORT Not Available [facility] (Lab) [address] [place], [address], 08/24/2023 11:26:56 08/22/19 24 08/23/2023 KNEEL H @gram stain-knee Not Available [facility] (Lab) [address] [facility], [place], [address], 08/24/2023 11:26:56 08/22/19 24 08/24/2023 KNEEL H @anaerobic/a erobic culture Test: Cultur e, Aerobi c Not Available [facility] (Lab) [address] [facility], [place], [address], 08/24/2023 11:26:56 08/22/1908/24/2023 KNEEL H @anaerobic/a erobic culture Specim en Source : Fluid Not Available [facility] (Lab) [address] [facility], [place], [address], 08/24/2023 11:26:56 08/22/19 24 08/24/2023 KNEEL H @anaerobic/a erobic culture Specim en Type: xOther Not Available [facility] (Lab) [address] [facility], [place], [address], 08/24/2023 11:26:56 08/22/19 24 08/24/2023 KNEEL H @anaerobic/a erobic culture Specim en Date: 9:20 AM Not Available [facility] (Lab) [address] [facility], [place], [address], 08/24/2023 11:26:56 08/22/19 24 08/24/2023 KNEEL H @anaerobic/a erobic culture Result Date: 11:26 AM Not Available [facility] (Lab) [address] [place], [address], 08/24/2023 11:26:56 08/22/19 24 08/24/2023 KNEEL H @anaerobic/a erobic culture Result Status : Prelim inary result Not Available [facility] (Lab) [address] [place], [address], 08/24/2023 11:26:56 08/22/19 24 08/24/2023 KNEEL H @anaerobic/a erobic culture Result ing Lab: AARON STARKS Not Available [facility] (Lab) [address] [facility], [place], [address], 08/24/2023 11:26:56 08/22/19 24 08/24/2023 KNEEL H @anaerobic/a erobic culture / 4 [facility] Not Available [facility] (Lab) [address] [place], [address], 08/24/2023 11:26:56 08/22/19 24 08/24/2023 KNEEL H @anaerobic/a erobic culture [place] YESICA [address] Not Available [facility] (Lab) [address] [place], [address], 08/24/2023 11:26:56 08/22/19 24 08/24/2023 KNEEL H @anaerobic/a erobic culture Tel: Not Available [facility] (Lab) [address] [place], [address], 08/24/2023 11:26:56 08/22/19 24 08/24/2023 KNEEL H @anaerobic/a erobic culture Not Available [facility] (Lab) [address] [facility], [place], [address], 08/24/2023 11:26:56 08/22/19 24 08/24/2023 KNEEL H @anaerobic/a erobic culture CULTUR E Not Available [facility] (Lab) [address] [place], [address], 08/24/2023 11:26:56 08/22/19 24 08/24/2023 KNEEL H @anaerobic/a erobic culture ------ ------ ------ Not Available [facility] (Lab) [address] [place], [address], 08/24/2023 11:26:56 08/22/19 24 08/24/2023 KNEEL H @anaerobic/a erobic culture No growth Not Available [facility] (Lab) [address] [place], [address], 08/24/2023 11:26:56 08/22/1908/24/2023 KNEEL H @anaerobic/a erobic culture STAIN Not Available [facility] (Lab) [address] [place], [address], 08/24/2023 11:26:56 08/22/1908/24/2023 KNEEL H @anaerobic/a erobic culture ------ ------ ------ Not Available [facility] (Lab) [address] [facility], [place], [address], 08/24/2023 11:26:56 08/22/19 24 08/24/2023 KNEEL H @anaerobic/a erobic culture No neutro phils seen Not Available [facility] (Lab) [address] [facility], [place], [address], 08/24/2023 11:26:56 08/22/1908/24/2023 KNEEL H @anaerobic/a erobic culture No organi sms seen Not Available [facility] (Lab) [address] [place], [address], 08/24/2023 11:26:56 08/22/19 24 08/24/2023 KNEEL H @anaerobic/a erobic culture Not Available [facility] (Lab) [address] [facility], [place], [address], 08/24/2023 11:26:56 08/22/19 24 08/23/2023 KNEEL H @gram stain-knee SEE REPORT Not Available [facility] (Lab) [address] [place], [address], 08/23/2023 13:23:33 08/22/19 24 08/23/2023 KNEEL H @gram stain-knee SEE REPORT Not Available [facility] (Lab) [address] [facility], [place], [address], 08/23/2023 13:23:33 08/22/19 24 08/23/2023 KNEEL H @gram stain-knee Not Available [facility] (Lab) [address] [facility], [place], [address], 08/23/2023 13:23:33 08/22/19 24 08/23/2023 KNEEL H @anaerobic/a erobic culture Test: Cultur e, Aerobi c Not Available [facility] (Lab) [address] [facility], [place], [address], 08/23/2023 13:23:33 08/22/19 24 08/23/2023 KNEEL H @anaerobic/a erobic culture Specim en Source : Fluid Not Available [facility] (Lab) [address] [facility], [place], [address], 08/23/2023 13:23:33 08/22/19 24 08/23/2023 KNEEL H @anaerobic/a erobic culture Specim en Type: xOther Not Available [facility] (Lab) [address] [facility], [place], [address], 08/23/2023 13:23:33 08/22/19 24 08/23/2023 KNEEL H @anaerobic/a erobic culture Specim en Date: 024 9:20 AM Not Available [facility] (Lab) [address] [facility], [place], [address], 08/23/2023 13:23:33 08/22/19 24 08/23/2023 KNEEL H @anaerobic/a erobic culture Result Date: 024 1:23 PM Not Available [facility] (Lab) [address] [place], [address], 08/23/2023 13:23:33 08/22/19 24 08/23/2023 KNEEL H @anaerobic/a erobic culture Result Status : Prelim inary result Not Available [facility] (Lab) [address] [place], [address], 08/23/2023 13:23:33 08/22/19 24 08/23/2023 KNEEL H @anaerobic/a erobic culture Result ing Lab: AARON STARKS Not Available [facility] (Lab) [address] [place], [address], 08/23/2023 13:23:33 08/22/19 24 08/23/2023 KNEEL H @anaerobic/a erobic culture 262/26 4 [facility] Not Available [facility] (Lab) [address] [place], [address], 08/23/2023 13:23:33 08/22/19 24 08/23/2023 KNEEL H @anaerobic/a erobic culture Aaron ROBERT [address] Not Available [facility] (Lab) [address] [place], [address], 08/23/2023 13:23:33 08/22/19 24 08/23/2023 KNEEL H @anaerobic/a erobic culture Tel: Not Available [facility] (Lab) [address] [place], [address], 08/23/2023 13:23:33 08/22/19 24 08/23/2023 KNEEL H @anaerobic/a erobic culture Not Available [facility] (Lab) [address] [facility], [place], [address], 08/23/2023 13:23:33 08/22/19 24 08/23/2023 KNEEL H @anaerobic/a erobic culture CULTUR E Not Available [facility] (Lab) [address] [facility], [place], [address], 08/23/2023 13:23:33 08/22/19 24 08/23/2023 KNEEL H @anaerobic/a erobic culture ------ ------ ------ Not Available [facility] (Lab) [address] [facility], [place], [address], 08/23/2023 13:23:33 08/22/19 24 08/23/2023 KNEEL H @anaerobic/a erobic culture No growth Not Available [facility] (Lab) [address] [facility], [place], [address], 08/23/2023 13:23:33 08/22/19 24 08/23/2023 KNEEL H @anaerobic/a erobic culture STAIN Not Available [facility] (Lab) [address] [facility], [place], [address], 08/23/2023 13:23:33 08/22/19 24 08/23/2023 KNEEL H @anaerobic/a erobic culture ------ ------ ------ Not Available [facility] (Lab) [address] [facility], [place], [address], 08/23/2023 13:23:33 08/22/19 24 08/23/2023 KNEEL H @anaerobic/a erobic culture No neutro phils seen Not Available [facility] (Lab) [address] [facility], [place], [address], 08/23/2023 13:23:33 08/22/19 24 08/23/2023 KNEEL H @anaerobic/a erobic culture No organi sms seen Not Available [facility] (Lab) [address], [place], [address], 08/23/2023 13:23:33 08/22/19 24 08/23/2023 KNEEL H @anaerobic/a erobic culture Not Available [facility] (Lab) [address], [place], [address], 08/23/2023 13:23:33 08/22/19 24 08/22/2023 KNEEL H @gram stain-knee Test: Cultur e, Aerobi c Not Available [facility] (Lab) [address], [place], [address], 08/22/2023 17:46:42 08/22/19 24 08/22/2023 KNEEL H @gram stain-knee Specim en Source : Fluid Not Available [facility] (Lab) [address], [place], [address], 08/22/2023 17:46:42 08/22/19 24 08/22/2023 KNEEL H @gram stain-knee Specim en Type: xOther Not Available [facility] (Lab) [address], [place], [address], 08/22/2023 17:46:42 08/22/19 24 08/22/2023 KNEEL H @gram stain-knee Specim en Date: 9:20 AM Not Available [facility] (Lab) [address], [place], [address], 08/22/2023 17:46:42 08/22/19 24 08/22/2023 KNEEL H @gram stain-knee Result Date: 5:46 PM Not Available [facility] (Lab) [address], [place], [address], 08/22/2023 17:46:42 08/22/19 24 08/22/2023 KNEEL H @gram stain-knee Result Status : Prelim inary result Not Available [facility] (Lab) [address], [place], [address], 08/22/2023 17:46:42 08/22/19 24 08/22/2023 KNEEL H @gram stain-knee Result ing Lab: WOGODFREY STARKS Not Available [facility] (Lab) [address] [facility], [place], [address], 08/22/2023 17:46:42 08/22/19 24 08/22/2023 KNEEL H @gram stain-knee / 4 [facility] Not Available [facility] (Lab) [address] [facility], [place], [address], 08/22/2023 17:46:42 08/22/19 24 08/22/2023 KNEEL H @gram stain-knee Aaron ROBERT [address] Not Available [facility] (Lab) [address] [facility], [place], [address], 08/22/2023 17:46:42 08/22/19 24 08/22/2023 KNEEL H @gram stain-knee Tel: Not Available [facility] (Lab) [address], [place], [address], 08/22/2023 17:46:42 08/22/19 24 08/22/2023 KNEEL H @gram stain-knee Not Available [facility] (Lab) [address] [facility], [place], [address], 08/22/2023 17:46:42 08/22/19 24 08/22/2023 KNEEL H @gram stain-knee STAIN Not Available [facility] (Lab) [address] [facility], [place], [address], 08/22/2023 17:46:42 08/22/19 24 08/22/2023 KNEEL H @gram stain-knee ------ ------ ------ Not Available [facility] (Lab) [address] [facility], [place], [address], 08/22/2023 17:46:42 08/22/19 24 08/22/2023 KNEEL H @gram stain-knee No neutro phils seen Not Available [facility] (Lab) [address] [place], [address], 08/22/2023 17:46:42 08/22/19 24 08/22/2023 KNEEL H @gram stain-knee No organi sms seen Not Available [facility] (Lab) [address] [place], [address], 08/22/2023 17:46:42 08/22/19 24 08/22/2023 KNEEL H @gram stain-knee SEE REPORT Not Available [facility] (Lab) [address] [place], [address], 08/22/2023 17:46:42 08/22/19 24 08/22/2023 KNEEL H @gram stain-knee Not Available [facility] (Lab) [address] [place], [address], 08/22/2023 17:46:42 08/26/19 24 08/26/2023 SURG surgical specimens Case No :[id number] Patie nt: Duc ARCHULETA SERENE Physi dary: Katie harding MD,An kobi J Med Rec: [id number] : 10/01 Loc: 5E 435 Age/S ex: 67/F Proc Date: 08/25 Recd Date: 08/25 CLINI JOSE CRUZ HISTO RY:Ri ght total knee arthr oplas ty insta bilit y. Tissu e Sourc e: Right knee - TISSU E AND HARDW ARE ----- ----- ----- ----- ----- ----- ----- ----- ----- ----- ----- ----- ----- ----- ----- ----- ----- ----- -- FINAL DIAGN OSIS Rigbruna t knee joint : Soft tissu es and synov ium with degen eramari londono es. Exami naito n perfo rmed given jay nt's histo ry of melan jake. No mag huff ident ified . ----- ----- ----- ----- ----- ----- ----- ----- ----- ----- ----- ----- ----- ----- ----- ----- ----- ----- -- GROSS DESCR IPTIO N The speci men is recei aditi fresh , label ed with the almae nt's name and righ t knee tissu e and hardw are . It consi sts of multi ple pink romero, soft tissu e fragm ents measu ring 10 x 6.3 x 1.8 [address] gate. Noted throu ghout is green /brow n disco lorat ion with no nodul es gross ly ident ified . Also recei aditi is a thin metal lic wire measu ring 2 cm in lengt h and a polye thyle ne tibia l liner with the ident ifica tion numbe rs [id number] -[id number] . Repre senta tive soft tissu es are submi tted in one casse tte. Sindhu petersen ___(E lectr frederick petersen)___ _ LATONYA LYLE 08/29 ----- ----- ----- ----- ----- ----- ----- ----- ----- ----- ----- ----- ----- ----- ----- ----- ----- ----- -- END OF REPOR T Not Available [facility] (Lab) [address] [facility], [place], [address], 08/30/2023 18:11:14 08/26/19 24 08/26/2023 TSA patient type interpretati on(E) O POSITI VE normal Not Available [facility] (Lab) [address] [facility], [place], [address], 08/26/2023 11:41:23 08/26/19 24 08/26/2023 TSA antibody screen auto/capture NEGATI VE normal Not Available [facility] (Lab) [address] [facility], [place], [address], 08/26/2023 11:41:23 08/26/19 24 08/26/2023 TSA screen cell 1 - normal Not Available [facility] (Lab) [address] [facility], [place], [address], 08/26/2023 11:41:23 08/26/19 24 08/26/2023 TSA screen cell 2 - normal Not Available [facility] (Lab) [address] [facility], [place], [address], 08/26/2023 11:41:23 08/26/19 24 08/26/2023 TSA screen cell 3 - normal Not Available [facility] (Lab) [address] [place], [address], 08/26/2023 11:41:23 08/26/19 24 08/26/2023 TSA patient type interpretati on(E) O POSITI VE normal Not Available [facility] (Lab) [address] [place], [address], 08/26/2023 11:41:02 08/26/19 24 08/26/2023 TSA antibody screen auto/capture NEGATI VE normal Not Available [facility] (Lab) [address] [place], [address], 08/26/2023 11:41:02 08/26/19 24 08/26/2023 TSA screen cell 1 - normal Not Available [facility] (Lab) [address] [place], [address], 08/26/2023 11:41:02 08/26/19 24 08/26/2023 TSA screen cell 2 - normal Not Available [facility] (Lab) [address] [place], [address], 08/26/2023 11:41:02 08/26/19 24 08/26/2023 TSA screen cell 3 - normal Not Available [facility] (Lab) [address] [place] [address], [address], 08/26/2023 11:41:02 08/27/19 24 08/27/2023 CBC white blood count 10.40 K/uL 4.0-11 .0 normal Not Available [facility] (Lab) [address] [place], [address], 08/27/2023 10:06:58 08/27/19 24 08/27/2023 CBC red blood count 3.45 M/uL 3.60-5 .30 low Not Available [facility] (Lab) [address] [place], [address], 08/27/2023 10:06:58 08/27/19 24 08/27/2023 CBC hemoglobin 10.2 g/dL 12.0-1 6.0 low Not Available [facility] (Lab) [address] [place], [address], 08/27/2023 10:06:58 08/27/19 24 08/27/2023 CBC hematocrit 31.4 % 36.0-4 8.0 low Not Available [facility] (Lab) [address] [place], [address], 08/27/2023 10:06:58 08/27/19 24 08/27/2023 CBC MCV 91.0 fL 80.0-9 8.0 normal Not Available [facility] (Lab) [address] [place], [address], 08/27/2023 10:06:58 08/27/19 24 08/27/2023 CBC MCH 29.6 pg 27.0-3 4.0 normal Not Available [facility] (Lab) [address] [place], [address], 08/27/2023 10:06:58 08/27/19 24 08/27/2023 CBC MCHC 32.5 g/dL 31.0-3 6.0 normal Not Available [facility] (Lab) [address] [place], [address], 08/27/2023 10:06:58 08/27/19 24 08/27/2023 CBC platelet 258 K/uL 150-40 0 normal Not Available [facility] (Lab) [address] [place], [address], 08/27/2023 10:06:58 08/27/19 24 08/27/2023 CBC RDW-CV 14.8 % 11.5-1 4.5 high Not Available [facility] (Lab) [address] [place], [address], 08/27/2023 10:06:58 08/27/19 24 08/27/2023 CBC nucleated absolute value 0.00 K/uL normal Not Available [facility] (Lab) [address] [place], [address], 08/27/2023 10:06:58 08/27/19 24 08/27/2023 NA sodium 138 mmol/ L 135-14 5 normal Not Available [facility] (Lab) [address] [place], [address], 08/27/2023 10:15:10 08/27/19 24 08/27/2023 K potassium 4.4 mmol/ L 3.5-5. 3 normal Not Available [facility] (Lab) [address] [place], [address], 08/27/2023 10:15:11 08/27/19 24 08/27/2023 BUN BUN 20 mg/dL 6-20 normal Not Available [facility] (Lab) [address] [place], [address], 08/27/2023 10:15:11 08/27/19 24 08/27/2023 CR creatinine 1.1 mg/dL 0.0-1. 3 normal Not Available [facility] (Lab) [address] [place], [address], 08/27/2023 10:15:12 08/27/19 24 08/27/2023 MG magnesium 1.8 mg/dL 1.6-2. 6 normal Not Available [facility] (Lab) [address] [place], [address], 08/27/2023 10:15:13 08/10/19 24 08/10/2023 XR, knee, 1 or 2 view Fin al Report EXAM#: [id number] PROCED URE: DXR 0099 XR KNEE RIGHT 2 VIEWS Aug 10 2023 3:14PM CLINIC AL INDICA TION: PAIN IN RIGHT KNEE There is a right TKA in place with liz roca resurf merline whose prosth etic elewoody ts are in anatom ic alignm ent withou t radiog raphic eviden ce of loosen ing. Degene rative change s are presen t in the left knee with narrow ing of the medial joint compar tment space. NUMBER OF IMAGES : 2 Report ed by : SHAYNE SAVAGE M.D. On: Aug 10 2023 3:16P Signed by: SHAYNE SAVAGE M.D. On: Aug 10 2023 3:16P [email or web address] [facility] [address] [place], [address], 08/10/2023 15:23:44 08/10/19 24 08/10/2023 xr knees AP stand ing bilat 1 vw Fin al Report EXAM#: [id number] PROCED URE: DXR 0109 XR KNEES STANDI NG BILAT Aug 10 2023 3:14PM CLINIC AL INDICA TION: PAIN IN RIGHT KNEE There is a right TKA in place with liz roca resurf acing whose prosth etic elemen ts are in anatom ic alignm ent withou t radiog raphic eviden ce of loosen ing. Degene rative change s are presen t in the left knee with narrow ing of the medial joint compar tment space. NUMBER OF IMAGES : 2 Report ed by : SHAYNE SAVAGE M.D. On: Aug 10 2023 3:16P Signed by: SHAYNE SAVAGE M.D. On: Aug 10 2023 3:16P [email or web address] [facility] [address] [facility], [place], [address], 08/10/2023 15:23:44 08/22/19 24 08/22/2023 aspir ation knee- right Fin al Report EXAM#: [id number] PROCED URE: RFL 0165 ASPIRA TION KNEE-R IGHT Aug 22 2023 9:27AM CLINIC AL INDICA TION: M25.36 1 DOSE: 0.007 mGy KNEE ASPIRA TION INDICA TION: M25.36 1 right knee pain. TKR. FLUORO SCOPY TIME: 0.0 MINUTE FINDIN GS: Inform ed consen t was obtain ed and time-o ut perfor med. The right knee was preppe d and draped per standa rd steril e protoc ol. Lidoca ine 1% was used for local anesth esia. Under fluoro scopic guidan ce, a needle was placed into the knee joint capsul e. Spot films confir m needle locali zation and demons trate right TKR in place. 9CC transl ucent RANDI FLUID fluid was aspira rainer. The patien t tolera rainer the proced ure well. No immedi ate compli cation s. The specim en was sent to the lab for gram stain and cultur e. Cell count with differ ential , protei n, glucos e and joanie ls were also reques rainer. IMPRES ALEIDA: Succes sful right knee aspira tion with specim ens sent for labora torguera analys is. NUMBER OF IMAGES : 1+D Report ed by : MARITZA LORENZ M.D. On: Aug 22 2023 10:10A Signed by: MARITZA LORENZ M.D. On: Aug 22 2023 10:10A [email or web address] [facility] [address] [place], [address], 08/22/2023 11:31:12 08/30/19 24 08/29/2023 XR, knee, 1 or 2 view Fin al Report EXAM#: [id number] PROCED URE: OR 0027 XR PORTAB LE KNEE RIGHT 1-2 VIEWS Aug 29 2023 6:55PM CLINIC AL INDICA TION: CHECK HARDWA RE FINDIN GS: Portab le fronta l and latera l right knee radiog raphs at 1955 and 1957 hours respec tively on 024 are submit rainer demons tratin g a constr ained type total knee arthro plasty in place withou t eviden t hardwa re compli cation or malali gnment . There is region al postop erativ e soft tissue swelli ng and gas. NUMBER OF IMAGES : 2 Report ed by : VERA MONTENEGRO M.D. On: Aug 30 2023 8:39A Signed by: VERA ARTEAGA M.D. On: Aug 30 2023 8:39A [email or web address] [facility] [address] [place], [address], 08/30/2023 08:43:58 12/14/19 24 12/14/2023 XR, knee, 1 or 2 view [place] [facility] Pt Name : JONE DOSS 1 - Date: 1955 Sex: F Locati on : [facility] ALLIED DXRAD Visit: [id number] Admit Date: 2023 Date of Servic e: 2023 Exam : XR KNEE 2 VW RIGHT Status : Final Order MD : RUTH MORALEZ Ord Tel#:[phone] CC Provid er:, ------ ------ ------ ------ ------ ------ ------ ------ ------ ------ ------ ------ ------ - INDICA TION: Right knee pain. Findharinder gs: Standi ng AP view of the bilate ral knees and latera l and sunris e views of the right knee demons trate constr ained type right total knee arthro plasty with patell ar resurf acing. No eviden ce of hardwa re compli cation or malali gnment . Small joint effusi on. Single AP view of the left knee demons trates mild medial tibiof emoral joint space narrow ing. No osseou s lesion or soft tissue abnorm ality. REPORT SIGNED BY: KEON BROWN 12:41: 59 [facility] - Rad [address] [facility], [place], [address], 12/16/2023 13:42:35 12/14/19 24 12/14/2023 XR, knee, weigh tbear ing [facility] [employer] Pt Name : JONE DOSS 1 - Date: 1955 Sex: F Locati on : [facility] ALLIED DXRAD Visit: [id number] Admit Date: 2023 Date of Servic e: 2023 Exam : XR KNEE AP STANDI NG BILATE RAL Status : Final Order MD : RUTH MORALEZ Ord Tel#:[phone] CC Provid er:, ------ ------ ------ ------ ------ ------ ------ ------ ------ ------ ------ ------ ------ - INDICA TION: Right knee pain. Theo partida: Standi ng AP view of the bilate ral knees and latera l and sunris e views of the right knee demons trate constr ained type right total knee arthro plasty with patell ar resurf acing. No eviden ce of hardwa re compli cation or malali gnment . Small joint effusi on. Single AP view of the left knee demons trates mild medial tibiof emoral joint space narrow ing. No osseou s lesion or soft tissue abnorm ality. REPORT SIGNED BY: KEON BROWN 12:46: 21 [facility] - [facility] [address] [facility], [place], [address], 12/16/2023 13:42:35 08/24/19 25 08/22/2024 MRI, lower extre mity joint (s), w/o contr ast [facility] Access ion Number : [id number] Patijacinto roach Name: Kanchan Doss Record Number : [id number] Date of : 1955 Date of Exam: 2024 Referr ing Physic elvia: Mari Moralez [facility] [address] [place] [address] Urbano Mcgraw [id number] Exam: MR Hip Unilat (C-) CPT 56238 - Left Room Descri ption: [facility] Espr 1.5 CLINIC AL HISTOR Y: Status post left hip replac ement in 2022, pain. TECHNI QUE: Magnet ic resona nce imagin g of the LEFT HIP was perfor med WITHOU T inject ed contra st. The imagin g protoc ol was modifi ed to help reduce suscep tibili ty artifa ct. COMPAR CARLOS: None. THEO PARTIDA: Artifa ct indica mingo left hip replac ement. STIR martinez l images of the entire pelvis show normal bone marrow signal intens ity involv ing the visual ized sacrum , sacroi liac joints and pubis. The contra latera l hip shows normal bone marrow signal intens ity and mild chondr al thinni ng. T1-eula ghted images of the left hemipe lvis show promin ent fatty change and atroph y involv e the quadra tus femori s, obtura tor national coverage specialist us, obtura tor inclusion intern us and pirifo rmis muscle s. There is also atroph y of the left gluteu s minimu s and medius as well as the latera l proxim al aspect of the left rectus femori s. Postop erativ e change versus tendin opathy of the left gluteu s minimu s and medius tendon s. The left iliops oas and common hamstr ing tendon s are intact at attach ment sites. Dedica rainer multip lanar imagin g target ing the left hip demons trates no juxta- articu lar fluid collec tion or defini te bone marrow lesion althou gh peripr osthet ic bone is diffic ult to evalua te in some region s. No iliops oas or trocha nteric bursal collec tions are identi fied. IMPRES ALEIDA: MR examin ation of left hip employ ing suscep tibili ty suppre ssion parame ters demons tratin g no juxta articu lar fluid collec tion or bone lesion s. Postop erativ e change versus tendin opathy of the glutea l tendon s. Atroph y of the gluteu s medius , gluteu s minimu s, and rectus femori s. I, Halle Keys ra, MD, have review ed the images and report and concur with the reside nt, Tanesha thapa, theo partida. Electr onical ly Signed By: Halle Keys ra, MD [address] [facility] ([facility]) [address], [place], [address], 08/24/2024 15:06:46 08/24/19 25 08/22/2024 MRI, hip, w/o contr ast No observ ation record ed. 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 Degenerative changes are present in the left knee with narrowing of the medial joint compartment space. NUMBER OF IMAGES: 2 Reported by : SHAYNE SAVAGE M.D. On: Aug 10 2023 3:16P Signed by: SHAYNE SAVAGE M.D. On: Aug 10 2023 3:16P SAIMA TRINIDAD [address] [place] [address], [phone], [facility] 08/10/2023 15:23:44 Xr, Knee, 1 Or 2 View : Final Report EXAM#: [id number] PROCEDURE: OR 0027 XR PORTABLE KNEE RIGHT 1-2 VIEWS Aug 29 2023 6:55PM CLINICAL INDICATION: CHECK HARDWARE FINDINGS: Portable frontal and lateral right knee radiographs at 1955 and 1957 hours respectively on 08/26/2023 are submitted demonstrating a constrained type total knee arthroplasty in place without evident hardware complication or malalignment. There is regional postoperative soft tissue swelling and gas. NUMBER OF IMAGES: 2 Reported by : VERA ANTHONY M.D. On: Aug 30 2023 8:39A Signed by: VERA ANTHONY M.D. On: Aug 30 2023 8:39A SAIMA LACEY [address] [place] [address], [phone], [facility] 08/30/2023 08:43:58 Xr, Knee, 1 Or 2 View : [facility] Pt Name : KANCHAN ABERNATHY -Date: 1955 Sex: F Location : [facility] DXRAD Visit: [id number] Admit Date: 12-14-2023 Date of Service: 12-14-2023 Exam : XR KNEE 2 VW RIGHT Status: Final Order MD : MARI CLEANING Tel#: CC Provider:, ---- INDICATION: Right knee pain. 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 No evidence of hardware complication or malalignment. Small joint effusion. Single AP view of the left knee demonstrates mild medial tibiofemoral joint space narrowing. No osseous lesion or soft tissue abnormality. REPORT SIGNED BY: KEON LEVI 12/14/23 12:41:59 Alpesh stout [place] - [facility] 12/16/2023 13:42:35 Xr, Knee, Weightbearing : eflow Pt Name : KANCHAN ABERNATHY -Date: 1955 Sex: F Location : [facility] Visit: [id number] Admit Date: 12-14-2023 Date of Service: 12-14-2023 Exam : XR KNEE AP STANDING BILATERAL Status: Final Order MD : MARI CLEANNIG Tel#: CC Provider:, ---- INDICATION: Right knee pain. 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 No evidence of hardware complication or malalignment. Small joint effusion. Single AP view of the left knee demonstrates mild medial tibiofemoral joint space narrowing. No osseous lesion or soft tissue abnormality. REPORT SIGNED BY: KEON LEVI 12/14/23 12:46:21 Alpesh stout [place] - [facility] 12/16/2023 13:42:36 Mri, Lower Extremity Joint(s), W/o Contrast : [facility] Accession Number: [id number] Patient Name: Kanchan Abernathy Date of : 1955 Date of Exam: 08-22-2024 Referring Physician: Mari Cleaning [place] [address] Exam: MR Hip Unilat (C-) CPT 27915 - Left Room Description: [facility] Espr 1.5 CLINICAL HISTORY: Status post left hip replacement in 2022, pain. TECHNIQUE: Magnetic resonance imaging of the LEFT HIP was performed WITHOUT injected contrast. The imaging protocol was modified to help reduce susceptibility artifact. COMPARISON: None. FINDINGS: Artifact indicates left hip replacement. STIR coronal images of the entire pelvis show normal bone marrow signal intensity involving the visualized sacrum, sacroiliac joints and pubis. The contralateral hip shows normal bone marrow signal intensity and mild chondral thinning. T1-weighted images of the left hemipelvis show prominent fatty change and atrophy involve the quadratus femoris, obturator externus, obturator internus and piriformis muscles. There is also atrophy of the left gluteus minimus and medius as well as the lateral proximal aspect of the left rectus femoris. Postoperative change versus tendinopathy of the left gluteus minimus and medius tendons. The left iliopsoas and common hamstring tendons are intact at attachment sites. Dedicated multiplanar imaging targeting the left hip demonstrates no juxta-articular fluid collection or definite bone marrow lesion although periprosthetic bone is difficult to evaluate in some regions. No iliopsoas or trochanteric bursal collections are identified. IMPRESSION: MR examination of left hip employing susceptibility suppression parameters demonstrating no juxta articular fluid collection or bone lesions. Postoperative change versus tendinopathy of the gluteal tendons. Atrophy of the gluteus medius, gluteus minimus, and rectus femoris. I, Halle Hameed MD, have reviewed the images and report and concur with the resident, Tanesha Nolan's, findings. Electronically Signed By: SAIMA Palma MD [address] [facility] [address], [place], [address], [facility] 08/24/2024 15:06:46 Procedures Surgical History Date Name Laterality Status Provider Name and Address Organization Details Recorded Time 08/26/19 24 Orthopaedic Surgery completed Shea Pereira [facility] 09/22/2023 07:59:13 04/01/20 22 Orthopaedic Surgery completed Thea Perez [facility] 05/04/2022 17:20:17 05/02/19 21 Other completed [facility] 08/07/2021 08:41:23 05/02/19 20 Other completed [facility] 08/07/2021 08:41:15 05/02/19 19 Other completed [facility] 08/07/2021 08:40:45 05/02/19 19 Other completed [facility] 08/07/2021 08:40:56 05/02/19 17 Other completed [facility] 08/07/2021 08:40:33 05/02/19 16 Other completed [facility] 08/07/2021 08:40:18 05/02/19 15 Other completed [facility] 08/07/2021 08:39:56 05/02/19 13 Other completed [facility] 08/07/2021 08:39:19 05/02/19 13 Other completed [facility] 08/07/2021 08:39:32 05/02/19 13 Other completed [facility] 08/07/2021 08:39:49 05/02/19 10 Other completed [facility] 08/07/2021 08:37:36 05/02/19 10 Other completed [facility] 08/07/2021 08:39:06 05/02/19 09 Other completed [facility] 08/07/2021 08:37:04 05/02/19 09 Other completed [facility] 08/07/2021 08:37:24 05/02/19 08 Other completed [facility] 08/07/2021 08:36:53 05/02/18 99 Other completed [facility] 08/07/2021 08:36:36 05/02/18 73 Other completed [facility] 08/07/2021 08:36:20 05/02/18 72 Other completed [facility] 08/07/2021 08:36:08 Imaging Results None recorded. Procedure Notes None recorded. Medical Equipment None Reported. Allergies No known drug allergies Medications Name Sig Start Date Stop Date Status Note LastModified by Organization Details LastModified Time Prescriptio n - Change active Not Available Not Available N ot Available cyclobenzap rine 10 mg tablet 12/06 completed Not Available Not Available Not Available amoxicillin 500 mg capsule take 4 capsules by mouth 1 hour prior to dental procedure 2023 active Not Available Not Available Not Avai lable diclofenac 3 % topical gel active Not Available Not Available Not Available trazodone 50 mg tablet active Not Available Not Available Not Available tramadol 50 mg tablet Take 1 tablet every 6 hours by oral route as needed. 09/21 completed Not Available Not Available Not Available meloxicam 7.5 mg tablet 12/13 completed Not Available Not Available Not Available lorazepam 0.5 mg tablet TAKE 1 TABLET BY MOUTH TWICE A DAY active Not Available Not Available No t Available trazodone 100 mg tablet Take 1 tablet twice a day by oral route. active Not Available Not Available No t Available calcipotrie ne 0.005 % topical cream Apply TWICE A DAY FOR 5-10 DAYS 12/06 completed Not Available Not Available Not Available flecainide 100 mg tablet Take 1 tablet every 12 hours by oral route. active Not Available Not Available No t Available omeprazole 20 mg capsule,del ayed release active Not Available Not Available Not Available metoprolol succinate ER 25 mg tablet,exte nded release 24 hr active Not Available Not Available Not Available loteprednol etabonate 0.5 % eye drops,suspe nsion 12/06 completed Not Available Not Available Not Available celecoxib 100 mg capsule 12/06 completed Not Available Not Available Not Available doxycycline hyclate 100 mg tablet 12/06 completed Not Available Not Available Not Available oxycodone 5 mg tablet 05/05 completed Not Available Not Available Not Available metoprolol suc 100 mg-hydrochl orothiazide 12.5 mg tablet,ext. rel 24 hr Take 1 tablet every day by oral route. 12/06 completed Not Available Not Available Not Available Xiidra 5 % eye drops in a dropperette 12/13 completed Not Available Not Available Not Available Vitals Date Recorded Body height Body mass index (BMI) Body weight Provider Name and Address Organization Details Last Updated DateTime 08/10/2023 166.37 cm 29.8 kg/m2 43147.81 g Shea Pereira [facility] 08/10/2023 14:27:44 Date Recorded Body height Provider Name an d Address Organization Details Last Updated DateTime 08/13/2024 166.37 cm Brian Avila [facility] 08/13/2024 16:43:59 Date Recorded Body height Body mass index (BMI) Body weight Provider Name and Address Organization Details Last Updated DateTime 09/22/2023 166.37 cm 29.8 kg/m2 60365.81 g Shea Pereira [facility] 09/22/2023 07:58:29 Date Recorded Body height Provider Name an d Address Organization Details Last Updated DateTime 12/14/2023 166.37 cm Gaby Ricketts [facility] 12/14/2023 12:31:38 Date Recorded Body height Body mass index (BMI) Body weight Provider Name and Address Organization Details Last Updated DateTime 03/07/2023 166.37 cm 29.8 kg/m2 92537.81 g Liliam Claudio [facility] 03/07/2023 09:49:58 Social History Question Answer Notes LastModified by Organizat ion Details LastModified Time Tobacco Smoking Status Former Smoker Katherine Collazoroger stout [place] - [facility] 08/07/2021 08:24:00 What Is Your Level Of Caffeine Consumption? Moderate Information not available 08/07/2021 Have Any Other Tests Been Done For This Problem? MRI Information not available 08/07/2021 Is This Condition/proble m Affecting Your Ability To Exercise Or Perform Activities Of Daily Living? Yes Information not available 08/07/2021 How Much Tobacco Do You Smoke? No Information not available 08/07/2021 What Types Of Sporting Activities Do You Participate In? Biking Golf Hiking Walking Information not available 08/07/2021 How Many Years Have You Smoked Tobacco? 20 Information not available 08/07/2021 Sex: Unknown Functional Status Question Answer Note LastModified by Organizat ion Details LastModified Time What is your level of alcohol consumption? Occasional 2/week Information not available 08/07/2021 Do you or have you ever used smokeless tobacco? [id number] Information not available 08/07/2021 What is your occupation? Retired Information not available 08/07/2021 Do you or have you ever used e-cigarettes or vape? Never used electronic cigarettes Information not available 08/07/2021 What is your exercise level? Moderate Information not available 08/07/2021 Mental Status None recorded. Family History Relationship Description Onset Age of this Age Resolved Age Notes LastModified by Organization Details LastModified Time Father No current problems or disability Not available 08/07 08:31:20 Mother No current problems or disability Not available 08/07 08:31:20 Medical History Condition Response Blood Clots / Phlebitis N HIV or AIDS N Depression or Anxiety N High Blood Pressure N MRSA N Emphysema / Chronic Bronchitis N Any Other Significant Medical Issues Y Reaction to General/Local Anesthesia N Blood Disorder: Anemia, clotting disorde r, etc. (please specify) N Weight Gain / Loss N Hepatitis / Jaundice N Diabetes: Type I or II (please specify) N Kidney / Bladder Infections N Heart Condition: Heart Attac k, Afib, Irregular Heartbeat, etc. 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 Obstetrics History GPAL:G 0 P 0 0 0 0 Immunizations Vaccine Type Date Status Note Provider Nam e and Address Organization Details Recorded Time SARS-COV-2 (COVID-19) vaccine, UNSPECIFIED 06/23/2020 completed Katherine Tenzin null, [facility] 08/07/2021 08:30:58 SARS-COV-2 (COVID-19) vaccine, UNSPECIFIED 07/21/2020 completed Katherine Tenzin null, [facility] 08/07/2021 08:31:03 SARS-COV-2 (COVID-19) vaccine, UNSPECIFIED 03/12/2021 completed Katherine Tenzin null, [facility] 08/07/2021 08:31:07 SARS-COV-2 (COVID-19) vaccine, UNSPECIFIED 11/23/2021 completed Jaelyn Prakash null, [facility] 11/25/2021 16:31:45 influenza, unspecified formulation 02/01/2024 completed Brian stout, [facility] 08/13/2024 16:44:43 SARS-COV-2 (COVID-19) vaccine, UNSPECIFIED 02/09/2024 completed Brian stout, [facility] 08/13/2024 16:44:58 Past Encounters Encounter ID Performer Location Encounter Start Date Encounter Closed Date Diagnosis/Indication Diagnosis SNOMED-CT Code Diagnosis ICD10 Code Diagnosis IMO Codes Diagnosis Note [id number] SAIMA MORSE [facility] Office [address] [place] [id number] 08/07/2021 07:53:03 08/07/2021 09:38:08 Osteoarthritis of hip 799741145 M16.12 Gluteal tendinitis 89891 003 M76.02 [id number] HELENE CORNEJO MD [facility] [address] [place] [id number] 1 09/10/2021 11:02:39 09/14/2021 07:29:18 Osteoarthritis of left hip joint 8847162365 03260 M16.12 [id number] MARI CLEANING MD [facility] Office [address] [facility],[address] [phone] 11/25/2021 15:22:47 11/25/2021 18:43:44 Osteoarthritis of left hip joint 2484731950 76304 M16.12 [id number] SAIMA TRINIDAD [facility] [address] [place] [id number] 1 05/05/2022 10:58:08 05/05/2022 13:01:46 Osteoarthritis of left hip joint 8782083734 58860 M16.12 The patient is doing very well s/p L MCKENZIE with abductor repair. We discussed reasonable activity at this point in recovery. At the 6-week ana she may begin aqua therapy. At this time she may also gradually wean from her assistive devices. She understand s to let pain be her guide with activity and walking. In 4 weeks she may begin using her stationary bike and gradually increase resistance . The patient understand s to wait 90 days from the day of surgery before having dental work and was reminded of antibiotic prophylaxi s prior to dental procedures . The patient knows to follow-up in 6 weeks to assess progress and adjust physical therapy program. She agrees to call the office sooner with any new developmen ts, questions or concerns. [id number] MARI CLEANING MD [facility] [address] [place] [id number] 06/14/2022 09:35:09 06/14/2022 12:16:13 Osteoarthritis of left hip joint 5734988651 85771 M16.12 [id number] MARI CLEANING MD [facility] [address] [place] [id number] 1 08/02/2022 08:18:17 08/02/2022 10:22:59 Osteoarthritis of left hip joint 4572363677 46273 M16.12 [id number] MARI CLEANING MD [facility] [address] [place] [id number] 1 12/06/2022 07:59:12 12/06/2022 09:26:45 Osteoarthritis of left hip joint 4192382839 83275 M16.12 [id number] MARI CLEANING MD [facility] [address] [place] [id number] 1 03/07/2023 08:11:31 03/07/2023 11:00:04 Osteoarthritis of left hip joint 7938972156 04955 M16.12 [id number] MARI CLEANING MD [facility] Office [address] [id number] 08/10/2023 13:27:10 08/10/2023 15:50:12 Instability of joint of right knee 5990057890 542733 M25.107 [id number] SAIMA BRUSH [facility] [address] [place] [id number] 1 09/22/2023 07:45:43 09/22/2023 08:32:50 Osteoarthritis of right knee joint 0165719750 88824 M17.11 [id number] MARI CLEANING MD [facility] [address] [id number] 12/14/2023 11:55:23 12/14/2023 14:35:12 Instability of joint of right knee 7153894576 652580 M25.187 [id number] Mari Cleaning MD [place] [facility] [address] [place] [address] 08/13/2024 15:12:53 08/13/2024 17:05:42 Instability of joint of right knee 0958024994 775012 M25.361 Pes anseri nus bursitis of right knee 4926140082 621609 M70.51 Abnormal gait 67437092 R 26.9 Evaluate medius integrity Health Concerns Section Related Observation LastModified by Organization Detai ls LastModified Time None Recorded Concern Status LastModified by Organization Details LastModified Time None Recorded Advance Directives Directive None Recorded Payers Insurance Date Sequence Insurance Name Policy Number Policy Cuellar Covered Member ID Cuellar Member ID Guarantor Name 12/13/2023 1 UNSPECIFIED REMIT PAYOR Kanchan Abernathy 09/30/2024 1 [place] [employer] Kanchan Abernathy [id number] Kanchan Abernathy 09/30/2024 2 [facility]: MED[employer] (MEDICARE SUPPLEMENT) [id number] Kanchan Abernathy [id number] Kanchan Abernathy 09/30/2024 [employer] - SPECIALITY CLAIMS (MEDICARE DME REGION A) Kanchan Abernathy [id number] Knachan Abernathy Notes Date Note Type Note Provider Name and Address Organization Details Recorded Time 03/07/2023 text/html Ms. Abernathy is a 67-year-old female who presents to the clinic for an established patient visit. She reports that she is not completely where she wants to be, but better than where she was before surgery. She experiences discomfort in the quad area, which is not activity-related. She also has trouble sleeping due to pain in the same spot. She denies any lumbar spine issues. 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 She also reports having a gait that worsens as she walks along different groups. She has a history of an abductor muscle problem around her hip. She is considering getting an MRI to assess the status of the muscle. She also reports tightness in the area where most of the repair was done. She has a knee that is eight years old and feels movement in it. She had an incident where she came down a set of bleachers and the last step was much harder than she thought it was going to be, causing her knee to bend more than it normally does. MARI CLEANING MD [address] [place] [address], [id number] 03/07/2023 11:01:11 08/10/2023 text/html Ms. Abernathy is a 67-year-old female who presents to the clinic for a follow-up visit regarding her knee instability and pain. The patient reports that her hip has improved significantly, although not perfect, she notes a considerable improvement in her mobility. She mentions that she can now lift her leg off the ground, which she couldn't do during her last visit. However, she reports that her knee remains unstable and painful. She describes the instability as being more pronounced when walking on flat surfaces and climbing stairs. She also notes that wearing a brace or taping her knee seems to alleviate some of the instability and associated pain. The patient's knee instability has worsened over time, with the condition becoming notably worse about a year after her knee surgery eight years ago. She reports experiencing stiffness and difficulty climbing stairs due to a lack of bend in her knee. She underwent a scope procedure to remove scar tissue, which initially improved her condition, but she started to experience more instability and pain afterward. MARI CLEANING MD [address] [place] [address], [phone], [facility] 08/19/2023 13:33:19 09/22/2023 text/html This is a patient of Dr. Cleaning, s/p RIGHT TKA revision approx. 4 weeks ago.Patient is doing well, taking NOTHINGfor pain.Patient is currently progressing well with outpatient physical therapy.Patient is taking Aspirin for post op anticoagulation.No fevers, chills, falls, or trauma.Patient ambulates using a CANE .Patient reports no instability since her revision. She is happy with the results thus far. SAIMA BRUSH [address] [place] [address], [phone], [facility] 09/22/2023 09:21:33 12/14/2023 text/html Kanchan Abernathy is a 68-year-old female who presents to the clinic for an established visit. She reports ongoing issues with her left hip following her hip replacement surgery. She experiences pain and fatigue after walking approximately half a mile, which she attributes to her hip. Additionally, she mentions a history of an incisional hernia on her left flank, which was repaired with mesh. This area remains tense and sore, and she wonders if it is contributing to her hip pain. She also reports that her knee feels more stable post-surgery but still hyperextends occasionally, especially when transitioning from toes to heels. She notes that her left knee feels more flexed than it should be, and she experiences unsteadiness while walking, which she attributes to a lack of coordination between her quadriceps and hamstring muscles. She is concerned about the possibility of the mesh affecting her hip. MARI CLEANING MD [address] [place] [address], [phone], [facility] 12/16/2023 20:06:10 08/13/2024 text/html Kanchan Abernathy is a 68-year-old female who presents for a follow-up visit for her right knee. She reports that her right knee was doing well until approximately four months ago when she experienced significant swelling after performing step-ups in her water aerobics class. She usually does three sets of ten but did thirty on each side that day. The swelling was severe enough that she could hardly get her jeans on afterward. She iced it at home, and it took three days before she could walk on it again. Since then, the knee has not been the same. She mentions that wearing a brace helps, but she still experiences pain and instability. Kanchan also discusses her left hip, which was replaced in 2021. She notes a defect in the muscle that never filled in postoperatively. She can stand on her left leg but finds it straining to cloth picker her right foot. She does not experience significant pain in the hip but feels a lot of strain when trying to balance on her left leg. Mari Cleaning MD [address] [place] [address] Rd [address], [place], [phone], [facility] 08/14/2024 20:16:55 OBGyn Episode No OBEpisode recorded.
--- OUTSIDE RECORDS SUMMARY | 2025-02-28 08:03 | XMS_ITS | Encounter Summary ---
Author Organization [facility] Address [address] [place] [address] Care Team Providers Care Sort Operations Supervisor Name Role Phone Jennifer Padron PA-C Primary Care Provi teo Lorri Blair MD Unavailable [phone] Ottoniel Reece MD Unavailable Unavailable Familia Koo MD Unavailable [phone] Steve Rangel MD Unavailable Unavailable Jignesh Valentine MD Unavailable [phone] Encounter Details Date Type Department Care Team (Late st Contact Info) Description 01/28/2025 Scanned Document [facility] OPTHALMOLOGY SCAN Ophthalmology, Scan Social History Tobacco [...] Description 06/13/2025 9:30 AM EST Office Visit [address] [place] [phone] Jennifer Padron PA-C [address] [facility] [place] [address] documented as of this encounter Visit Diagnoses Not on filedocumented in this encounter Care Teams Sort Operations Supervisor Relationship Specialty Start Date End Date Jennifer Padron PA-C PCP - General Adult Health - PA/APVALENTE/DIRECTOR OF EVENT MARKETING/NETWORK INTELLIGENCE ANALYST 05/06/22 [place] [address] [place] [address] Referring Provider Urogynecology 11/22/23 Ottoniel Reece MD [address] [place] [address] Cardiology-Scan 11/22/23 Familia Koo MD [address] [place] [address] Pulmonary Disease 11/22/23 Steve Rangel MD [address] [place] [address] Referring Provider Gastroenterology 11/22/23 Jignesh Valentine MD [address] [place] [address] Physician Neurosurgery-Scan 11/22/23 Mj Friend Physician Endocrinology 10/31/23 Anita Cristobal [facility] Dermatology 10/31/23 documented as of this encounter
--- OUTSIDE RECORDS SUMMARY | 2025-02-28 08:03 | XMS_ITS | Encounter Summary ---
Author Organization [facility] Address [address] [place] [address] Care Team Providers Care Cotton Presser Name Role Phone Jennifer Padron PA-C Primary Care Provi teo Lorri Blair MD Unavailable [phone] Ottoniel Reece MD Unavailable Unavailable Familia Koo MD Unavailable [phone] Steve Rangel MD Unavailable Unavailable Jignesh Valentine MD Unavailable [phone] Encounter Details Date Type Department Care Team (Late st Contact Info) Description 02/04/2025 Scanned Document [facility] [address] [place] [address] Pulmonary, Scan Social History Tobacco Use Types Packs/Day [...] Description 06/13/2025 9:30 AM EST Office Visit [address] [place] [phone] Jennifer Padron PA-C [address] [place] [address] documented as of this encounter Visit Diagnoses Not on filedocumented in this encounter Care Teams Cotton Presser Relationship Specialty Start Date End Date Jennifer Padron PA-C PCP - General Adult Health - PA/APNP/FAMILY MEMBER CARETAKER/SENIOR WIND TURBINE TECHNICIAN 05/06/22 [place] [address] [place] [address] Referring Provider Urogynecology 11/22/23 Ottoniel Reece MD [address] [place] [address] Cardiology-Scan 11/22/23 Familia Koo MD [address] [place] [address] Pulmonary Disease 11/22/23 Steve Rangel MD [address] [place] [address] Referring Provider Gastroenterology 11/22/23 Jignesh Valentine MD [address] [place] [address] Physician Neurosurgery-Scan 11/22/23 Mj Friend Physician Endocrinology 10/31/23 Anita [facility] Dermatology 10/31/23 documented as of this encounter
--- OUTSIDE RECORDS SUMMARY | 2025-02-28 08:03 | XMS_ITS | Encounter Summary ---
Author Organization [facility] Address [address] [place], [place] [id number] Care Team Providers Care Nitrocellulose Maker Name Role Phone Jennifer Padron PA-C Primary Care Provi teo Lorri Blair MD Unavailable [phone] Ottoniel Reece MD Unavailable Unavailable Familia Koo MD Unavailable [phone] Steve Rangel MD Unavailable Unavailable Jignesh Valentine MD Unavailable [phone] Encounter Details Date Type Department Care Team (Late st Contact Info) Description 02/07/2025 Scanned Document [address] [phone] Pulmonary, Scan Social History Tobacco Use Types [...] Description 06/13/2025 9:30 AM EST Office Visit [address] [phone] Jennifer Padron PA-C [address] [place] [address] documented as of this encounter Visit Diagnoses Not on filedocumented in this encounter Care Teams Nitrocellulose Maker Relationship Specialty Start Date End Date Jennifer Padron PA-C PCP - General Adult Health - PA/APNP/REFRIGERATOR REPAIR TECHNICIAN/CALL MANAGER 05/06/22 Lorri Blair MD [address] [place] [address] Referring Provider Urogynecology 11/22/23 Ottoniel Reece MD [address] [place] [address] Cardiology-Scan 11/22/23 Familia Koo MD [address] [place] [address] Pulmonary Disease 11/22/23 Steve Rangel MD [address] [place] [address] Referring Provider Gastroenterology 11/22/23 Jignesh Valentine MD [address] [place] [address] Physician Neurosurgery-Scan 11/22/23 Mj Friend Physician Endocrinology 10/31/23 Anita [facility] Dermatology 10/31/23 documented as of this encounter
--- OUTSIDE RECORDS SUMMARY | 2025-02-28 08:03 | XMS_ITS | Encounter Summary ---
Author Organization [facility] Address [address] [place] [address] Care Team Providers Care Dialysis Social Worker Name Role Phone Jennifer Padron PA-C Primary Care Provi teo Lorri Blair MD Unavailable [phone] Ottoniel Reece MD Unavailable Unavailable Familia Koo MD Unavailable [phone] Steve Rangel MD Unavailable Unavailable Jignesh Valentine MD Unavailable [phone] Encounter Details Date Type Department Care Team (Late st Contact Info) Description 01/09/2025 Scanned Document [address] [phone] Neurology, Scan Social History Tobacco [...] Description 06/13/2025 9:30 AM EST Office Visit [address] [phone] Jennifer Padron PA-C [address] [place] [address] documented as of this encounter Visit Diagnoses Not on filedocumented in this encounter Care Teams Dialysis Social Worker Relationship Specialty Start Date End Date Jennifer Padron PA-C PCP - General Adult Health - PA/APNP/PROCESS OWNER/DOCUMENT CONTROL ASSOCIATE 05/06/22 Lorri Blari MD [address] [place] [address] Referring Provider Urogynecology 11/22/23 Ottoniel Reece MD [address] [place] [address] Cardiology-Scan 11/22/23 Familia Koo MD [address] [place] [address] Pulmonary Disease 11/22/23 Steve Rangel MD [address] [place] [address] Referring Provider Gastroenterology 11/22/23 Jignesh Valentine MD [address] [place] [address] Physician Neurosurgery-Scan 11/22/23 Mj Friend Physician Endocrinology 10/31/23 Anita Cristobal [facility] Dermatology 10/31/23 documented as of this encounter
[2025-02-28 08:45] VITALS: PULSE 64
== END 2025-02-28 07:59 | disposition home or self-care (01) ==
LOC: HO.RESP 07:58
PROVIDERS: PCP Physician Assistant Medical; Visit Provider Hospitalist
DX: R91.8 Other nonspecific abnormal finding of lung field (principal)
CPT/HCPCS: 94060; 94640; 94727; 94729

== ENCOUNTER → 2025-02-28 08:01 | Outpatient (BNV) | payer MEDICARE, SELFPAY | PROVIDERS: PCP Physician Assistant Medical; Visit Provider Internal Medicine Pulmonary Disease | DX: R91.8 Other nonspecific abnormal finding of lung field (principal) | CPT/HCPCS: 94060; 94727; 94729 ==